=== PATIENT | female | born 1965 | race Caucasian/White ===

== ENCOUNTER → 2019-12-19 13:57 | Outpatient (BNVA) | payer MEDICAID, SELFPAY | PROVIDERS: PCP Family Medicine; Referring Provider Family Medicine; Visit Provider Internal Medicine Cardiovascular Disease | DX: R07.9 Chest pain, unspecified (principal); R00.2 Palpitations; E78.5 Hyperlipidemia, unspecified | CPT/HCPCS: 99213 ==

== ENCOUNTER 2020-01-13 13:49 | Outpatient (REF) | payer MEDICAID, SELFPAY | END 2020-01-13 13:50 | disposition home or self-care (01) | LOC: HO.LAB 13:49 | PROVIDERS: PCP Family Medicine; Visit Provider Internal Medicine | DX: Z20.828 Contact with and (suspected) exposure to other viral communicable diseases (principal) | CPT/HCPCS: U0003 ==

== ENCOUNTER 2020-03-03 12:06 | Outpatient (REF) | payer MEDICAID, SELFPAY ==
--- NOTE | 2020-03-03 12:10 | MM_ITS ---
EXAMINATION: MM SCREENING DIGITAL BREAST TOMOSYNTHESIS, BILATERAL CLINICAL INFORMATION: Screening. Asymptomatic. Benign right stereotactic biopsy 03/12/2019 (breast parenchyma with fibrocystic changes, usual ductal hyperplasia, columnar cell change, apocrine metaplasia, and focal microcalcifications). The lifetime risk of breast cancer based on the Tyrer-Cuzick Model is 5%. COMPARISON: Mammography: 04/12/2019, 03/12/2019, 03/04/2019, 03/01/2018, 02/21/2018 TECHNIQUE: Digital breast tomosynthesis is performed in both the craniocaudal and mediolateral oblique views along with computer-aided detection (CAD). Synthesized 2D images are generated from the tomosynthesis. FINDINGS: There are scattered areas of fibroglandular density (ACR BI-RADS breast composition Category b). Parenchymal pattern is similar to prior studies. There is no developing density or interval mass or architectural abnormality. No abnormal calcifications. Biopsy clip marker central 3:00 right breast is again noted with no recurrent calcifications in this area. The axilla and skin contours are unremarkable. MM/MM tomosynthesis screening BI IMPRESSION: No mammographic evidence of malignancy. ASSESSMENT: BI-RADS 2: Benign RECOMMENDATION: Routine annual mammography screening. This patient's information was entered into a reminder system with a target due date for their next mammogram.
== END 2020-03-03 12:07 | disposition home or self-care (01) ==
LOC: HO.MAMMO 12:06
PROVIDERS: PCP Family Medicine; Visit Provider Family Medicine
DX: Z12.31 Encounter for screening mammogram for malignant neoplasm of breast (principal)
CPT/HCPCS: 77063; 77067

== ENCOUNTER 2020-04-11 18:52 | Emergency (ER) | payer MEDICAID, SELFPAY ==
[2020-04-11 19:02] VITALS: BP 128/66; BP 147/73; PULSE 71; PULSE 89; RESP 17; TEMP 36.6; O2SAT 95; O2SAT 98; BMI 34.4
--- NOTE | 2020-04-11 19:05 | ED_ITS ---
HPI - Chest Pain General Chief Complaint: Chest Pain Stated Complaint: CP,SUB-STERNAL AND NON-RADIATING Time Seen by Provider: 04/11/20 19:03 Source: patient Mode of arrival: EMS Limitations: language barrier History of Present Illness HPI narrative: Patient history of fibromyalgia no known coronary artery disease complaining of chest pain since last night comes and goes increases on palpation feels palpitation and shortness of breath also complaining of nausea when she was in the ambulance pain get worse on palpation and movement MD complaint: chest pain Onset (ago): day(s) (1) Timing of current episode: constant Onset: during rest Pain location: substernal Pain radiation: none Severity: mild Quality: heaviness Relieving factors: nothing Exacerbating factors: palpation and movement Associated symptoms: nausea Treatment prior to arrival: none Related Data Home Medications Medication Instructions Recorded Confirmed baclofen 20 mg tablet 20 mg PO DAILY 12/19/19 12/19/19 bupropion HCl 150 mg tablet,12 hr 150 mg PO BID 12/19/19 12/19/19 sustained-release fluticasone propionate 110 1 puff INHALATION BID 12/19/19 12/19/19 mcg/actuation HFA aerosol inhaler gabapentin 600 mg tablet 600 mg PO DAILY 12/19/19 12/19/19 hydrochlorothiazide 25 mg tablet 25 mg PO DAILY 12/19/19 12/19/19 omeprazole 20 mg capsule,delayed 20 mg PO DAILY 12/19/19 12/19/19 release tramadol 50 mg tablet 50 mg PO Q6H PRN 12/19/19 12/19/19 Previous Rx's Medication Instructions Recorded atorvastatin 20 mg tablet 20 mg PO DAILY 60 Days #60 tab 12/19/19 Allergies Allergy/AdvReac Type Severity Reaction Status Date / Time No Known Allergies Allergy Verified 04/11/20 19:02 Review of Systems Review of Systems: Constitutional : No Weight loss, No Fever, No Chills ENT/Mouth : No sore throat, No Rhinorrhea Eyes: No Eye Pain, No Swelling Cardiovascular : +Chest Pain, no palpitations Respiratory : No Cough, No Sputum, no shortness of breath Gastrointestinal : no Nausea, No Vomiting, No Diarrhea, No abdominal Pain, no black stools Genitourinary : No Dysuria, No Urinary Frequency Musculoskeletal : No joint pain, No Myalgias, No Joint Swelling Skin : No Skin Lesions, No rash Neuro : No Weakness, No Numbness, No Dizziness, No Headache Psych : No Anxiety/Panic, No Depression Heme/Lymph: No Bruising, No Lymphadenopathy Endocrine : No Polyuria, No Polydipsia All other systems reviewed and are negative [facility] Past Medical History Medical History Chest pain HTN (hypertension) Hyperlipidemia Palpitations Scoliosis Surgical History H/O bilateral oophorectomy History of bilateral tubal ligation Family History Family History Father HTN (hypertension) Mother HTN (hypertension) Maternal Grandfather Heart disease Social History Social History Alcohol intake: current Alcohol intake frequency: holidays/special occasions only Smoking Status: Current every day smoker Use of substances other than those prescribed or required for medical reasons: No Advance Directives: No Advance Directives Information Provided: No Physical Exam Vital Signs: Vital Signs: Last Vital Signs Temp 97.9 F 04/11/20 19:02 Pulse 71 04/11/20 19:02 Resp 17 04/11/20 19:02 BP 128/66 04/11/20 19:02 Pulse Ox 95 04/11/20 19:02 Body Mass Index 34.4 Appearance: Alert. Oriented X3. No acute distress. Eyes: Pupils equal, round and reactive to light. ENT: Pharynx normal. Neck: Normal inspection. Neck supple. CVS: Normal heart rate and rhythm. Pulses normal. Midsternal tenderness on palpation Respiratory: No respiratory distress. Breath sounds normal. Abdomen: Soft and nontender. Bowel sounds are present, no mass palpable, no CVA tenderness Skin: Skin warm and dry. Normal skin color. Normal skin turgor. Extremities: No lower extremity edema. Neuro: Oriented X 3. No motor deficit. No sensory deficit. MDM - Chest Pain MDM Narrative Medical decision making narrative: Patient has atypical chest pain reproducible on palpation of the mid sternum and right intercostal space high sensitive troponin is negative normal EKG discharge her home on pain medication patient does have history of fibromyalgia likely the cause of pain Medical Records Data Attestation: I reviewed the patient's medical records. Lab Data Attestation: I reviewed the patient's lab results. Result diagrams: 04/11/20 19:37 04/11/20 19:37 Labs: Lab Results 04/11/20 04/11/20 04/11/20 Range/Units 19:37 19:37 19:37 WBC 10.0 (4.8-10.8) X10*3/uL RBC 4.43 (4.20-5.50) X10*6/uL Hgb 12.7 (12.0-16.0) g/dl Hct 38.8 (37-47) % MCV 87.6 (80-98) fL MCH 28.7 (27.0-33.0) pg MCHC 32.7 (31.0-35.0) g/dl RDW 13.1 (11.0-16.0) % Plt Count 207 (160-400) X10*3/uL MPV 10.8 (9.4-12.3) fL Immature Gran % (Auto) 0.3 (0.0-0.4) % Neut % (Auto) 69.5 (45-73) % Lymph % (Auto) 22.0 (20-40) % [place] % (Auto) 7.6 (2-11) % Eos % (Auto) 0.4 (0-4) % Baso % (Auto) 0.2 (0-2) % Lymph # (Auto) 2.2 (1.2-4.9) X10*3/uL [place] # (Auto) 0.8 (0.1-1.2) X10*3/uL Eos # (Auto) 0.0 (0.0-0.4) X10*3/uL Baso # (Auto) 0.0 (0.0-0.2) X10*3/uL Abs Immat Gran (auto) 0.03 (0.00-0.03) X10*3/uL Absolute Neuts (auto) 7.0 (2.0-8.3) X10*3/uL Absolute Nucleated RBC 0.000 (0.0-0.012) X10*3/uL Nucleated RBC % (auto) 0.0 (0.0-0.2) /100WBC PT 13.0 (10.8-13.0) SEC INR 1.1 (0.9-1.1) Sodium 141 (135-145) mmol/L Potassium 3.5 (3.3-5.1) mmol/L Chloride 106 (96-108) mmol/L Carbon Dioxide 24 (22-29) mmol/L Anion Gap 15 (12-20) BUN 17 H (9-16) mg/dL Creatinine 0.88 (0.5-1.4) mg/dL Estim Creat Clear Calc 85.8 Estimated GFR > 60 Random Glucose 117 H (60-115) mg/dL Calcium 8.8 (8.4-10.2) mg/dL Total Bilirubin 0.4 (0.0-1.0) mg/dL Direct Bilirubin < 0.2 (0.0-0.5) mg/dL AST 27 (5-31) U/L ALT 50 H (0-31) U/L Alkaline Phosphatase 51 (39-117) U/L Troponin I High Sens (<3.5-17.0) ng/L Total Protein 6.4 L (6.5-8.0) g/dL Albumin 3.9 (3.5-5.0) g/dL Lipase 28 (8-78) U/L 04/11/20 Range/Units 19:37 WBC (4.8-10.8) X10*3/uL RBC (4.20-5.50) X10*6/uL Hgb (12.0-16.0) g/dl Hct (37-47) % MCV (80-98) fL MCH (27.0-33.0) pg MCHC (31.0-35.0) g/dl RDW (11.0-16.0) % Plt Count (160-400) X10*3/uL MPV (9.4-12.3) fL Immature Gran % (Auto) (0.0-0.4) % Neut % (Auto) (45-73) % Lymph % (Auto) (20-40) % [place] % (Auto) (2-11) % Eos % (Auto) (0-4) % Baso % (Auto) (0-2) % Lymph # (Auto) (1.2-4.9) X10*3/uL [place] # (Auto) (0.1-1.2) X10*3/uL Eos # (Auto) (0.0-0.4) X10*3/uL Baso # (Auto) (0.0-0.2) X10*3/uL Abs Immat Gran (auto) (0.00-0.03) X10*3/uL Absolute Neuts (auto) (2.0-8.3) X10*3/uL Absolute Nucleated RBC (0.0-0.012) X10*3/uL Nucleated RBC % (auto) (0.0-0.2) /100WBC PT (10.8-13.0) SEC INR (0.9-1.1) Sodium (135-145) mmol/L Potassium (3.3-5.1) mmol/L Chloride (96-108) mmol/L Carbon Dioxide (22-29) mmol/L Anion Gap (12-20) BUN (9-16) mg/dL Creatinine (0.5-1.4) mg/dL Estim Creat Clear Calc Estimated GFR Random Glucose (60-115) mg/dL Calcium (8.4-10.2) mg/dL Total Bilirubin (0.0-1.0) mg/dL Direct Bilirubin (0.0-0.5) mg/dL AST (5-31) U/L ALT (0-31) U/L Alkaline Phosphatase (39-117) U/L Troponin I High Sens < 3.5 (<3.5-17.0) ng/L Total Protein (6.5-8.0) g/dL Albumin (3.5-5.0) g/dL Lipase (8-78) U/L ECG Data ECG #1: Attestation: I personally reviewed and interpreted this ECG as follows: Interpretation: Normal sinus rhythm heart rate 65 beats per minute normal axis normal intervals no acute ST T wave changes impression normal EKG Discharge Plan Discharge Prescriptions: No Action baclofen 20 mg tablet 20 mg PO DAILY RF: 0 tramadol 50 mg tablet 50 mg PO Q6H PRNRF: 0 gabapentin 600 mg tablet 600 mg PO DAILY RF: 0 Flovent HFA 110 mcg/actuation HFA aerosol inhaler 1 puff inhalation BID RF: 0 hydrochlorothiazide 25 mg tablet 25 mg PO DAILY RF: 0 omeprazole 20 mg capsule,delayed release(/EC) 20 mg PO DAILY RF: 0 bupropion HCl [Wellbutrin SR] 150 mg tablet sustained-release 12 hr 150 mg PO BID RF: 0 atorvastatin 20 mg tablet 20 mg PO DAILY 60 Days Qty: 60 RF: 3
--- NOTE | 2020-04-11 19:17 | ECG_ITS ---
Test Reason : CHEST PAIN Blood Pressure : / mmHG Vent. Rate : 065 BPM Atrial Rate : 065 BPM P-R Int : 174 ms QRS Dur : 086 ms QT Int : 424 ms P-R-T Axes : 059 015 046 degrees QTc Int : 440 ms Normal sinus rhythm Normal ECG When compared with ECG of 01-JAN-2019 09:00, No significant change was found Referred By: Giles Vides Electronically Signed By:Jamison Zeng
--- NOTE | 2020-04-11 19:17 | XR_ITS ---
EXAMINATION: XR CHEST CLINICAL INFORMATION: Chest pain COMPARISON: 01/01/2019 TECHNIQUE: Frontal view of the chest was obtained. FINDINGS: Stable cardiomediastinal silhouette. Monitoring leads overlie the chest. Hazy airspace opacities in the right lower lung, more prominent as compared to previous. No focal consolidation left lung. No edema, effusion or pneumothorax. Scoliotic curvature of the spine. XR/XR chest 1V IMPRESSION: Right basilar airspace opacities, more prominent as compared to previous, raising concern for an infiltrate in this region.
[2020-04-11] MEDS: Ketorolac Tromethamine 30 MG/ML VIAL IVPUSH (19:27)
--- NOTE | 2020-04-11 19:27 | PC.NURSE ---
pt medicated for pain per order, vss, cardiac tech nsr 60s
[2020-04-11 19:42] LABS: MANUAL DIFF FLAG NO
[2020-04-11 19:43] LABS: Basophils Percent Auto 0.2 % (0-2); Eosinophils Percent Auto 0.4 % (0-4); Hematocrit 38.8 % (37-47); Hemoglobin 12.7 g/dl (12.0-16.0); Imm Gran Abs Auto 0.03 X10*3/uL (0.00-0.03); Imm Gran Pct Auto 0.3 % (0.0-0.4); Lymphocytes Absolute Auto 2.2 X10*3/uL (1.2-4.9); Mean Corpuscular HGB Conc 32.7 g/dl (31.0-35.0); Mean Corpuscular Hemoglobin 28.7 pg (27.0-33.0); Mean Corpuscular Volume 87.6 fL (80-98); Mean Platelet Volume 10.8 fL (9.4-12.3); Monocytes Absolute Auto 0.8 X10*3/uL (0.1-1.2); Monocytes Percent Auto 7.6 % (2-11); Neutrophils Percent Auto 69.5 % (45-73); Platelet Count 207 X10*3/uL (160-400); Red Blood Count 4.43 X10*6/uL (4.20-5.50); Red Cell Distribution Width 13.1 % (11.0-16.0)
[2020-04-11 19:48] LABS: INTERNATIONAL NORM RATIO 1.1 (0.9-1.1)
[2020-04-11 20:10] LABS: Alanine Aminotransferase 50 U/L (0-31); Albumin Level 3.9 g/dL (3.5-5.0); Alkaline Phosphatase 51 U/L (39-117); Anion Gap 15 (12-20); Aspartate Amino Transferase 27 U/L (5-31); Bilirubin Direct < 0.2 mg/dL (0.0-0.5); Bilirubin Total 0.4 mg/dL (0.0-1.0); Blood Urea Nitrogen 17 mg/dL (9-16); Calcium 8.8 mg/dL (8.4-10.2); Carbon Dioxide 24 mmol/L (22-29); Chloride 106 mmol/L (96-108); Creatinine Clr Calc Pharmacy 85.8; Estimated Glomerular Filt Rate > 60; Glucose Random 117 mg/dL (60-115); Lipase 28 U/L (8-78); Potassium 3.5 mmol/L (3.3-5.1); Sodium 141 mmol/L (135-145); Total Protein 6.4 g/dL (6.5-8.0)
[2020-04-11 20:13] LABS: Troponin-I High Sensitivity < 3.5 ng/L (<3.5-17.0)
[2020-04-11] MEDS: traMADoL HCL 50 MG TABLET PO (20:57)
== END 2020-04-11 21:05 | disposition home or self-care (01) ==
PROVIDERS: Emergency Provider Internal Medicine
DX: R07.89 Other chest pain (principal); M79.7 Fibromyalgia; I10 Essential (primary) hypertension; E78.5 Hyperlipidemia, unspecified; F17.200 Nicotine dependence, unspecified, uncomplicated; Z79.899 Other long term (current) drug therapy
CPT/HCPCS: 36415; 71045; 80048; 80076; 83690; 84484; 85025; 85610; 93005; 96374; 99284; J1885

== ENCOUNTER 2020-04-24 14:52 | Outpatient (REF) | payer MEDICAID, SELFPAY | END 2020-04-24 14:53 | disposition home or self-care (01) | LOC: HO.LAB 14:52 | PROVIDERS: Visit Provider Internal Medicine | DX: Z20.822 Contact with and (suspected) exposure to COVID-19 (principal) | CPT/HCPCS: 36415; C9803; U0003; U0005 ==

== ENCOUNTER 2020-09-07 09:25 | Outpatient (REF) | payer MEDICAID, SELFPAY | END 2020-09-07 09:26 | disposition home or self-care (01) | LOC: HO.HOSX 09:25 | PROVIDERS: Visit Provider Orthopaedic Surgery | DX: M79.641 Pain in right hand (principal) | CPT/HCPCS: 99202 ==

== ENCOUNTER 2020-09-16 09:28 | Outpatient (REF) | payer MEDICAID, SELFPAY ==
[2020-09-16 15:59] LABS: Alanine Aminotransferase 41 U/L (0-31); Albumin Level 4.2 g/dL (3.5-5.0); Alkaline Phosphatase 65 U/L (39-117); Aspartate Amino Transferase 23 U/L (5-31); Bilirubin Direct 0.2 mg/dL (0.0-0.5); Bilirubin Total 0.7 mg/dL (0.0-1.0); Total Protein 6.9 g/dL (6.5-8.0)
== END 2020-09-16 09:29 | disposition home or self-care (01) ==
LOC: HO.LAB 09:28
PROVIDERS: PCP Family Medicine; Referring Provider Family Medicine; Visit Provider Nurse Practitioner Family
DX: K59.00 Constipation, unspecified (principal); R10.9 Unspecified abdominal pain; R14.0 Abdominal distension (gaseous); I10 Essential (primary) hypertension; E78.5 Hyperlipidemia, unspecified; R00.2 Palpitations; M41.9 Scoliosis, unspecified; Z90.722 Acquired absence of ovaries, bilateral; Z98.51 Tubal ligation status
CPT/HCPCS: 36415; 80076; 99202

== ENCOUNTER → 2021-01-20 10:41 | Outpatient (BNVA) | payer MEDICAID, SELFPAY | PROVIDERS: PCP Family Medicine; Referring Provider Family Medicine; Visit Provider Internal Medicine Cardiovascular Disease | DX: R07.9 Chest pain, unspecified (principal) | CPT/HCPCS: 93005; 99212 ==

== ENCOUNTER 2021-04-23 09:34 | Outpatient (REF) | payer MEDICAID, SELFPAY ==
--- NOTE | ~2021-04-23 | MM_ITS ---
EXAMINATION: MM SCREENING DIGITAL BREAST TOMOSYNTHESIS, BILATERAL CLINICAL INFORMATION: Screening. Asymptomatic. The lifetime risk of breast cancer based on the Tyrer-Cuzick Model is 5%. COMPARISON: Mammography: 03/03/2020, 10/11/2019, 03/12/2019, 03/04/2019, 02/26/2019, 02/21/2018 TECHNIQUE: Digital breast tomosynthesis is performed in both the craniocaudal and mediolateral oblique views along with computer-aided detection (CAD). Synthesized 2D images are generated from the tomosynthesis. FINDINGS: There are scattered areas of fibroglandular density (ACR BI-RADS breast composition Category b). There are no significant masses, abnormal calcifications, or other abnormalities. There is biopsy clip marker mid 3:30 o'clock right breast. No recurrent calcifications. Background bilateral stromal markings are similar to prior studies. No developing density. No significant changes. MM/MM tomosynthesis screening BI IMPRESSION: No mammographic evidence of malignancy. ASSESSMENT: BI-RADS 2: Benign RECOMMENDATION: Routine annual mammography screening. This patient's information was entered into a reminder system with a target due date for their next mammogram.
== END 2021-04-23 09:35 | disposition home or self-care (01) ==
LOC: HO.MAMMO 09:34
PROVIDERS: PCP Family Medicine; Visit Provider Family Medicine
DX: Z12.31 Encounter for screening mammogram for malignant neoplasm of breast (principal)
CPT/HCPCS: 77063; 77067

== ENCOUNTER → 2021-07-19 10:36 | Outpatient (BNVA) | payer MEDICAID, SELFPAY | PROVIDERS: PCP Family Medicine; Referring Provider Family Medicine; Visit Provider Nurse Practitioner Family | DX: K21.9 Gastro-esophageal reflux disease without esophagitis (principal); K58.1 Irritable bowel syndrome with constipation; K59.04 Chronic idiopathic constipation; R10.12 Left upper quadrant pain | CPT/HCPCS: 99212 ==

== ENCOUNTER 2021-08-10 08:21 | Outpatient (REF) | payer MEDICAID, SELFPAY ==
[2021-08-10 09:10] LABS: Hematocrit 41.9 % (37.0-47.0); Hemoglobin 13.4 g/dl (12.0-16.0); Mean Corpuscular Hemoglobin 28.5 pg (27.0-33.0); Mean Platelet Volume 10.8 fL (9.4-12.3); Platelet Count 221 X10*3/uL (160-400); Red Blood Count 4.71 X10*6/uL (4.20-5.50); Red Cell Distribution Width 13.5 % (11.0-16.0); White Blood Count 6.8 X10*3/uL (4.8-10.8)
[2021-08-10 09:35] LABS: Alanine Aminotransferase 27 U/L (0-31); Albumin Level 3.9 g/dL (3.5-5.0); Alkaline Phosphatase 50 U/L (39-117); Anion Gap 11 (12-20); Aspartate Amino Transferase 19 U/L (5-31); Bilirubin Total 0.5 mg/dL (0.0-1.0); Blood Urea Nitrogen 15 mg/dL (9-16); Calcium 9.5 mg/dL (8.4-10.2); Carbon Dioxide 26 mmol/L (22-29); Chloride 108 mmol/L (96-108); Estimated Glomerular Filt Rate > 60; Glucose Random 106 mg/dL (60-115); Lipase 20 U/L (8-78); Potassium 4.7 mmol/L (3.3-5.1); Sodium 140 mmol/L (135-145); Total Protein 6.6 g/dL (6.5-8.0)
[2021-08-10 10:03] LABS: TSH reflex Free T4 0.99 uIU/mL (0.32-4.0)
[2021-08-10 10:06] LABS: Folate 13.4 ng/mL (> or = 4.0); Vitamin B12 193 pg/mL (200-900)
[2021-08-14 12:41] LABS: Vitamin D 25-OH, D2 <4 ng/mL; Vitamin D 25-OH, D3 20 ng/mL; Vitamin D 25-OH, Total 20 ng/mL (30-100)
[2021-08-15 16:26] LABS: Pancreatic Elastase-1 291 mcg/g
== END 2021-08-10 08:22 | disposition home or self-care (01) ==
LOC: HO.LAB 08:21
PROVIDERS: Internal Medicine Cardiovascular Disease; PCP Family Medicine; Visit Provider Nurse Practitioner Family
DX: R10.9 Unspecified abdominal pain (principal); R19.7 Diarrhea, unspecified; E55.9 Vitamin D deficiency, unspecified; K21.9 Gastro-esophageal reflux disease without esophagitis
CPT/HCPCS: 36415; 80053; 82306; 82607; 82656; 82746; 83690; 84443; 85027; 87338

== ENCOUNTER → 2021-10-01 10:08 | Outpatient (BNVA) | payer MEDICAID, SELFPAY | PROVIDERS: PCP Family Medicine; Visit Provider Nurse Practitioner Family | DX: Z01.818 Encounter for other preprocedural examination (principal); K21.9 Gastro-esophageal reflux disease without esophagitis; K58.2 Mixed irritable bowel syndrome; A04.8 Other specified bacterial intestinal infections; Z79.899 Other long term (current) drug therapy | CPT/HCPCS: 99212 ==

== ENCOUNTER 2021-10-15 09:55 | Outpatient (REF) | payer MEDICAID, SELFPAY ==
[2021-10-16 11:14] LABS: H Pylori Breath Test Positive (Negative)
== END 2021-10-15 09:56 | disposition home or self-care (01) ==
LOC: HO.LAB 09:55
PROVIDERS: Visit Provider Nurse Practitioner Family
DX: R10.9 Unspecified abdominal pain (principal); K21.9 Gastro-esophageal reflux disease without esophagitis
CPT/HCPCS: 36415; 83013; 99211

== ENCOUNTER 2021-12-03 17:35 | Outpatient (REF) | payer MEDICAID, SELFPAY ==
[2021-12-05 14:56] LABS: H Pylori Breath Test Positive (Negative)
== END 2021-12-03 17:36 | disposition home or self-care (01) ==
LOC: HO.LNP 17:35
PROVIDERS: Visit Provider Nurse Practitioner Family
DX: Z01.818 Encounter for other preprocedural examination (principal); A04.8 Other specified bacterial intestinal infections; K21.9 Gastro-esophageal reflux disease without esophagitis
CPT/HCPCS: 83013; 99212

== ENCOUNTER 2022-03-04 07:27 | Day surgery (SDC) | payer MEDICAID, SELFPAY ==
[2022-03-04 07:43] VITALS: BMI 34.1
--- NOTE | 2022-03-04 07:43 | P.HPSUR_ITS ---
Pre-Procedural Eval Section A
--- NOTE | 2022-03-04 07:43 | MHC.SHP ---
Pre-Procedural Eval Section A Date of Service: 03/04/22 The patient is an INPATIENT: No The History & Physical has been completed within 30 days and I have reviewed it.: No Section B Chief Complaint: reflux,constipation Details of Present Illness: Colon cancer screening, GERD Relevant Family History (Specify if Yes): No Relevant Social History: Tobacco Use Present Medications: see Short Stay Collaborative assessment Medical History: Significant History (Chest pain HTN (hypertension) Hyperlipidemia Palpitations Scoliosis) History of Previous Operations: Relevant previous surgery/procedure and date(s) (H/O bilateral oophorectomy History of bilateral tubal ligation) Allergies: Allergies Allergy/AdvReac Type Severity Reaction Status Date / Time No Known Allergies Allergy Verified 03/04/22 07:41 Review of Systems Sugical H&P ROS: Negative: Constitution, Cardiovascular, Respiratory and Gastrointestinal Exam Surgical H&P Exam: Normal: Heart, Normal: Lungs, Normal: Extremities and Normal: Abdomen Plan Diagnosis/Plan: Unchanged I have reviewed the history and physical and performed a pertinent physical examination on my patient. No changes have occurred unless specified. Time Spent With Patient Time: Total time managing care of this patient today ____ minutes.
[2022-03-04 07:49] VITALS: BP 132/76; PULSE 63; RESP 16; TEMP 36.6; O2SAT 96
[2022-03-04] MEDS: Lactated Ringers 1,000 ML 100 ML IVCONT (08:05)
--- NOTE | 2022-03-04 08:34 | HO.ANESPROP2 ---
[facility] Active Problems Active Problems: All Active Problems (Updated 03/04/22 @ 07:40 by Paola Pappas RN) Strain of finger of right hand (Acute) Hyperlipidemia (Acute) Scoliosis (Acute) Chest pain (Acute) Palpitations (Acute) Past Medical History Medical History Back pain Chest pain Depression HTN (hypertension) Hx of sleep apnea Hyperlipidemia Palpitations Scoliosis Smoker Family History Family History Father HTN (hypertension) Mother HTN (hypertension) Maternal Grandfather Heart disease Family history of problems with anesthesia: No Surgical History Surgical History H/O bilateral oophorectomy History of bilateral tubal ligation History of surgery on left wrist History of Problems with Anesthesia: No Social History Social History Alcohol intake: current Alcohol intake frequency: holidays/special occasions only Patient Tobacco Use Status: Current everyday Tobacco user Tobacco use type: Cigarette Cigarette Packs Per Day: 1 Cigarettes Per Day: 12 Years Smoked: 40 +/- Use of substances other than those prescribed or required for medical reasons: No Are you DNR?: No Advance Directives: No Advance Directives Information Provided: Yes Current occupational status: disabled Current occupation: rt hand Meds Allergies Allergy/AdvReac Type Severity Reaction Status Date / Time No Known Allergies Allergy Verified 03/04/22 07:41 Active Medications: Current Medications Albuterol Sulfate (Albuterol Sulfate (0.083%) 2.5 Mg/3 Ml Vial.Neb) 2.5 mg INHALE ONCE PRN PRN Reason: Shortness of Breath/Wheezing Lactated Ringer's (Lr) 1,000 mls @ 100 mls/hr IVCONT .Q10H DEIDRE Last Admin: 03/04/22 08:05 Dose: 100 mls/hr Home Medications Medication Instructions Recorded Confirmed Last Taken Type baclofen 20 mg tablet 20 mg PO DAILY 12/19/19 03/04/22 Unknown History bupropion HCl 150 mg tablet,12 hr 150 mg PO BID 12/19/19 03/04/22 Unknown History sustained-release (Wellbutrin SR) fluticasone propionate 110 1 puff inhalation BID 12/19/19 03/04/22 Unknown History mcg/actuation HFA aerosol inhaler (Flovent HFA) gabapentin 600 mg tablet 600 mg PO BID 12/19/19 03/04/22 Unknown History hydrochlorothiazide 25 mg tablet 25 mg PO DAILY 12/19/19 03/04/22 Unknown History albuterol sulfate 90 mcg/actuation 2 puff inhalation Q4-6H PRN 03/01/22 03/04/22 Unknown History aerosol inhaler (ProAir HFA) Wheezing Exam Exam Date and Time: March 04, 2022 0834 Height,Weight and Vital Signs: Height 5 ft 5 in Weight 92.986 kg Last Vital Signs Temp 97.8 F 03/04/22 07:49 Pulse 63 03/04/22 07:49 Resp 16 03/04/22 07:49 BP 132/76 03/04/22 07:49 Pulse Ox 96 03/04/22 07:49 O2 Del Method 03/04/22 07:49 Airway Mallampati Class: II TM Dist: >3cm Neck ROM: Full Heart: rrr Lungs: cta Assessment and Plan Assessment Anesthesia Assessment: Anesthesia Plan Discussed and Chart Reviewed Final Anesthetic Review Family History of Problems with Anesthesia: No History of Problems with Anesthesia: No NPO: Yes ASA Class: III Final Preanesthetic Review: No Changes in Pt Med Stat, Meds/Allgs Chart Reviewed and Consent Obtained/Reviewed Patient Risk: Intermediate Procedure Risk: Intermediate Anesthetic Plan Anesthetic Plan: MAC: Disposition: Standard PACU
--- NOTE | 2022-03-04 08:38 | PM.OP ---
Brief Operative Note Date of Service: 03/04/22 Pre-op diagnosis: colon cancer screening, GERD Post-op diagnosis: other ( GERD, HIATAL HERNIA, GASTRITIS, COLON POLYPS, DIVERTICULOSIS, HEMORRHOIDS) Procedure: EGD WITH BIOPSIES COLONOSCOPY TO CECUM WITH BIOPSIES AND SNARE POLYPECTOMY Surgeon: Kate Boyd MD Anesthesia: MAC Was an Field Marketing Team Leader used for this Procedure?: Yes Field Marketing Team Leader: Supa Bernal Estimated blood loss (mL): 0 Pathology: other (A- GASTRIC ANTRUM BXS R/O H. PYLORI B- SMALL BOWEL BXS R/O SPRU C- GASTRIC BODY BXS D- TRANSVERSE COLON POLYP E - ASCENDING COLON POLYP F- RECTAL POLYPS) Condition: stable Disposition: PACU
--- NOTE | 2022-03-04 08:38 | W.PM.OPN ---
Operative Note Operative Note Date of Service: 03/04/22 Narrative: Pre-op diagnosis: colon cancer screening, GERD Post-op diagnosis:?GERD, HIATAL HERNIA, GASTRITIS, COLON POLYPS, DIVERTICULOSIS, HEMORRHOIDS Surgeon: Kate Boyd MD Anesthesia:?MAC FLEXIBLE TRANSORAL UPPER GASTROINTESTINAL ENDOSCOPY WITH BIOPSIES AND COLONOSCOPY TILL CECUM WITH BIOPSIES AND SNARE POLYPECTOMY UPPER ENDOSCOPY Consent: Indications for the procedure and potential complications of bleeding, perforation, reaction to medications and missed diagnosis were discussed with the patient and informed consent was obtained. Instrument: Olympus GIF H 190 mid size upper endoscope Monitoring: Vital signs and clinical assessment, continuous EKG monitoring, Pulse oximetry, Carbon Dioxide monitoring and blood pressure monitoring were done throughout the procedure. Procedure: The patient was placed in the left lateral decubitis position and pre-procedure medications were administered and a bite block was placed. The endoscope was inserted into the mouth and advanced under direct vision to the third part of duodenum. A careful inspection was made as the upper endoscope was withdrawn including a retroflexed examination of the proximal stomach; Findings and interventions are described below. Findings: Larynx: Normal Esophagus: GE junction at 32 cms, hiatal hernia 32 to 35 cms. A small 0.5 cms healing erosion. No Christine's. Stomach: Moderate diffuse gastric erythema. Biopsies were obtained from the gastric body and antrum. Antral biopsies obtained for H Pylori culture and sensitivity. Grade 3 flap valve on retroflexed examination of the cardia. Duodenum: Normal bulb and descending duodenum. Biopsies were obtained from 3rd part of the duodenum to check for celiac sprue Intervention: Biopsies as noted above COLONOSCOPY PROCEDURE NOTE Consent: Indications for the procedure and potential complications of bleeding, perforation, reaction to medications and missed diagnosis were discussed with the patient and informed consent was obtained. Instrument: Olympus PCF H 190 L variable stiffness pediatric colonoscope Monitoring: Vital signs and clinical assessment, intermittent blood pressure monitoring, continuous EKG monitoring, Pulse oximetry and Carbon Dioxide monitoring were done throughout the procedure. Colon withdrawl time was 17 minutes. Procedure: The patient was placed in the left lateral decubitis position and pre-procedure medications were administered. After a digital rectal examination of the ano-rectum, the video colonoscope was inserted into the rectum and advanced through the colon to the cecum. The colonoscope was slowly withdrawn in a retrograde panoramic fashion and the colon mucosa was carefully examined including a retroflexed view of the rectum. Findings and interventions are described below. Procedure Difficulty: : Without difficulty Findings: Terminal Ileum: Not evaluated Cecum: Normal Ascending Colon: A 3-4 mm sessile polyp removed with a cold bx Transverse Colon: A 12 mm sessile polyp in the proximal TC removed with a cold snare Descending Colon: Normal Sigmoid Colon: Moderate diverticulosis Rectum: A 15 to 18 mm sessile polyp removed with a hot snare. A few 5 to 10 mm diminutive appearing polyps - one removed with a cold bx. Ano-rectum: Moderate internal hemorrhoids Colon preparation: Excellent Impression and Post Procedure Diagnosis: Endoscopy Findings: ESOPHAGUS: GE junction at 32 cms, hiatal hernia 32 to 35 cms. A small 0.5 cms healing erosion. No Christine's. STOMACH: Moderate diffuse gastric erythema. Biopsies were obtained from the gastric body and antrum. Antral biopsies obtained for H Pylori culture and sensitivity. Grade 3 flap valve on retroflexed examination of the cardia. DUODENUM: Normal - biopsied to check for celiac sprue Colonoscopy Findings: Four small to medium sized polyps removed Moderate diverticulosis seen in the sigmoid colon Moderate hemorrhoids on retroflexed exam. Plan: Await pathology results Patient has an appointment on 03/18/22 in the GI Clinic with Millicent Osuna FNP-BC. Repeat Colonoscopy interval based on path results - in 3-5 years if polyps are adenomatous and 10 years if polyps are hyperplastic. GERD, Hiatal Hernia, colon polyps and diverticulosis handouts were given in the discharge area
[2022-03-04 09:35] VITALS: BP 117/70; PULSE 76; RESP 16; TEMP 36.4; O2SAT 99
[2022-03-04 09:50] VITALS: BP 141/90; PULSE 55; RESP 18; TEMP 36.6; O2SAT 99
[2022-03-04 10:09] VITALS: BP 140/86
== END 2022-03-04 10:20 ==
LOC: HO.SSS 07:27
PROVIDERS: PCP Family Medicine; Visit Provider Internal Medicine Gastroenterology
PROC: (CPT 45385; principal; 2022-03-04 08:30)
DX: Z12.11 Encounter for screening for malignant neoplasm of colon (principal); D12.3 Benign neoplasm of transverse colon; K63.5 Polyp of colon; K62.1 Rectal polyp; K57.30 Diverticulosis of large intestine without perforation or abscess without bleeding; K64.8 Other hemorrhoids; K58.9 Irritable bowel syndrome, unspecified; K21.9 Gastro-esophageal reflux disease without esophagitis; K29.50 Unspecified chronic gastritis without bleeding; B96.81 Helicobacter pylori [H. pylori] as the cause of diseases classified elsewhere; K44.9 Diaphragmatic hernia without obstruction or gangrene; I10 Essential (primary) hypertension; E78.5 Hyperlipidemia, unspecified; Z79.899 Other long term (current) drug therapy; F17.210 Nicotine dependence, cigarettes, uncomplicated
CPT/HCPCS: 45385; 45380; 43239; 36415; 87081; 88305; 88342

== ENCOUNTER → 2022-03-18 11:18 | Outpatient (BNVA) | payer MEDICAID, SELFPAY | PROVIDERS: PCP Family Medicine; Visit Provider Nurse Practitioner Family | DX: K21.9 Gastro-esophageal reflux disease without esophagitis (principal); A04.8 Other specified bacterial intestinal infections; Z98.890 Other specified postprocedural states | CPT/HCPCS: 99212 ==

== ENCOUNTER 2022-04-29 09:01 | Outpatient (REF) | payer MEDICAID, SELFPAY ==
--- NOTE | ~2022-04-29 | MM_ITS ---
EXAMINATION: MM SCREENING DIGITAL BREAST TOMOSYNTHESIS, BILATERAL CLINICAL INFORMATION: Screening. Asymptomatic. The lifetime risk of breast cancer based on the Tyrer-Cuzick Model is 5%. COMPARISON: Mammography: 04/23/2021, 03/03/2020, 10/11/2019, 03/12/2019, 03/04/2019, 02/26/2019 TECHNIQUE: Digital breast tomosynthesis is performed in both the craniocaudal and mediolateral oblique views along with computer-aided detection (CAD). Synthesized 2D images are generated from the tomosynthesis. FINDINGS: There are scattered areas of fibroglandular density (ACR BI-RADS breast composition Category b). There are no significant masses, abnormal calcifications, or other abnormalities. Parenchymal pattern is similar to prior studies. There is no developing density or architectural abnormality. Biopsy clip marker again noted central mid 3:00 right breast. The axilla and skin contours are unremarkable. No significant changes. MM/MM tomosynthesis screening BI IMPRESSION: No mammographic evidence of malignancy. ASSESSMENT: BI-RADS 1: Negative RECOMMENDATION: Routine annual mammography screening. This patient's information was entered into a reminder system with a target due date for their next mammogram.
== END 2022-04-29 09:02 | disposition home or self-care (01) ==
LOC: HO.MAMMO 09:01
PROVIDERS: PCP Family Medicine; Visit Provider Family Medicine
DX: Z12.31 Encounter for screening mammogram for malignant neoplasm of breast (principal)
CPT/HCPCS: 77063; 77067

== ENCOUNTER 2022-06-16 12:25 | Outpatient (REF) | payer MEDICAID, SELFPAY ==
--- NOTE | ~2022-06-16 | US_ITS ---
EXAMINATION: US PELVIS COMPLETE CLINICAL INFORMATION: Intermittent pelvic pain COMPARISON: Pelvic ultrasound 02/14/2014 TECHNIQUE: Transabdominal and transvaginal imaging was performed. FINDINGS: The uterus is of normal size and echogenicity measuring 7.1 x 3.0 x 3.5 cm. A regular homogeneous endometrium is identified measuring 0.1 cm. Nabothian cysts in the cervix. The ovaries were not identified sonographically. No adnexal mass. There is no pelvic free fluid. US/US pelvic and transvaginal IMPRESSION: Ovaries were not identified sonographically. No adnexal mass. Unremarkable appearance of the uterus.
== END 2022-06-16 12:26 | disposition home or self-care (01) ==
LOC: HO.US 12:25
PROVIDERS: PCP Family Medicine; Visit Provider Family Medicine
DX: R10.2 Pelvic and perineal pain (principal)
CPT/HCPCS: 76830; 76856

== ENCOUNTER → 2022-07-06 10:53 | Outpatient (BNVA) | payer MEDICAID, SELFPAY | PROVIDERS: PCP Family Medicine; Visit Provider Nurse Practitioner Family | DX: K21.9 Gastro-esophageal reflux disease without esophagitis (principal); K58.1 Irritable bowel syndrome with constipation; R10.9 Unspecified abdominal pain; R14.0 Abdominal distension (gaseous) | CPT/HCPCS: 99212 ==

== ENCOUNTER 2022-07-07 07:42 | Outpatient (REF) | payer MEDICAID, SELFPAY ==
--- NOTE | ~2022-07-07 | CT_ITS ---
EXAMINATION: CT ABDOMEN AND PELVIS WITH CONTRAST CLINICAL INFORMATION: Abdominal pain COMPARISON: 03/04/2014 TECHNIQUE: Multidetector volumetric images were obtained from the superior aspect of the liver through the pubic symphysis following administration 85 mL of Omnipaque 350 intravenous contrast. Sagittal and coronal reformatted images were obtained on the technologist's workstation. Oral contrast: No This CT examination was performed using dose optimization techniques as appropriate, variously including the following: *Automated exposure control *Adjustment of mA and/or kV according to patient size (this includes techniques or standardized protocols for targeted exams where dose is matched to indication/reason for exam; i.e. extremities or head) *Use of iterative reconstruction technique DLP: 567 mGy-cm FINDINGS: LUNG BASES: The visualized lung bases are unremarkable. LIVER, GALLBLADDER, AND BILIARY TREE: The liver is normal in size, shape, and attenuation. No focal hepatic lesion or biliary ductal dilatation is present. The gallbladder is unremarkable with no evidence of radiopaque gallstones, gallbladder wall thickening, or obvious pericholecystic inflammatory changes. PANCREAS: Unremarkable. SPLEEN: Unremarkable. ADRENAL GLANDS: Unremarkable. KIDNEYS AND URETERS: The kidneys are in the early nephrographic phase. Some scattered areas of low density may well represent evolving cystic change. BLADDER: Unremarkable. GASTROINTESTINAL TRACT: The bowel pattern is felt to be nonobstructing. There is no free fluid. The appendix is normal. ABDOMINAL WALL: No significant hernia is appreciated. LYMPH NODES: There is no bulky adenopathy here. VASCULAR: Atherosclerotic changes are noted. Mild. Small hiatal hernia is noted PELVIC VISCERA: Unremarkable. OSSEOUS STRUCTURES: Scoliosis in the spine. No compression injury. CT/CT abdomen pelvis w IV con IMPRESSION: No acute finding. The bowel pattern is nonobstructing. There is no free fluid. Fleischner guidelines were followed.
[2022-07-07] MEDS: Barium Sulfate Oral (Vanilla) 450 ML ORAL.SUSP 900 ML PO (11:25)
[2022-07-07] MEDS: iohexoL 350 MG/ML 100 ML INFUS..BTL 85 ML IV (11:26)
[2022-07-11 08:36] LABS: Creatinine POC 0.7 mg/dL (0.5-1.4); GFR POC > 60
== END 2022-07-07 07:43 | disposition home or self-care (01) ==
LOC: HO.CT 07:42
PROVIDERS: PCP Family Medicine; Visit Provider Nurse Practitioner Family
DX: R10.9 Unspecified abdominal pain (principal)
CPT/HCPCS: 74177; 82565; Q9967

== ENCOUNTER 2022-07-08 11:40 | Outpatient (REF) | payer MEDICAID, SELFPAY ==
--- NOTE | ~2022-07-08 | CT_ITS ---
EXAMINATION: LUNG CANCER SCREENING CT CHEST WITHOUT CONTRAST CLINICAL INFORMATION: Current smoker with 36 pack year history COMPARISON: None TECHNIQUE: Multidetector volumetric CT imaging of the chest was obtained noncontrast using low dose screening CT technique. Axial thin section 0.625 mm reformations in soft tissue and lung windows were obtained. Sagittal and coronal reformations were obtained. Axial MIP images were also created and reviewed. This CT examination was performed using dose optimization techniques as appropriate, variously including the following: *Automated exposure control *Adjustment of mA and/or kV according to patient size (this includes techniques or standardized protocols for targeted exams where dose is matched to indication/reason for exam; i.e. extremities or head) *Use of iterative reconstruction technique TOTAL EXAM DLP: 53 mGy-cm FINDINGS: PULMONARY NODULES: No suspicious pulmonary nodules. Punctate nodule, right upper lobe. LUNGS / PLEURA: Mild upper lobe predominant paraseptal emphysema. Diffuse mild subpleural reticulation. No pleural effusion or pneumothorax. MEDIASTINUM / WU: Heart normal in size without pericardial effusion. Great vessels normal caliber. No lymphadenopathy. Coronary calcifications present. Imaged thyroid gland unremarkable. CHEST WALL / AXILLA: Unremarkable. UPPER ABDOMEN: Included portions grossly unremarkable allowing for limitations in technique. OSSEOUS STRUCTURES: No acute or suspicious osseous abnormalities. CT/CT lung screening IMPRESSION: * No evidence of pulmonary malignancy. * Mild emphysema ASSESSMENT: Lung RADS category: 2. Benign appearance or behavior. Nodules with a very low likelihood of becoming a clinically active cancer due to size or lack of growth. Continue annual screening with low-dose CT in 12 months. Probability of malignancy less than 1%. INCIDENTAL FINDINGS (S CATEGORY): None. RECOMMENDATION: Follow up low dose CT chest in 1 year.
[2022-07-08 13:16] LABS: Alanine Aminotransferase 33 U/L (0-31); Albumin Level 3.9 g/dL (3.5-5.0); Alkaline Phosphatase 55 U/L (39-117); Anion Gap 10 (12-20); Aspartate Amino Transferase 18 U/L (5-31); Bilirubin Total 0.5 mg/dL (0.0-1.0); Blood Urea Nitrogen 14 mg/dL (9-16); Calcium 9.4 mg/dL (8.4-10.2); Carbon Dioxide 31 mmol/L (22-29); Chloride 106 mmol/L (96-108); Estimated Glomerular Filt Rate > 60; Glucose Random 100 mg/dL (60-115); Lipase 20 U/L (8-78); Potassium 4.2 mmol/L (3.3-5.1); Sodium 143 mmol/L (135-145); Total Protein 6.3 g/dL (6.5-8.0)
== END 2022-07-08 11:41 | disposition home or self-care (01) ==
LOC: HO.CT 11:40
PROVIDERS: Internal Medicine Cardiovascular Disease; Absent Provider Nurse Practitioner Family; PCP Family Medicine; Visit Provider Physician Assistant Medical
DX: Z12.2 Encounter for screening for malignant neoplasm of respiratory organs (principal); F17.210 Nicotine dependence, cigarettes, uncomplicated; K21.9 Gastro-esophageal reflux disease without esophagitis; R10.9 Unspecified abdominal pain
CPT/HCPCS: 36415; 71271; 80053; 83690; G0296

== ENCOUNTER → 2022-08-31 10:59 | Outpatient (BNVA) | payer MEDICAID, SELFPAY | PROVIDERS: PCP Family Medicine; Visit Provider Nurse Practitioner Family | DX: K21.9 Gastro-esophageal reflux disease without esophagitis (principal); K58.1 Irritable bowel syndrome with constipation; R10.10 Upper abdominal pain, unspecified; R14.0 Abdominal distension (gaseous) | CPT/HCPCS: 99212 ==

== ENCOUNTER 2022-12-21 13:58 | Outpatient (REF) | payer MEDICAID, SELFPAY ==
--- NOTE | ~2022-12-21 | XR_ITS ---
EXAMINATION: XR CERVICAL SPINE CLINICAL INFORMATION: Neck pain. COMPARISON: Cervical spine radiographs dated 07/16/2010. TECHNIQUE: Frontal, odontoid and lateral views of the cervical spine were obtained. FINDINGS: There is bony demineralization. Vertebral body heights are normal. There is a mild cervicothoracic levoscoliosis, which may be positional. At C5-C6, there is mild posterior disc space narrowing, with spondylosis. At C6-C7, there is moderate disc space narrowing, with spondylosis. The remaining disc spaces are relatively well-maintained. No acute fracture or spondylolisthesis is seen. The posterior elements are intact. The dens is intact. No prevertebral soft tissue swelling is seen. There are bilateral carotid atherosclerotic calcifications. XR/XR cervical spine 3V IMPRESSION: 1. There is mild degenerative disc disease at C5-C6, and moderate degenerative disc disease is seen at C6-C7. 2. There is cervical spondylosis, most pronounced at C5-C6 and C6-C7. 3. There is a mild cervicothoracic levoscoliosis, which may be positional. 4. Bilateral carotid atherosclerotic calcifications are seen, which can be more fully evaluated with dedicated carotid ultrasound, if clinically indicated.
== END 2022-12-21 13:59 | disposition home or self-care (01) ==
LOC: HO.XRAY 13:58
PROVIDERS: Visit Provider Family Medicine
DX: M54.2 Cervicalgia (principal)
CPT/HCPCS: 72040

== ENCOUNTER 2023-05-02 10:32 | Outpatient (REF) | payer MEDICAID, SELFPAY ==
--- NOTE | ~2023-05-02 | MM_ITS ---
EXAMINATION: MM SCREENING DIGITAL BREAST TOMOSYNTHESIS, BILATERAL CLINICAL INFORMATION: Screening. Asymptomatic. COMPARISON: Mammography: This study is compared with prior exams dating back to 2019. TECHNIQUE: Digital breast tomosynthesis is performed in both the craniocaudal and mediolateral oblique views along with computer-aided detection (CAD). Synthesized 2D images are generated from the tomosynthesis. FINDINGS: There are scattered areas of fibroglandular density (ACR BI-RADS breast composition Category b). There are no significant masses, abnormal calcifications, or other abnormalities. There is tissue marker present in the medial aspect of the right breast from prior benign percutaneous biopsy. MM/MM tomosynthesis screening BI IMPRESSION: No mammographic evidence of malignancy. ASSESSMENT: BI-RADS BI-RADS 2 - Benign Findings RECOMMENDATION: Routine annual mammography screening. 1 year F/U This examination should not preclude the clinical evaluation of a suspicious palpable abnormality. This patient's information was entered into a reminder system with a target due date for their next mammogram.
== END 2023-05-02 10:33 | disposition home or self-care (01) ==
LOC: HO.MAMMO 10:32
PROVIDERS: PCP Family Medicine; Visit Provider Family Medicine
DX: Z12.31 Encounter for screening mammogram for malignant neoplasm of breast (principal)
CPT/HCPCS: 77063; 77067

== ENCOUNTER → 2023-05-02 10:45 | Outpatient (BNV) | payer MEDICAID, SELFPAY | PROVIDERS: PCP Family Medicine; Visit Provider Radiology Diagnostic Radiology | DX: Z12.31 Encounter for screening mammogram for malignant neoplasm of breast (principal) | CPT/HCPCS: 77063; 77067 ==

== ENCOUNTER 2024-01-02 15:35 | Outpatient (REF) | payer MEDICAID, SELFPAY ==
--- NOTE | ~2024-01-02 | CT_ITS ---
EXAMINATION: CT LOW-DOSE SCREENING CHEST WITHOUT CONTRAST CLINICAL INFORMATION: Nicotine dependence, cigarettes, uncomplicated. The patient is a current smoker with a 35 pack-year history of smoking. COMPARISON: CT chest 07/08/2022 and x-ray chest 04/11/2020. TECHNIQUE: Multidetector volumetric CT imaging of the chest is performed on a Siemens SOMATOM Definition scanner without contrast using low dose technique. Additional 2D coronal and sagittal reformatted images and axial 3D maximum intensity projection (MIP) images are generated on the CT workstation. This CT examination was performed using dose optimization techniques as appropriate, variously including the following: *Automated exposure control *Adjustment of mA and/or kV according to patient size (this includes techniques or standardized protocols for targeted exams where dose is matched to indication/reason for exam; i.e. extremities or head) *Use of iterative reconstruction technique TOTAL EXAM DLP: 58 mGy-cm. CTDIvol: 1.75 mGy. FINDINGS: PULMONARY NODULES: Small 3 mm subpleural right upper lobe nodule, unchanged (5:105, compare prior 5:121). Unchanged 3 mm nodular density, which may be endobronchial in the right upper lobe (5:91, compare prior 5:95). There is no new, increasing-sized or concerning nodule. LUNGS: Lungs bilaterally symmetrically expanded. There is mild emphysema and bronchial thickening without bronchiectasis. No effusion or pneumothorax. Central airways patent. MEDIASTINUM: No mediastinal, hilar or axillary adenopathy or free fluid collection. CORONARY ARTERY CALCIFICATION: None visualized on this study. THYROID GLAND: Unremarkable to the extent seen. CARDIOVASCULAR STRUCTURES: Aortic and heart size normal. No pericardial effusion. CHEST WALL/AXILLA: Unremarkable. UPPER ABDOMEN: Included portions of the solid organs in the upper abdomen unremarkable on noncontrast imaging. OSSEOUS STRUCTURES: There is a biconvex thoracolumbar scoliosis present along with degenerative changes in the spine, similar to prior CT/CT lung screening IMPRESSION: 1. Stable small pulmonary nodules. No new or increasing-sized nodule. 2. Mild emphysema and bronchial thickening. 3. Other incidental findings as described above. ASSESSMENT: 1. Lung-RADS Category 2: Benign appearance or behavior of nodules. N/A 2. Lung-RADS Category S: Negative. There are no clinically significant or potentially clinically significant findings not related to the lungs requiring urgent additional evaluation. RECOMMENDATION: Continued routine annual low-dose CT lung screening in 1 year is recommended. An order for CT CHEST LOW DOSE CANCER SCREENING ([id number]) can be placed. Electronically signed by: Rufino Mancera MD 02/21/2024 01:11 PM [facility]
== END 2024-01-02 15:36 | disposition home or self-care (01) ==
LOC: HO.CT 15:35
PROVIDERS: PCP Family Medicine; Visit Provider Physician Assistant Medical
DX: Z12.2 Encounter for screening for malignant neoplasm of respiratory organs (principal); F17.210 Nicotine dependence, cigarettes, uncomplicated
CPT/HCPCS: 71271

== ENCOUNTER 2024-03-19 10:43 | Outpatient (REF) | payer MEDICAID, SELFPAY ==
[2024-03-19 13:19] LABS: Hematocrit 42.7 % (37.0-47.0); Hemoglobin 13.8 g/dl (12.0-16.0); Mean Corpuscular HGB Conc 32.3 g/dl (31.0-35.0); Mean Corpuscular Hemoglobin 28.2 pg (27.0-33.0); Mean Corpuscular Volume 87.3 fL (80.0-98.0); Mean Platelet Volume 11.4 fL (9.4-12.3); Platelet Count 228 X10*3/uL (160-400); Red Blood Count 4.89 X10*6/uL (4.20-5.50); Red Cell Distribution Width 13.6 % (11.0-16.0); White Blood Count 7.9 X10*3/uL (4.8-10.8)
[2024-03-19 13:34] LABS: Estimated Average Glucose 114 mg/dL; Hemoglobin A1C 137.4703 umol/L; Hemoglobin A1c % 5.6 % (<6.0); Total Hemoglobin (HGBA1C) 3618.6429 umol/L
[2024-03-19 14:01] LABS: Creatinine Urine 23.13 mg/dL; Microalbumin Urine < 5.0 mg/L
[2024-03-19 14:19] LABS: Alanine Aminotransferase 33 U/L (0-31); Albumin Level 4.1 g/dL (3.5-5.0); Alkaline Phosphatase 49 U/L (39-117); Anion Gap 11 (12-20); Aspartate Amino Transferase 25 U/L (5-31); Bilirubin Direct 0.1 mg/dL (0.0-0.5); Bilirubin Total 0.4 mg/dL (0.0-1.0); Blood Urea Nitrogen 12 mg/dL (9-16); Calcium 9.2 mg/dL (8.4-10.2); Carbon Dioxide 26 mmol/L (22-29); Chloride 108 mmol/L (96-108); Cholesterol 147 mg/dL (<200); Estimated Glomerular Filt Rate > 60; Free T4 (Free Thyroxine) 0.98 ng/dL (0.71-1.85); Glucose Random 91 mg/dL (60-115); HDL Cholesterol 42 mg/dL (>40); LDL Cholesterol Calculated 74 mg/dL (<100); Potassium 3.7 mmol/L (3.3-5.1); Sodium 141 mmol/L (135-145); Thyroid Stimulating Hormone 1.19 uIU/mL (0.32-4.0); Total Protein 6.9 g/dL (6.5-8.0); Triglycerides 156 mg/dL (<150); Vitamin D 25-OH Total 31.2 ng/mL (>30)
[2024-03-19 16:16] LABS: CT PCR NOT DETECTED (Not Detect.); NG PCR NOT DETECTED (Not Detect.)
[2024-03-20 07:00] LABS: HBS Num1 1.74 mIU/mL (0-7.99); HBsAGNum1 0.35 S/CO (0.00-0.99); HIV AB/AG Nonreactive (Nonreactive); HIV Num 1 0.05 S/CO (0.00-0.99); Hepatitis B Surface Antigen Negative (Negative); ~HepC Num1 0.07 S/CO (0.00-0.79); ~Hepatitis B Surface Antibody NONREACTIVE (Nonreactive); ~Hepatitis C Antibody Nonreactive (Nonreactive)
[2024-03-21 11:28] LABS: RPR Rapid Plasma Reagin NON-REACTIVE (NON-REACTIVE)
== END 2024-03-19 10:44 | disposition home or self-care (01) ==
LOC: HO.HHCL 10:43
PROVIDERS: Visit Provider Family Medicine
DX: Z00.00 Encounter for general adult medical examination without abnormal findings (principal); I10 Essential (primary) hypertension; E78.49 Other hyperlipidemia; F17.200 Nicotine dependence, unspecified, uncomplicated; G47.33 Obstructive sleep apnea (adult) (pediatric); J45.30 Mild persistent asthma, uncomplicated; M54.42 Lumbago with sciatica, left side; M54.41 Lumbago with sciatica, right side; G89.29 Other chronic pain; M79.674 Pain in right toe(s); M79.675 Pain in left toe(s); M25.521 Pain in right elbow; L91.8 Other hypertrophic disorders of the skin; Z01.84 Encounter for antibody response examination
CPT/HCPCS: 36415; 80048; 80061; 80076; 82043; 82306; 82570; 83036; 84439; 84443; 85027; 86592; 86706; 86803; 87340; 87389; 87491; 87591

== ENCOUNTER 2024-03-19 11:10 | Outpatient (REF) | payer MEDICAID, SELFPAY | END 2024-03-19 11:11 | disposition home or self-care (01) | LOC: HO.HHCL 11:10 | PROVIDERS: Visit Provider Family Medicine | DX: Z13.89 Encounter for screening for other disorder (principal) ==

== ENCOUNTER 2024-04-12 12:20 | Outpatient (REF) | payer MEDICAID, SELFPAY ==
--- NOTE | 2024-04-12 12:26 | EMG_ITS ---
Chief complaint: Back pain with numbness in the feet, especially right side Reason for referral: Evaluate for radiculopathy versus neuropathy Referred by: Dr. Alfredo Procedure done: Bilateral lower extremity NCS/EMG Precautions and/or limitations: None [place] speaking, seen with activity therapist. The limb temperature was monitored continuously and remained between 32-36 degrees C during the performance of the NCS. Nerve Conduction Studies Anti Sensory Summary Table ?Stim Site NR Onset (ms) Norm Onset (ms) Peak (ms) Norm Peak (ms) O-P Amp (?V) Norm O-P Amp Site1 Site2 Delta-0 (ms) Dist (cm) Vaughn (m/s) Norm Vaughn (m/s) Left Sural Anti Sensory (Lat Mall) Calf ? 2.4 3.1 <4.0 12.6 >5.0 Calf Lat Mall 2.4 14.0 58 Right Sural Anti Sensory (Lat Mall) Calf ? 2.6 3.3 <4.0 13.0 >5.0 Calf Lat Mall 2.6 14.0 54 Motor Summary Table ?Stim Site NR Onset (ms) Norm Onset (ms) O-P Amp (mV) Norm O-P Amp iAmp (mV) Amp (1st) (%) Site1 Site2 Delta-0 (ms) Dist (cm) Vaughn (m/s) Norm Vaughn (m/s) Right Peroneal Motor (Ext Dig Brev) Ankle ? 3.9 <4.0 8.2 >2.5 10.0 100.0 Ankle Ext Dig Brev 3.9 0.0 B Fib ? 10.2 7.2 8.6 87.8 B Fib Ankle 6.3 31.5 50 >40 Poplt ? 11.6 7.0 8.4 85.4 Poplt B Fib 1.4 5.0 36 >40 Left Tibial Motor (Abd Pablo Brev) Ankle ? 3.6 <5 12.1 >2.5 17.5 100.0 Ankle Abd Pablo Brev 3.6 0.0 Knee ? 11.6 8.9 13.4 73.6 Knee Ankle 8.0 38.0 48 >40 Right Tibial Motor (Abd Pablo Brev) Ankle ? 3.0 <5 13.9 >2.5 18.5 100.0 Ankle Abd Pablo Brev 3.0 0.0 Knee ? 11.3 8.6 11.6 61.9 Knee Ankle 8.3 38.0 46 >40 EMG ?Side Muscle Nerve Root Ins Act Fibs Psw Amp Dur Poly Recrt Int Pat Comment Right AbdHallucis MedPlantar S1-2 Nml Nml Nml Nml Nml 0 Nml Complete Right AntTibialis Dp Br Peron L4-5 Nml Nml Nml Nml Nml 0 Nml Complete Right PostTibialis Tibial L5, S1 Nml Nml Nml Nml Nml 0 Nml Complete Right MedGastroc Tibial S1-2 Nml Nml Nml Nml Nml 0 Nml Complete Right VastusMed Femoral L2-4 Nml Nml Nml Nml Nml 0 Nml Complete Left AbdHallucis MedPlantar S1-2 Nml Nml Nml Nml Nml 0 Nml Complete Left AntTibialis Dp Br Peron L4-5 Nml Nml Nml Nml Nml 0 Nml Complete Left PostTibialis Tibial L5, S1 Nml Nml Nml Nml Nml 0 Nml Complete Left MedGastroc Tibial S1-2 Nml Nml Nml Nml Nml 0 Nml Complete Left VastusMed Femoral L2-4 Nml Nml Nml Nml Nml 0 Nml Complete FINDINGS: Right peroneal nerve shows normal distal latency, normal amplitudes but slow conduction velocity across the fibular neck. Rest of nerves tested within normal. Concentric needle EMG was performed in selected muscles of the bilateral lower extremity. Study did not reveal signs of electric abnormalities as shown in the table above. IMPRESSION: 1. This is a abnormal study. 2. 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 3. There is no electrodiagnostic evidence for tibial neuropathy, lumbosacral plexopathy, lumbar radiculopathy, or peripheral neuropathy. Thank you for your kind referral. Kathryn Al MD, YUDI Board Certified, [employer] (ABPMR) Board Certified, [employer] Electro[employer] (ABEM) CODIN [id number] x 2 MTDD
--- OUTSIDE RECORDS SUMMARY | 2024-04-12 12:47 | XMS_ITS | Encounter Summary ---
Author Organization [facility] Address [address] [place] [address] [address] [place] [address] Care Team Providers Care Children'S Service Worker Name Role Phone Beth Alfredo DO Primary Care Provider Reason for Referral * Imaging (Routine) - Authorized Specialty Diagnoses / Procedures Referred By Alexx t Referred To Contact Radiology Diagnoses Encounter for screening mammogram for malignant neoplasm of breast Procedures BI Mammogram Screening Tomosynthesis Bilateral Beth Alfredo DO [address] [place] [address] Phone: tel: fax: [address] Phone: tel: fax: Referral ID Status Reason Start Date Expiration Date V isits Requested Visits Authorized [id number] Authorized 03/19/2024 03/19/2025 1 1 * Consultation (Routine) - Authorized Specialty Diagnoses / Procedures Referred By Contisaac t Referred To Contact Family Medicine Diagnoses Multiple acquired skin tags Beth Alfredo DO [address] [place] [address] Phone: tel: fax: Referral ID Status Reason Start Date Expiration Date Visits Requested Visits Authorized [id number] Authorized Specialty Services Required 03/19/2024 03/19/2025 1 1 * Neurology (Routine) - Authorized Specialty Diagnoses / Procedures Referred By Contac t Referred To Contact Diagnoses Pain in toes of both feet Procedures Nerve conduction test Beth Alfredo DO [address] [place] [address] Phone: tel: fax: [address] Phone: tel: fax: Referral ID Status Reason Start Date Expiration Date V isits Requested Visits Authorized [id number] Authorized 03/19/2024 03/19/2025 1 1 * Neurology (Routine) - Authorized Specialty Diagnoses / Procedures Referred By Contac t Referred To Contact Diagnoses Pain in toes of both feet Procedures EMG Beth Alfredo DO [address] [place] [address] Phone: tel: fax: [address] Phone: tel: fax: Referral ID Status Reason Start Date Expiration Date V isits Requested Visits Authorized [id number] Authorized 03/19/2024 03/19/2025 1 1 Encounter Details Date Type Department Care Team (Latest Contact Info) Description 03/19/2024 10:00 AM EST Office Visit [facility] [address] [place] [address] Beth Alfredo DO [address] [place] [address] Essential hypertension (Primary Dx); Other hyperlipidemia; Tobacco dependence; Obstructive sleep apnea; Mild persistent asthma without complication; Chronic bilateral low back pain with bilateral sciatica; Chronic gastroesophageal reflux disease; Chronic constipation; Pain in toes of both feet; Right elbow pain; Multiple acquired skin tags; Healthcare maintenance; Encounter for immunization; Neck pain; Chronic low back pain, unspecified back pain laterality, unspecified whether sciatica present; Encounter for screening mammogram for malignant neoplasm of breast Social History Tobacco Use Types Packs/Day Years Used Date Smoking Tobacco: Every Day Cigarettes 1 30 Smokeless Tobacco: Never Depression Answer Date Recorded Patient Health Questionnaire-9 Score 0 05/31/2022 Housing Stability Answer Date Recorded What is your housing situation today? I have kerry wheeler 03/12/[address] you li ve. Do you have problems with any of the following? None of the above 03/12/2024 Food Insecurity Answer Date Recorded Within the past 12 months, y ou worried that your food would run out before you got money to buy more: Never True 03/12/2024 Within the past 12 months,th e food you bought just didn't last and you didn't have enough money to get more: Never True Transportation Answer Date Recorded In the past 12 months, has l ack of transportation kept you from medical appts, meetings, work or from getting things needed for daily living? No 03/12/2024 Utilities Answer Date Recorded In the past 12 months, has t he electric, gas, oil or water company threatened to shut off services in your home? No 03/12/2024 Depression Answer Date Recorded Patient Health Questionnaire-2 Score 0 05/31/2022 Internet Access Answer Date Recorded Internet Access Q1 Yes 03/12/2024 Internet Access Q2 Not on file 03/12/2024 Comments Unknown Sex and Gender Information Value Date Recorded Sex Assigned at Female 01/10/2022 10:21 AM EDT Legal Sex Female 10:21 AM EDT Gender Identity Female 01/10/2022 10:21 AM EDT Sexual Orientation Straight 01/10/2022 10 :21 AM EDT documented as of this encounter Last Filed Vital Signs Vital Sign Reading Time Taken Comments Blood Pressure 134/86 03/19/2024 1:44 PM EST Pulse 88 03/19/2024 9:51 AM EST Temperature 36.3 ??C (97.4 ??F) 03/19/2024 9:51 AM ES T Respiratory Rate 20 03/19/2024 9:51 AM EST Oxygen Saturation - - Inhaled Oxygen Concentration - - Weight 91.7 kg (202 lb 2 oz) 03/19/2024 9:51 AM EST Height 165.1 cm (5' 5 ) 03/19/2024 9:51 AM EST Body Mass Index 33.64 03/19/2024 9:51 AM EST documented in this encounter Plan of Treatment Scheduled Orders Name Type Priority Associated Diagnoses Orde r Schedule XR Elbow 1-2 Views Right Imaging Routine Right elbow pain Expected: 03/19/2024, Expires: 03/19/2025 XR Foot 3+ Views Right Imaging Routine Pain in toes of both feet Expected: 03/19/2024, Expires: 03/19/2025 XR Foot 3+ Views Left Imaging Routine Pain in toes of both feet Expected: 03/19/2024, Expires: 03/19/2025 EMG Neurology Routine Pain in toes of both feet Expected: 03/19/2024 (Approximate), Expires: 03/19/2025 Nerve conduction test Neurology Routine Pain in toes of both feet Expected: 03/19/2024 (Approximate), Expires: 03/19/2025 BI Mammogram Screening Tomosynthesis Bilateral Imaging Routine Encounter for screening mammogram for malignant neoplasm of breast Expected: 03/19/2024, Expires: 05/17/2025 Scheduled Referrals Name Type Priority Associated Diagnoses Orde r Schedule Referral to [facility] Derm Skin Adult Outpatient Referral Routine Multiple acquired skin tags Expected: 03/19/2024 (Approximate), Expires: 03/19/2025 documented as of this encounter Procedures Procedure Name Priority Date/Time Associated Diagnosis Comments VITAMIN D,25-OH,TOTAL,IA Routine 03/19/2024 10:50 AM EST Essential hypertension Other hyperlipidemia Tobacco dependence Obstructive sleep apnea Mild persistent asthma without complication Chronic bilateral low back pain with bilateral sciatica Pain in toes of both feet Right elbow pain Multiple acquired skin tags Healthcare maintenance Encounter for immunization ALBUMIN, RANDOM URINE W/CREATININE Routine 03/19/2024 10:50 AM EST Essential hypertension Other hyperlipidemia Tobacco dependence Obstructive sleep apnea Mild persistent asthma without complication Chronic bilateral low back pain with bilateral sciatica Pain in toes of both feet Right elbow pain Multiple acquired skin tags Healthcare maintenance Encounter for immunization HEPATITIS C AB W/REFL TO HCV RNA, QN, PCR Routine 03/19/2024 10:50 AM EST Essential hypertension Other hyperlipidemia Tobacco dependence Obstructive sleep apnea Mild persistent asthma without complication Chronic bilateral low back pain with bilateral sciatica Pain in toes of both feet Right elbow pain Multiple acquired skin tags Healthcare maintenance Encounter for immunization CHLAMYDIA/N. GONORRHOEAE RNA, TMA, UROGENITAL Routine 03/19/2024 10:50 AM EST Essential hypertension Other hyperlipidemia Tobacco dependence Obstructive sleep apnea Mild persistent asthma without complication Chronic bilateral low back pain with bilateral sciatica Pain in toes of both feet Right elbow pain Multiple acquired skin tags Healthcare maintenance Encounter for immunization HEPATITIS B SURFACE ANTIGEN, EIA Routine 03/19/2024 10:50 AM EST Essential hypertension Other hyperlipidemia Tobacco dependence Obstructive sleep apnea Mild persistent asthma without complication Chronic bilateral low back pain with bilateral sciatica Pain in toes of both feet Right elbow pain Multiple acquired skin tags Healthcare maintenance Encounter for immunization RPR (MONITOR) W/REFL TITER Routine 03/19/2024 10:50 AM EST Essential hypertension Other hyperlipidemia Tobacco dependence Obstructive sleep apnea Mild persistent asthma without complication Chronic bilateral low back pain with bilateral sciatica Pain in toes of both feet Right elbow pain Multiple acquired skin tags Healthcare maintenance Encounter for immunization HIV 1/2 ANTIGEN/ANTIBODY, FOURTH GENERATION W/RFL Routine 03/19/2024 10:50 AM EST Essential hypertension Other hyperlipidemia Tobacco dependence Obstructive sleep apnea Mild persistent asthma without complication Chronic bilateral low back pain with bilateral sciatica Pain in toes of both feet Right elbow pain Multiple acquired skin tags Healthcare maintenance Encounter for immunization HEPATITIS B SURFACE ANTIBODY, QUALITATIVE Routine 03/19/2024 10:50 AM EST Essential hypertension Other hyperlipidemia Tobacco dependence Obstructive sleep apnea Mild persistent asthma without complication Chronic bilateral low back pain with bilateral sciatica Pain in toes of both feet Right elbow pain Multiple acquired skin tags Healthcare maintenance Encounter for immunization CBC Routine 03/19/2024 10:50 AM EST Essential hypertension Other hyperlipidemia Tobacco dependence Obstructive sleep apnea Mild persistent asthma without complication Chronic bilateral low back pain with bilateral sciatica Pain in toes of both feet Right elbow pain Multiple acquired skin tags Healthcare maintenance Encounter for immunization TSH Routine 03/19/2024 10:50 AM EST Essential hypertension Other hyperlipidemia Tobacco dependence Obstructive sleep apnea Mild persistent asthma without complication Chronic bilateral low back pain with bilateral sciatica Pain in toes of both feet Right elbow pain Multiple acquired skin tags Healthcare maintenance Encounter for immunization T4, FREE Routine 03/19/2024 10:50 AM EST Essential hypertension Other hyperlipidemia Tobacco dependence Obstructive sleep apnea Mild persistent asthma without complication Chronic bilateral low back pain with bilateral sciatica Pain in toes of both feet Right elbow pain Multiple acquired skin tags Healthcare maintenance Encounter for immunization HEMOGLOBIN A1C Routine 03/19/2024 10:50 AM EST Essential hypertension Other hyperlipidemia Tobacco dependence Obstructive sleep apnea Mild persistent asthma without complication Chronic bilateral low back pain with bilateral sciatica Pain in toes of both feet Right elbow pain Multiple acquired skin tags Healthcare maintenance Encounter for immunization HEPATIC FUNCTION PANEL Routine 03/19/2024 10:50 AM EST Essential hypertension Other hyperlipidemia Tobacco dependence Obstructive sleep apnea Mild persistent asthma without complication Chronic bilateral low back pain with bilateral sciatica Pain in toes of both feet Right elbow pain Multiple acquired skin tags Healthcare maintenance Encounter for immunization LIPID PANEL, STANDARD Routine 03/19/2024 10:50 AM EST Essential hypertension Other hyperlipidemia Tobacco dependence Obstructive sleep apnea Mild persistent asthma without complication Chronic bilateral low back pain with bilateral sciatica Pain in toes of both feet Right elbow pain Multiple acquired skin tags Healthcare maintenance Encounter for immunization BASIC METABOLIC PANEL Routine 03/19/2024 10:50 AM EST Essential hypertension Other hyperlipidemia Tobacco dependence Obstructive sleep apnea Mild persistent asthma without complication Chronic bilateral low back pain with bilateral sciatica Pain in toes of both feet Right elbow pain Multiple acquired skin tags Healthcare maintenance Encounter for immunization documented in this encounter Results * Hepatitis B Surface Antibody, Qualitative (03/19/2024 10:50 AM EST) ~Hepatitis B Surface Antibody NONREACTIVE Nonreactive [facility] Comment:Nonreactive: < 8.00 mIU/mL Blood Venous blood specimen / Unknown 03/19/2024 10:50 AM EST 03/19/2024 1:00 PM EST Beth Torresjess DO LAB BLOOD ORDERABLES Final R esult Performing Organization Address [facility]/ZIP Co de Phone Number [facility] [address] [place] [phone] * RPR (Monitor) with Reflex to??Titer (03/19/2024 10:50 AM EST) RPR (Monitor) w/Refl Titer NON-REACTI VE NON-REACT NOEL [facility] Comment:THIS TEST WAS PERFOR MED AT:[facility] [place] [phone] SNELL MD Rapid Plasma Reagin Ab Titer TNP [facility] Blood Venous blood specimen / Unknown 03/19/2024 10:50 AM EST 03/19/2024 1:00 PM EST Beth Juni DO LAB BLOOD ORDERABLES Final R esult Performing Organization Address [facility] Co de Phone Number [facility] [address] [place] [phone] * Hepatitis C Antibody with Reflex to HCV, RNA, Quantitative, Real-Time PCR (03/19/2024 10:50 AM EST) Hepatitis C Antibody Nonreactive Nonreactive [facility] Comment:Antibodies to HCV no t detected; does not exclude early acuteHCV infection. Blood Venous blood specimen / Unknown 03/19/2024 10:50 AM EST 03/19/2024 1:00 PM EST Beth Torresjess DO LAB BLOOD ORDERABLES Final R esult Performing Organization Address [facility] Co de Phone Number [facility] [address] [place] [phone] * HIV-1/2 Antigen and Antibodies, Fourth Generation, with Reflexes (03/19/2024 10:50 AM EST) Pathologist [facility] HIV AB/AG Nonreactive Nonreactive [facility] Comment:HIV-1 p24 Ag and/or HIV-1/HIV-2 Ab not detected.A test result that is nonreactive does not exclude thepossibility of exposure to or infection with HIV-1 and/orHIV-2. Nonreactive results in this assay for individualswith prior exposure to HIV-1 and/or HIV-2 may be due toantigen and antibody levels that are below the limit ofdetection of this assay.The [employer] HIV Ag/Ab Combo assay result andsupplemental assay results should be interpreted inconjunction with the patient's clinical presentation,history and other laboratory results. If the results areinconsistent with clinical evidence, additional testing issuggested to confirm the result. Blood Venous blood specimen / Unknown 03/19/2024 10:50 AM EST 03/19/2024 1:00 PM EST Beth Alfredo DO LAB BLOOD ORDERABLES Final R esult [facility] [address] [place] [phone] * Chlamydia/N. Gonorrhoeae RNA, TMA, Urogenitial (03/19/2024 10:50 AM EST) [facility] CT PCR NOT DETECTED Not Detect. [facility] Comment:A not detected test result does not exclude the possibilityof infection because test results can be affected byimproper specimen collection, concurrent antibiotic therapy,or the number of organisms in the specimen which may bebelow the sensitivity of the test. As with many diagnostictests, results from the Xpert CT/NG assay should beinterpreted in conjunction with other laboratory andclinical data available to the clinician.Xpert CT/NG performance has not been evaluated in patientsless than 14 years of age. The assay should not be used forthe evaluationof suspected sexual abuse or for other medico-legalindications. Additional testing is recommended in anycircumstance when false positive or false negative resultscould lead to adverse medical, social or psychologicalconsequences. NG PCR NOT DETECTED Not Detect. [facility] Comment:A not detected test result does not exclude the possibilityof infection because test results can be affected byimproper specimen collection, concurrent antibiotic therapy,or the number of organisms in the specimen which may bebelow the sensitivity of the test. As with many diagnostictests, results from the Xpert CT/NG assay should beinterpreted in conjunction with other laboratory andclinical data available to the clinician.Xpert CT/NG performance has not been evaluated in patientsless than 14 years of age. The assay should not be used forthe evaluationof suspected sexual abuse or for other medico-legalindications. Additional testing is recommended in anycircumstance when false positive or false negative resultscould lead to adverse medical, social or psychologicalconsequences. Urine Urethral structure / Unknown 03/19/2024 10:50 AM EST 03/19/2024 1:11 PM EST Narrative [facility] - 03/19/2024 4:16 PM EST Urine us Beth Alfredo DO LAB MICROBIOLOGY - GENERAL O RDERABLES Final Result Performing Organization Address [facility]/ZIP Co de Phone Number [facility] [address] [place] [phone] * Hepatitis B surface antigen, EIA (03/19/2024 10:50 AM EST) Hepatitis B Surface Ag Negative Negative [facility] Blood Venous blood specimen / Unknown 03/19/2024 10:50 AM EST 03/19/2024 1:00 PM EST us Beth Alfredo DO LAB BLOOD ORDERABLES Final R esult Performing Organization Address [facility] Co de Phone Number [facility] [address] [place] [phone] * Albumin, Random Urine W/Creatinine (03/19/2024 10:50 AM EST) Creatinine, Urine 23.13 mg/dL [facility] Microalbumin Urine <5.0 mg/L [facility] Microalbum Creatinine Ratio Ur TNP <30 ug/mg cr [facility] Comment:Unable to calculate albumin/creatinine ratio due to lowmicroalbumin or creatinine result. Urine (Urine, Random) 03/19/2024 10:50 AM EST 03/19/2024 1:11 PM EST us Beth Alfredo DO LAB URINE ORDERABLES Final R esult [facility] [address] [place] [address] [phone] * CBC (03/19/2024 10:50 AM EST) White Blood Count 7.9 4.8 - 10.8 X10*3/uL [facility] Red Blood Count 4.89 4.20 - 5.50 X10*6/uL [facility] Hemoglobin 13.8 12.0 - 16.0 g/dl [facility] Hematocrit 42.7 37.0 - 47.0 % [facility] Mean Corpuscular Volume 87.3 80.0 - 98.0 fL [facility] Mean Corpuscular Hemoglobin 28.2 27.0 - 33.0 pg [facility] Mean Corpuscular HGB Conc 32.3 31.0 - 35.0 g/dl [facility] Red Cell Distribution Width 13.6 11.0 - 16.0 % [facility] Platelet Count 228 160 - 400 X10*3/uL [facility] Mean Platelet Volume 11.4 9.4 - 12.3 fL [facility] NRBC Pct Auto 0.0 0.0 - 0.2 /100WBC [facility] NRBC Abs Auto 0.000 0.0 - 0.012 X10*3/uL [facility] Blood Venous blood specimen / Unknown 03/19/2024 10:50 AM EST 03/19/2024 1:00 PM EST Beth Alfredo DO LAB BLOOD ORDERABLES Final R esult Performing Organization Address [facility] Co de Phone Number [facility] [address] [place] [address] [phone] * (ABNORMAL) Basic Metabolic Panel (03/19/2024 10:50 AM EST) Sodium 141 135 - 145 mmol/L [facility] Potassium 3.7 3.3 - 5.1 mmol/L [facility] Chloride 108 96 - 108 mmol/L [facility] Carbon Dioxide 26 22 - 29 mmol/L [facility] Anion Gap 11(L) 12 - 20 [facility] Urea Nitrogen (BUN) 12 9 - 16 mg/dL [facility] Creatinine, Serum 0.69 0.5 - 1.4 mg/dL [facility] Estimated Glomerular Filt Rate >60 [facility] Comment:Chronic Kidney Disea se: Estimated GFR < 60 mL/min/1.94a0Iproud Kidney Disease: Estimated GFR < 15 mL/min/1.73m2 Glucose 91 60 - 115 mg/dL [facility] Calcium 9.2 8.4 - 10.2 mg/dL [facility] Blood Venous blood specimen / Unknown 03/19/2024 10:50 AM EST 03/19/2024 1:00 PM EST us Beth Alfredo DO LAB BLOOD ORDERABLES Final R esult Performing Organization Address City/[facility]/ZIP Co de Phone Number [facility] [address] [place] [phone] [phone] * Hemoglobin A1c (03/19/2024 10:50 AM EST) Hemoglobin A1c 5.6 <6.0 % [facility] Comment:Hemoglobin A1C Refer ence Range Adults: 4.8 - 6.0 % Non diabetic: < 6.0 % Goal: < 7.0 %Additional Action Suggested: > 8.0 %Note: Hemoglobin A1c results are invalid for patients with abnormal amounts of HbF. Blood transfusions may impact the HbA1c concentration in the patient sample. Estimated Average Glucose 114 mg/dL [facility] Comment:eAG = Estimated ave rage glucose which is %A1C expressed asaverage glucose, using the formula of the [id number] Glucose study (ADAG), Diabetes Care, Vol.31,#8,2007 Blood Venous blood specimen / Unknown 03/19/2024 10:50 AM EST 03/19/2024 1:00 PM EST Beth Alfredo DO LAB BLOOD ORDERABLES Final R esult Performing Organization Address City/[facility]/ZIP Co de Phone Number [facility] [address] [place] [phone] * (ABNORMAL) Hepatic Function Panel (03/19/2024 10:50 AM EST) Bilirubin, Total 0.4 0.0 - 1.0 mg/dL [facility] Bilirubin, Direct 0.1 0.0 - 0.5 mg/dL [facility] Aspartate Amino Transferase 25 5 - 31 U/L [facility] Alanine Aminotransferase 33(H) 0 - 31 U/L [facility] Total Protein 6.9 6.5 - 8.0 g/dL [facility] Albumin Level 4.1 3.5 - 5.0 g/dL [facility] Alkaline Phosphatase 49 39 - 117 U/L [facility] Blood Venous blood specimen / Unknown 03/19/2024 10:50 AM EST 03/19/2024 1:00 PM EST Beth Alfredo DO LAB BLOOD ORDERABLES Final R esult Performing Organization Address [facility] Co de Phone Number [facility] [address] [place] [phone] * TSH (03/19/2024 10:50 AM EST) Thyroid Stimulating Hormone 1.19 0.32 - 4.0 uIU/mL [facility] Comment:TSH 3rd Generation ( [facility]) Blood Venous blood specimen / Unknown 03/19/2024 10:50 AM EST 03/19/2024 1:00 PM EST Beth Alfredo DO LAB BLOOD ORDERABLES Final R esult Performing Organization Address [facility] Co de Phone Number [facility] [address] [place] [phone] * (ABNORMAL) Lipid Panel, Standard (03/19/2024 10:50 AM EST) Triglycerides 156(H) <150 mg/dL [facility] Comment:Desirable Triglyceri de: less than 150 mg/dLBorderline High Triglyceride 150-199 mg/dLHigh Triglyceride: 200-499 mg/dLVery High Triglyceride: greater than or equal to 5OO mg/dL Cholesterol 147 <200 mg/dL [facility] Comment:Desirable Cholestero l: less than 200 mg/dLBorderline High Cholesterol: 200-239 mg/dLHigh Cholesterol: greater than 239 mg/dL LDL Cholesterol Calculated 74 <100 mg/dL [facility] Comment:Desirable LDL: less than 100 mg/dLNear Optimal/Above Optimal LDL: 110- 129 mg/dLBorderline High LDL: 130-159 mg/dLHigh LDL: 160-189 mg/dLVery High LDL: greater than or equal to 190 mg/dL HDL Cholesterol 42 >40 mg/dL [facility] Comment:Desirable HDL: great er than 40 mg/dL Note: This HDL assay may give artificially low results in patients with liver disease. Blood Venous blood specimen / Unknown 03/19/2024 10:50 AM EST 03/19/2024 1:00 PM EST Beth Alfredo DO LAB BLOOD ORDERABLES Final R esult Performing Organization Address [facility]/ZIP Co de Phone Number [facility] [address] [place] [address] [phone] * Vitamin D, 25-Hydroxy, Total, Immunoassay (03/19/2024 10:50 AM EST) Vitamin D 25-OH Total 31.2 >30 ng/mL [facility] Comment:Health Based Referen ce Values*< 20 ng/mL [id number] ng/mL Insufficient> 30 ng/mL Sufficient*Myla LE. N Engl J Med. 2007;357:266-280Care must be taken in interpreting Vitamin D results fromdifferent laboratories and methodologies. Published datademonstrated that results from patients undergoinghemodialysis may show a negative bias when tested withvarious automated 25-OH vitamin D assays when compared toLC-MS/MS.When testing samples from patients whose predominant form ofVitamin D is Vitamin D2, such as patients receiving VitaminD2 supplementation, results that are subtherapeutic shouldbe confirmed with another method such as LC-MS/MS. Blood Venous blood specimen / Unknown 03/19/2024 10:50 AM EST 03/19/2024 1:00 PM EST Beth Alfredo DO LAB BLOOD ORDERABLES Final R esult [facility] [address] [place] [address] [phone] * T4, Free (03/19/2024 10:50 AM EST) Free T4 (Free Thyroxine) 0.98 0.71 - 1.85 ng/dL [facility] Blood Venous blood specimen / Unknown 03/19/2024 10:50 AM EST 03/19/2024 1:00 PM EST Beth Alfredo DO LAB BLOOD ORDERABLES Final R esult [facility] [address] [place] [address] [phone] documented in this encounter Visit Diagnoses Diagnosis Essential hypertension- Primary Unspecified essential hypertension Other hyperlipidemia Tobacco dependence Tobacco use disorder Obstructive sleep apnea Obstructive sleep apnea (adult) (pediatric) Mild persistent asthma without complication Chronic low back pain, unspecified back pain laterality, unspecified whether sciatica present Chronic gastroesophageal reflux disease Chronic constipation Unspecified constipation Pain in toes of both feet Right elbow pain Pain in joint, upper arm Multiple acquired skin tags Healthcare maintenance Encounter for immunization Neck pain Cervicalgia Encounter for screening mammogram for malignant neoplasm of breast documented in this encounter Additional Health Concerns Assessment Noted Time PHQ-9 Depression Total Score: 0 06/01/19 23 10:02 AM EDT documented as of this encounter Care Teams Children'S Service Worker Relationship Specialty Start Date End Date Beth Alfredo DO [address] [place] [address] PCP - General Family Medicine 11/25/14 documented as of this encounter
--- OUTSIDE RECORDS SUMMARY | 2024-04-12 12:47 | XMS_ITS | Encounter Summary ---
Author Organization [employer] Address [address] [place] [address] Care Team Providers Care Separator Inserter Name Role Phone Beth Alfredo DO Primary Care Provider Encounter Details Date Type Department Care Team ([facility] st Contact Info) Description 04/04/[address] [facility] [address] [place] [address] Beth Mckinnon LPN Social History Tobacco Use Types Packs/Day Years Used Date Smoking Tobacco: Never Assessed Comments Unknown Sex and Gender Information Value Date Recorded Sex Assigned at Female 01/10/2022 10:21 AM EDT Legal Sex Female 10:21 AM EDT Gender Identity Female 01/10/2022 10:21 AM EDT Sexual Orientation Straight 01/10/2022 10 :21 AM EDT documented as of this encounter Plan of Treatment Not on file documented as of this encounter Procedures Procedure Name Priority Date/Time Associated Diagnosis Comments BI MAMMOGRAM SCREENING TOMOSYNTHESIS BILATERAL Routine 04/29/2022 9:15 AM EST documented in this encounter Results * BI Mammogram Screening Tomosynthesis Bilateral (04/29/2022 9:15 AM EST) Anatomical Region Laterality Modality Breast Bilateral Mammography 04/29/2022 9:15 AM EST Narrative 05/02/2022 12:54 PM EST ? [facility] ? [address] ?[place] [address] ? Mammography Report ? Signed ? Patient: Troy Roni,Natalie E ?M ?? R#: [id number] ? : 1965 ?Acct:[id number] ? Age/Sex: 57 / F ?ADM Date: 02/17/23 ? Loc: HO.MAMMO ? Attending Dr: Beth Alfredo DO ? Ordering Physician: Beth Alfredo DO ?Results: 1N ?? egative ? Date of Service: 04/29/22 ?Follow Up: 1 Year From Orig ?? inal Mammogram ? Procedure(s): MM tomosynthesis screening BI ?? Accession Number(s): [id number] ? cc: Beth Alfredo DO ? EXAMINATION: ?? MM SCREENING DIGITAL BREAST TOMOSYNTHESIS, BILATERAL ? CLINICAL INFORMATION: ? Screening. Asymptomatic. ? The lifetime risk of breast cancer based on the Tyrer-Cuzick Model is ?? 5%. ? COMPARISON: ?? Mammography: 04/23/2021, 03/03/2020, 10/11/2019, 03/12/2019, ?? 03/04/2019, 02/26/2019 ? TECHNIQUE: ?? Digital breast tomosynthesis is performed in both the craniocaudal and ?? mediolateral oblique views along with computer-aided detection (CAD). ?? Synthesized 2D images are generated from the tomosynthesis. ? FINDINGS: ?? There are scattered areas of fibroglandular density (ACR BI-RADS breast ?? composition Category b). ? There are no significant masses, abnormal calcifications, or other ?? abnormalities. ??Parenchymal pattern is similar to prior studies. There ?? is no developing density or architectural abnormality. Biopsy clip ?? marker again noted central mid 3:00 right breast. The axilla and skin ?? contours are unremarkable. No significant changes. ? MM/MM tomosynthesis screening BI ?? IMPRESSION: ?? No mammographic evidence of malignancy. ? ASSESSMENT: ? BI-RADS 1: Negative ? RECOMMENDATION: ?? Routine annual mammography screening. ? This patient's information was entered into a reminder system with a ?? target due date for their next mammogram. ? Dictated By: ?Rufino Keene MD ? Signed By: ?<Electronically signed by Rufino Keene MD in [place]> ?05/02/22 1251 ? DD/ 0915 ? TD/TT: ? Deputy Court Clerk: ROMANO ? Procedure Note [place], Image - 05/02/2022 [facility] [address] [place], [place] [address] Mammography Report Signed Patient: Natalie Aranda EM R#: [id number] : 1965Acct:[id number] Age/Sex: 57 / FADM Date: 04/29/22 Loc: HO.MAMMO Attending Dr: Beth Alfredo DO Ordering Physician: Beth Alfredoults: 1N egative Date of Service: 04/29/22Follow Up: 1 Year From Orig inal Mammogram Procedure(s): MM tomosynthesis screening BI Accession Number(s): [id number] cc: Beth Alfredo DO EXAMINATION: MM SCREENING DIGITAL BREAST TOMOSYNTHESIS, BILATERAL CLINICAL INFORMATION: Screening. Asymptomatic. The lifetime risk of breast cancer based on the Tyrer-Cuzick Model is 5%. COMPARISON: Mammography: 04/23/2021, 03/03/2020, 10/11/2019, 03/12/2019, 03/04/2019, 02/26/2019 TECHNIQUE: Digital breast tomosynthesis is performed in both the craniocaudal and mediolateral oblique views along with computer-aided detection (CAD). Synthesized 2D images are generated from the tomosynthesis. FINDINGS: There are scattered areas of fibroglandular density (ACR BI-RADS breast composition Category b). There are no significant masses, abnormal calcifications, or other abnormalities. Parenchymal pattern is similar to prior studies. There is no developing density or architectural abnormality. Biopsy clip marker again noted central mid 3:00 right breast. The axilla and skin contours are unremarkable. No significant changes. MM/MM tomosynthesis screening BI IMPRESSION: No mammographic evidence of malignancy. ASSESSMENT: BI-RADS 1: Negative RECOMMENDATION: Routine annual mammography screening. This patient's information was entered into a reminder system with a target due date for their next mammogram. Dictated By: Rufino Keene MD Signed By: <Electronically signed by Rufino Keene MD in OV> 05/02/22 1251 DD/ 0915 TD/TT: Deputy Court Clerk: ROMANO [facility] External Provider IMG BI PROCEDURES Edited Result - Final documented in this encounter Visit Diagnoses Not on filedocumented in this encounter Care Teams Separator Inserter Relationship Specialty Start Date End Date Beth Alfredo DO [address] [place] [address] PCP - General Family Medicine 11/25/14 documented as of this encounter
--- OUTSIDE RECORDS SUMMARY | 2024-04-12 12:47 | XMS_ITS | Encounter Summary ---
Author Organization [employer] Address [address] [place] [address] Care Team Providers Care Trail Construction Worker Name Role Phone MelissaBeth mercado Primary Care Provider [phone] Encounter Details Date Type Department Care Team (Latest Contact Info) Description 03/19/2024 Travel Social History Tobacco Use Types Packs/Day Years [...] on file documented as of this encounter Visit Diagnoses Not on filedocumented in this encounter Additional Health Concerns Assessment Noted Time PHQ-9 Depression Total Score: 0 06/01/19 23 10:02 AM EDT documented as of this encounter Care Teams Trail Construction Worker Relationship Specialty Start Date End Date Beth Alfredo DO [address] [place] [address] PCP - General Family Medicine 11/25/14 documented as of this encounter
--- OUTSIDE RECORDS SUMMARY | 2024-04-12 12:47 | XMS_ITS | Clinical Summary ---
Author Organization [employer] Address [address] [facility] [address] [place] [address] Care Team Providers Care Sanitation Supervisor Name Role Phone Beth Alfredo Primary Care Provider [phone] Allergies No known active allergies Medications Misc. Devices (Pulse Oximeter For Finger) miscIndication s:COVID-19 To use every 4 hours. Call the office if O2 Sat falls below 90% 1 each 12/24/19 23 Active atorvastatin (Lipitor) 20 MG tablet TAKE 1 TABLET BY MOUTH EVERY DAY 90 tablet 3 11/17/19 24 Active omeprazole (PriLOSEC) [address] capsule Take 1 capsule (40 mg) by mouth before breakfast and before evening meal. Do not crush or chew. 180 capsule 3 03/19/19 25 026 Active loratadine (Claritin) 10 MG tablet TAKE 1 TABLET BY MOUTH EVERY DAY 90 tablet 3 03/19/19 25 Active hydroCHLOROthi azide (HYDRODiuril) 25 MG tablet TAKE 1 TABLET BY MOUTH ONCE A DAY 90 tablet 03/19/19 25 Active fluticasone (Flonase) 50 MCG/ACT nasal spray Administer 2 sprays into each nostril Once per day. Shake gently. Before first use, prime pump. After use, clean tip and replace cap. 48 mL 3 03/19/19 25 Active docusate sodium (Colace) 100 MG capsule Take 1 capsule (100 mg) by mouth 2 times daily. 180 capsule 3 03/19/19 25 026 Active acetaminophen (Tylenol 8 Hour) 650 MG ER tablet Take 1 tablet (650 mg) by mouth every 8 (eight) hours if needed for mild pain. Do not crush, chew, or split. 60 tablet 03/19/19 026 Active baclofen (Lioresal) 20 MG tablet TOME AYESHA TABLETA PRINCE VECES AL JUS PARA EL ESPASMO MUSCULAR CUANDO SEA NECESARIO OR PAIN 90 tablet 03/19/19 25 Active cholecalcifero l (Vitamin D-3) 50 MCG (2000 UT) capsule Take 1 capsule (50 mcg) by mouth Once per day. 90 capsule 03/19/19 25 Active Diclofenac Sodium 1 % gelIndications :Neck pain Apply 2 g topically if needed in the morning, at noon, in the evening, and at bedtime (pain). 150 g 03/19/19 25 Active polyethylene glycol, PEG, 3350 (MiraLax) 17 GM/SCOOP powder Take 17 g by mouth if needed each day (constipation ). 527 g 03/19/19 026 Active amitriptyline (Elavil) 10 MG tablet Take 1 tablet (10 mg) by mouth at bedtime. 30 tablet 03/19/19 025 Active traMADol (Ultram) 50 MG tabletIndicati ons:Chronic bilateral low back pain with bilateral sciatica Take 1 tablet (50 mg) by mouth every 6 (six) hours if needed for severe pain for up to 28 days. 112 tablet 03/19/19 025 Active polycarbophil (Fibercon) 625 MG tablet Take 1 tablet (625 mg) by mouth 2 times daily. 180 tablet 03/19/19 Active fluticasone furoate (Arnuity Ellipta) 100 MCG/ACT inhaler Inhale 1 puff Once per day. Rinse mouth with water after use to reduce aftertaste and incidence of candidiasis. Do not swallow. 3 each 03/19/19 Active albuterol 108 (90 Base) MCG/ACT inhaler Inhale 2 puffs every 4 (four) hours if needed for shortness of breath or wheezing. 18 g 03/19/19 25 026 Active Lidoderm 5 % patch Apply 2 patches topically if needed each day for mild pain. Remove & discard patch within 12 hours or as directed by MD. 60 patch 03/19/19 25 026 Active diclofenac (Voltaren) 50 MG EC tabletIndicati ons:Chronic low back pain, unspecified back pain laterality, unspecified whether sciatica present Take 1 tablet (50 mg) by mouth if needed in the morning and at bedtime (pain). Do not crush, chew, or split. 30 tablet 3 03/19/19 25 Active buPROPion SR (Wellbutrin SR) 150 MG 12 hr tabletIndicati ons:Tobacco dependence Take 1 tablet (150 mg) by mouth 2 times daily. With breakfast and dinner. Do not crush, chew, or split. 60 tablet 2 06/01/19 23 025 Discontinued cholecalcifero l (Vitamin D-3) 50 MCG (1999) capsule Take 1 capsule (50 mcg) by mouth in the morning. 90 capsule 3 06/16/19 025 Discontinued(Re order (will not trigger notification to Pharmacy)) diclofenac (Voltaren) 50 MG EC tabletIndicati ons:Chronic low back pain, unspecified back pain laterality, unspecified whether sciatica present TOME AYESHA TABLETA DOS VECES AL JUS CUANDO SEA NECESARIO PARA EL DOLOR 40 tablet 2 06/17/19 23 025 Discontinued(Re order (will not trigger notification to Pharmacy)) baclofen (Lioresal) 20 MG tabletIndicati ons:Muscle spasm TOME AYESHA TABLETA PRINCE VECES AL JUS PARA EL ESPASMO MUSCULAR CUANDO SEA NECESARIO OR PAIN 90 tablet 5 11/12/19 23 025 Discontinued(Re order (will not trigger notification to Pharmacy)) acetaminophen (Tylenol 8 Hour) 650 MG ER tablet TOME AYESHA TABLETA POR V A ORAL CADA OCHO HORAS CUANDO SEA NECESARIO PARA EL DOLOR OR FEVER 01/15/20 22 025 Discontinued(Re order (will not trigger notification to Pharmacy)) docusate sodium (Colace) 100 MG capsule TOME AYESHA C PSULA DOS VECES AL D A CUANDO SEA NECESARIO 05/29/19 23 025 Discontinued(Re order (will not trigger notification to Pharmacy)) gabapentin (Neurontin) 300 MG capsule TOME AYESHA C PSULA PRINCE VECES AL D A 06/23/19 025 Discontinued(Si de effects) Linzess 145 MCG capsule TOME AYESHA C PSULA TODOS LOS D 09/01/19 025 Discontinued Lidoderm 5 % patch APLIQUE UN PARCHE TODOS LOS D MAY WEAR UP TO 12 HOURS DAILY 02/15/20 025 Discontinued(Re order (will not trigger notification to Pharmacy)) omeprazole (PriLOSEC) [address] capsule TOME AYESHA C PSULA DOS VECES AL D A 10/04/19 025 Discontinued(Re order (will not trigger notification to Pharmacy)) Senna-Time 8.6 MG tablet TOME DOS TABLETAS POR V A ORAL TODOS LOS D AL ACOSTARSE 10/09/19 025 Discontinued sucralfate (Carafate) 1 g tablet TOME AYESHA TABLETA POR V A ORAL AL ACOSTARSE 08/24/19 025 Discontinued Nirmatrelvir&R itonavir 150/100 (Paxlovid, 150/100,) 10 x 150 MG & 10 x 100MG tablet therapy packIndication s:COVID-19 Take 1 Dose by mouth 2 times daily. 3 tabs 2 times a day x 5 days. 30 each 12/24/19 025 Discontinued nicotine (Nicoderm CQ) 21 MG/24HR patchIndicatio ns:Tobacco dependence Place 1 patch on the skin 1 (one) time each day at the same time. 30 patch 12/24/19 025 Discontinued fluticasone (Flonase) 50 MCG/ACT nasal spray SPRAY 2 SPRAYS INTO EACH NOSTRIL TODOS LOS RAMIRES 48 mL 1 01/06/20 025 Discontinued(Re order (will not trigger notification to Pharmacy)) loratadine (Claritin) 10 MG tablet TAKE 1 TABLET BY MOUTH EVERY DAY 90 tablet 3 03/24/19 025 Discontinued(Re order (will not trigger notification to Pharmacy)) loratadine (Claritin) 10 MG tablet TOME AYESHA TABLETA TODOS LOS D 10/12/20 23 01/07/2 025 Discontinued Diclofenac Sodium 1 % gelIndications :Neck pain APPLY 2 GRAMS TOPICALLY IF NEEDED IN THE MORNING AND AT BEDTIME (PAIN). 100 g 3 01/24/20 24 025 Discontinued(Re order (will not trigger notification to Pharmacy)) hydroCHLOROthi azide (HYDRODiuril) 25 MG tablet TAKE 1 TABLET BY MOUTH ONCE A DAY 90 tablet 01/24/20 24 025 Discontinued(Re order (will not trigger notification to Pharmacy)) Active Problems Problem Noted Date Diagnosed Date History of COVID-19 03/19/2024 Chronic allergic rhinitis 05/31/2022 Chronic gastroesophageal reflux disease 06/01/19 23 Hyperlipidemia 05/31/2022 Essential hypertension 05/31/2022 Chronic venous insufficiency 05/31/2022 Diverticulosis 05/31/2022 Tubular adenoma 05/31/2022 Obstructive sleep apnea 05/31/2022 Mild persistent asthma 12/09/2015 Chronic constipation 05/25/2015 Chronic low back pain 05/25/2015 BMI 33.0-33.9,adult 05/25/2015 Major depression, recurrent, chronic 05/25/2015 Tobacco dependence 05/25/2015 Resolved Problems Problem Noted Date Diagnosed Date Resolved Date Lumbago-sciatica due to disp lacement of lumbar intervertebral disc 05/25/2015 05/31/2022 Encounters Date Type Department Care Team Description 03/19/2024 10:00 AM EST Office Visit [address] [address] Beth Alfredo DO Essential hypertension (Primary Dx); Other hyperlipidemia; Tobacco [...] screening mammogram for malignant neoplasm of breast 03/19/2024 Travel 03/12/2024 Patient Outreach [address] [address] Beth Alfredo DO Pre-visit Planning ((SDOH screening negative tobacco screening positive)) 02/20/[address] [address] Melissa Lira [place] March recall 01/24/2024 Refill [facility] [address] [place] [address] Beth Alfredo, DO Neck pain from Last 3 Months Immunizations Name Administration Dates Next Due Influenza injectable quadriv alent IIV4 with preservative 01/22/2018,02/13/2017,12/09/2015 Influenza injectable quadriv alent preservative free 01/14/2022,02/16/2021,12/15/2019,02/15 Influenza, IIV3, injectable 12/25/2013, 1 Pneumococcal Conjugate PCV 20 03/19/2024 Pneumococcal Polysaccharide PPSV23 04/01/2014 TD (adult), 2 Lf tetanus tox oid, preservative free, adsorbed 02/16/2021 Tdap 08/20/2009 Zoster, Recombinant 06/27/2021,04/27/2021 Social History Tobacco Use Types Packs/Day Years Used Date Smoking Tobacco: Every Day Cigarettes 1 30 Smokeless Tobacco: Never Tobacco Cessation:Ready to Q uit: Yes; Counseling Given: Not Answered Depression Answer Date Recorded Patient Health Questionnaire-9 [...] Orientation Straight 01/10/2022 10 :21 AM EDT Last Filed Vital Signs Vital Sign Reading Time Taken Comments Blood Pressure 134/86 03/19/2024 1:44 PM EST Pulse 88 03/19/2024 9:51 AM EST Temperature 36.3 ??C (97.4 ??F) 03/19/2024 9:51 AM ES T Respiratory Rate 20 03/19/2024 9:51 AM EST Oxygen Saturation 98% 11/16/2022 11:10 AM EDT Inhaled Oxygen Concentration - - Weight 91.7 kg (202 lb 2 oz) 03/19/2024 9:51 AM EST Height 165.1 cm (5' 5 ) 03/19/2024 9:51 AM EST Body Mass Index 33.64 03/19/2024 9:51 AM EST Plan of Treatment Health Maintenance Due Date Last Done Comments CT Colonography 1965 FIT DNA/Cologuard 1965 FIT 1965 FOBT 1965 Sigmoidoscopy 1965 Hepatitis A Vaccines (1 of 2 - Risk 2-dose series) 1985 Hepatitis B Vaccines (1 of 3 - 19+ 3-dose series) 1985 Depression Screening 06/01/2023 05/31/2022, 06/01/19 23 COVID-19 Vaccine ( season) 2023 02/01/2022, 07/13/2021, 02/02/2021, Additional history exists Influenza Vaccine (#1) 2023 , 02/16/2021, 12/15/2019, Additional history exists Pap Smear 06/02/2024 06/02/2021 Lung Cancer Screening 01/01/2025 01/02/2024 SDOH Screening 03/12/2025 03/12/2024 Tobacco Screening 03/12/2025 03/12/2024 Alcohol/Substance Use Screening 03/19/2025 03/19/2024 Mammogram 05/02/2025 05/02/2023, 04/13, 04/29/2022, Additional history exists Cervical Cancer Screening 06/02/2026 HPV/Cotest 06/02/2026 06/02/2021, 06/08/2018 Colonoscopy 03/04/2027 Colorectal Cancer Screening 03/04/2027 Lipid Panel 03/19/2029 03/19/2024, 05/12, 01/14/2022, Additional history exists DTaP/Tdap/Td Vaccines (3 - Td or Tdap) 02/16/2031 02/16/2021, 08/20/2009 RSV Patients and Patients Aged 60 years or older (1 - 1-dose 75+ series) 2041 Zoster Vaccines Completed 06/27/2021, 04/27/2021 HIV Screening Completed 03/19/2024 Hepatitis C Screening Completed 03/19/2024 Pneumococcal Vaccine: 50+ Years Completed 03/19/2024, 04/01/2014 HIB Vaccines Aged Out No longer eligi ble based on patient's age to complete this topic HPV Vaccines Aged Out No longer eligi ble based on patient's age to complete this topic IPV Vaccines Aged Out No longer eligi ble based on patient's age to complete this topic Meningococcal Vaccine Aged Out No jim dina eligible based on patient's age to complete this topic RSV under 20 months Aged Out No longe r eligible based on patient's age to complete this topic Rotavirus Vaccines Aged Out No longer eligible based on patient's age to complete this topic Procedures Procedure Name Priority Date/Time Associated Diagnosis Comments HEPATITIS B SURFACE ANTIBODY, QUALITATIVE Routine 03/19/2024 [...] skin tags Healthcare maintenance Encounter for immunization VITAMIN D,25-OH,TOTAL,IA Routine 03/19/2024 10:50 AM EST [...] skin tags Healthcare maintenance Encounter for immunization LDCT LUNG SCREENING Routine 01/02/2024 3 :51 PM EDT BI MAMMOGRAM SCREENING TOMOSYNTHESIS BILATERAL Routine 05/02/2023 10:58 AM EST HPV MRNA E6/E7 REFLEX TO HPV 16, 18/45 Routine 06/02/2021 9:23 AM EDT THINPREP IMAGING SYSTEM PAP Routine 06/02/2021 9:23 AM EDT from Last 3 Months or Most Recently Relevant to Health Maintenance Results * Vitamin D, 25-Hydroxy, Total, Immunoassay (03/19/2024 10:50 AM EST) Vitamin D 25-OH Total 31.2 >30 ng/mL [facility] Comment:Health Based Referen ce Values*< 20 ng/mL Lprovoeeo03-54 ng/mL Insufficient> 30 ng/mL Sufficient*Myla LE. N [...] DO LAB BLOOD ORDERABLES Final R esult [facility] [address] [place] [phone] * Albumin, Random Urine W/Creatinine (03/19/2024 10:50 AM EST) Creatinine, Urine 23.13 mg/dL [facility] Microalbumin Urine <5.0 mg/L [facility] Microalbum Creatinine Ratio Ur TNP <30 ug/mg cr [facility] Comment:Unable to calculate albumin/creatinine ratio due to lowmicroalbumin or creatinine result. Urine (Urine, Random) 03/19/2024 10:50 AM EST 03/19/2024 1:11 PM EST Beth Alfredo DO LAB URINE ORDERABLES Final R esult Performing Organization Address [facility]/ZIP Co de Phone Number [facility] [address] [place] [phone] * Hepatitis C Antibody with Reflex to HCV, RNA, Quantitative, Real-Time PCR (03/19/2024 10:50 AM EST) Pathologist [facility] Hepatitis C Antibody Nonreactive Nonreactive [facility] Comment:Antibodies to HCV no t detected; does not exclude early acuteHCV infection. Blood Venous blood specimen / Unknown 03/19/2024 10:50 AM EST 03/19/2024 1:00 PM EST us Beth Torresjess DO LAB BLOOD ORDERABLES Final R esult Performing Organization Address [facility] Co de Phone Number [facility] [address] [place] [phone] * Chlamydia/N. Gonorrhoeae RNA, TMA, Urogenitial (03/19/2024 10:50 AM EST) Pathologist [facility] CT PCR NOT DETECTED Not Detect. [facility] Comment:A not detected test result [...] psychologicalconsequences. NG PCR NOT DETECTED Not Detect. [facility] Comment:A not detected test result [...] AM EST 03/19/2024 1:11 PM EST Narrative [facility] - 03/19/2024 4:16 PM EST Urine Beth Alfredo DO LAB MICROBIOLOGY - GENERAL O RDERABLES Final Result Performing Organization Address [facility] Co de Phone Number [facility] [address] [place] [phone] * Hepatitis B surface antigen, EIA (03/19/2024 10:50 AM EST) Hepatitis B Surface Ag Negative Negative [facility] Blood Venous blood specimen / Unknown 03/19/2024 10:50 AM EST 03/19/2024 1:00 PM EST Beth Alfredo DO LAB BLOOD ORDERABLES Final R esult Performing Organization Address [facility] Co de Phone Number [facility] [address] [place] [phone] * RPR (Monitor) with Reflex to??Titer (03/19/2024 10:50 AM EST) RPR (Monitor) w/Refl Titer NON-REACTI VE NON-REACT NOEL [facility] Comment:THIS TEST WAS PERFOR MED AT:[facility] [place] [phone] SNELL MD Rapid Plasma Reagin Ab Titer TNP [facility] Blood Venous blood specimen / Unknown 03/19/2024 10:50 AM EST 03/19/2024 1:00 PM EST us Beth Alfredo [employer] LAB BLOOD ORDERABLES Final R esult Performing Organization Address City/[facility]/ZIP Co de Phone Number [facility] [address] [place] [phone] * HIV-1/2 Antigen and Antibodies, Fourth Generation, with Reflexes (03/19/2024 10:50 AM EST) Pathologist [facility] HIV AB/AG Nonreactive Nonreactive [facility] Comment:HIV-1 p24 Ag and/or HIV-1/HIV-2 Ab not detected.A test result that is nonreactive does not exclude thepossibility of exposure to or infection with HIV-1 and/orHIV-2. Nonreactive results in this assay for individualswith prior exposure to HIV-1 and/or HIV-2 may be due toantigen and antibody levels that are below the limit ofdetection of this assay.The [facility] HIV Ag/Ab Combo assay result andsupplemental assay results should be interpreted inconjunction with the patient's clinical presentation,history and other laboratory results. If the results areinconsistent with clinical evidence, additional testing issuggested to confirm the result. Blood Venous blood specimen / Unknown 03/19/2024 10:50 AM EST 03/19/2024 1:00 PM EST us Beth Alfredo DO LAB BLOOD ORDERABLES Final R esult Performing Organization Address City/[facility]/ZIP Co de Phone Number [facility] [address] [place] [phone] * Hepatitis B Surface Antibody, Qualitative (03/19/2024 10:50 AM EST) Pathologist [facility] ~Hepatitis B Surface Antibody NONREACTIVE Nonreactive [facility] Comment:Nonreactive: < 8.00 mIU/mL Blood Venous blood specimen / Unknown 03/19/2024 10:50 AM EST 03/19/2024 1:00 PM EST Beth Alfredo DO LAB BLOOD ORDERABLES Final R esult [facility] [address] [place] [phone] * CBC (03/19/2024 10:50 AM EST) Pathologist [facility] White Blood Count 7.9 4.8 - 10.8 X10*3/uL [facility] Red Blood Count 4.89 4.20 - 5.50 X10*6/uL [facility] Hemoglobin 13.8 12.0 - 16.0 g/dl [facility] Hematocrit 42.7 37.0 - 47.0 % [facility] Mean Corpuscular Volume 87.3 80.0 - 98.0 fL [facility] Mean Corpuscular Hemoglobin 28.2 27.0 - 33.0 pg [facility] Mean Corpuscular HGB Conc 32.3 31.0 - 35.0 g/dl [facility] Red Cell Distribution Width 13.6 11.0 - 16.0 % [facility] Platelet Count 228 160 - 400 X10*3/uL [facility] Mean Platelet Volume 11.4 9.4 - 12.3 fL [facility] NRBC Pct Auto 0.0 0.0 - 0.2 /100WBC [facility] NRBC Abs Auto 0.000 0.0 - 0.012 X10*3/uL [facility] Blood Venous blood specimen / Unknown 03/19/2024 10:50 AM EST 03/19/2024 1:00 PM EST Beth Torresjess DO LAB BLOOD ORDERABLES Final R esult Performing Organization Address [facility] Co de Phone Number [facility] [address] [place] [phone] * TSH (03/19/2024 10:50 AM EST) Thyroid Stimulating Hormone 1.19 0.32 - 4.0 uIU/mL [facility] Comment:TSH 3rd Generation ( [facility]) Blood Venous blood specimen / Unknown 03/19/2024 10:50 AM EST 03/19/2024 1:00 PM EST Beth Juni DO LAB BLOOD ORDERABLES Final R [facility] Performing Organization Address [facility] Co de Phone Number [facility] [address] [place] [phone] * T4, Free (03/19/2024 10:50 AM EST) Free T4 (Free Thyroxine) 0.98 0.71 - 1.85 ng/dL [facility] Blood Venous blood specimen / Unknown 03/19/2024 10:50 AM EST 03/19/2024 1:00 PM EST Beth Juni DO LAB BLOOD ORDERABLES Final R [facility] Performing Organization Address [facility] Co de Phone Number [facility] [address] [place] [phone] * Hemoglobin A1c (03/19/2024 10:50 AM EST) Hemoglobin A1c 5.6 <6.0 % [facility] Comment:Hemoglobin A1C Refer ence Range Adults: 4.8 - 6.0 % Non diabetic: < 6.0 % Goal: < 7.0 %Additional Action Suggested: > 8.0 %Note: Hemoglobin A1c results are invalid for patients with abnormal amounts of HbF. Blood transfusions may impact the HbA1c concentration in the patient sample. Estimated Average Glucose 114 mg/dL [facility] Comment:eAG = Estimated ave rage glucose which is %A1C expressed asaverage glucose, using the formula of the F4O-PbvtlxyAiwmwvd Glucose study (ADAG), Diabetes Care, Vol.31,#8,Oct. 2007 Blood Venous blood specimen / Unknown 03/19/2024 10:50 AM EST 03/19/2024 1:00 PM EST Beth Alfredo DO LAB BLOOD ORDERABLES Final R esult Performing Organization Address [facility] Co de Phone Number [facility] [address] [place] [phone] * (ABNORMAL) Hepatic Function Panel (03/19/2024 10:50 AM EST) Bilirubin, Total 0.4 0.0 - 1.0 mg/dL [facility] Bilirubin, Direct 0.1 0.0 - 0.5 mg/dL [facility] Aspartate Amino Transferase 25 5 - 31 U/L [facility] Alanine Aminotransferase 33(H) 0 - 31 U/L [facility] Total Protein 6.9 6.5 - 8.0 g/dL [facility] Albumin Level 4.1 3.5 - 5.0 g/dL [facility] Alkaline Phosphatase 49 39 - 117 U/L [facility] Blood Venous blood specimen / Unknown 03/19/2024 10:50 AM EST 03/19/2024 1:00 PM EST Beth Alfredo DO LAB BLOOD ORDERABLES Final R esult Performing Organization Address [facility] Co de Phone Number [facility] [address] [place] [phone] * (ABNORMAL) Lipid Panel, Standard (03/19/2024 10:50 AM EST) Triglycerides 156(H) <150 mg/dL [facility] Comment:Desirable Triglyceri de: less than 150 mg/dLBorderline High Triglyceride 150-199 mg/dLHigh Triglyceride: 200-499 mg/dLVery High Triglyceride: greater than or equal to 5OO mg/dL Cholesterol 147 <200 mg/dL [facility] Comment:Desirable Cholestero l: less than 200 mg/dLBorderline High Cholesterol: 200-239 mg/dLHigh Cholesterol: greater than 239 mg/dL LDL Cholesterol Calculated 74 <100 mg/dL [facility] Comment:Desirable LDL: less than 100 mg/dLNear Optimal/Above Optimal LDL: 110- 129 mg/dLBorderline High LDL: 130-159 mg/dLHigh LDL: 160-189 mg/dLVery High LDL: greater than or equal to 190 mg/dL HDL Cholesterol 42 >40 mg/dL [facility] Comment:Desirable HDL: great er than 40 mg/dL Note: This HDL assay may give artificially low results in patients with liver disease. Blood Venous blood specimen / Unknown 03/19/2024 10:50 AM EST 03/19/2024 1:00 PM EST us Beth Alfredo DO LAB BLOOD ORDERABLES Final R esult [facility] [address] [place] [phone] * (ABNORMAL) Basic Metabolic Panel (03/19/2024 10:50 AM EST) Sodium 141 135 - 145 mmol/L [facility] Potassium 3.7 3.3 - 5.1 mmol/L [facility] Chloride 108 96 - 108 mmol/L [facility] Carbon Dioxide 26 22 - 29 mmol/L [facility] Anion Gap 11(L) 12 - 20 [facility] Urea Nitrogen (BUN) 12 9 - 16 mg/dL [facility] Creatinine, Serum 0.69 0.5 - 1.4 mg/dL [facility] Estimated Glomerular Filt Rate >60 [facility] Comment:Chronic Kidney Disea se: Estimated GFR < 60 mL/min/[id number] Kidney Disease: Estimated GFR < 15 mL/min/1.73m2 Glucose 91 60 - 115 mg/dL [facility] Calcium 9.2 8.4 - 10.2 mg/dL [facility] Blood Venous blood specimen / Unknown 03/19/2024 10:50 AM EST 03/19/2024 1:00 PM EST us Beth Alfredo DO LAB BLOOD ORDERABLES Final R esult [facility] [address] [place] [phone] * CT Lung Screening Low dose (01/02/2024 3:51 PM EDT) Anatomical Region Laterality Modality Lung Computed Tomogra phy 01/02/2024 3:51 PM EDT Narrative 02/21/2024 1:14 PM EST ? [facility] ?[address] ?[place] [address] ? CT Scan Report ? Signed ? Patient: Natalie Aranda ?M ?? R#: [id number] ? : 1965 ?Acct:[id number] ? Age/Sex: 58 / F ?ADM Date: 01/02/24 ? Loc: HO.CT ? Attending Dr: Breanne José PA-C ? Ordering Physician: Brenane José PA-C ?? Date of Service: 01/02/24 ?? Procedure(s): CT lung screening ?? Accession Number(s): [id number] ? cc: Beth Alfredo DO; Breanne José PA-C ? EXAMINATION: ?? CT LOW-DOSE SCREENING CHEST WITHOUT CONTRAST ? CLINICAL INFORMATION: ?? Nicotine dependence, cigarettes, uncomplicated. The patient is a ?? current smoker with a 35 pack-year history of smoking. ? COMPARISON: ?? CT chest 07/08/2022 and x-ray chest 04/11/2020. ? TECHNIQUE: ?? Multidetector volumetric CT imaging of the chest is performed on a ?? Siemens SOMATOM Definition scanner without contrast using low dose ?? technique. Additional 2D coronal and sagittal reformatted images and ?? axial 3D maximum intensity projection (MIP) images are generated on the ?? CT workstation. ? This CT examination was performed using dose optimization techniques as ?? appropriate, variously including the following: ?? *Automated exposure control ?? *Adjustment of mA and/or kV according to patient size (this includes ?? techniques or standardized protocols for targeted exams where dose is ?? matched to indication/reason for exam; i.e. extremities or head) ?? *Use of iterative reconstruction technique ? TOTAL EXAM DLP: ?? 58 mGy-cm. ? CTDIvol: ?? 1.75 mGy. ? FINDINGS: ? PULMONARY NODULES: Small 3 mm subpleural right upper lobe nodule, ?? unchanged (5:105, compare prior 5:121). Unchanged 3 mm nodular density, ?? which may be endobronchial in the right upper lobe (5:91, compare prior ?? 5:95). There is no new, increasing-sized or concerning nodule. ? LUNGS: Lungs bilaterally symmetrically expanded. There is mild ?? emphysema and bronchial thickening without bronchiectasis. No effusion ?? or pneumothorax. Central airways patent. ? MEDIASTINUM: No mediastinal, hilar or axillary adenopathy or free fluid ?? collection. ? CORONARY ARTERY CALCIFICATION: None visualized on this study. ? THYROID GLAND: Unremarkable to the extent seen. ? CARDIOVASCULAR STRUCTURES: Aortic and heart size normal. No pericardial ?? effusion. ? CHEST WALL/AXILLA: Unremarkable. ? UPPER ABDOMEN: Included portions of the solid organs in the upper ?? abdomen unremarkable on noncontrast imaging. ? OSSEOUS STRUCTURES: There is a biconvex thoracolumbar scoliosis present ?? along with degenerative changes in the spine, similar to prior ? CT/CT lung screening ?? IMPRESSION: ?? 1. Stable small pulmonary nodules. No new or increasing-sized nodule. ?? 2. Mild emphysema and bronchial thickening. ?? 3. Other incidental findings as described above. ? ASSESSMENT: ?? 1. Lung-RADS Category 2: Benign appearance or behavior of nodules. N/A ? 2. Lung-RADS Category S: Negative. There are no clinically significant ?? or potentially clinically significant findings not related to the lungs ?? requiring urgent additional evaluation. ? RECOMMENDATION: ?? Continued routine annual low-dose CT lung screening in 1 year is ?? recommended. An order for CT CHEST LOW DOSE CANCER SCREENING ([id number]) ?? can be placed. ? Electronically signed by: ??Rufino Mancera MD ??02/21/2024 01:11 PM EST ? Dictated By: ?Rufino Mancera MD ? Signed By: ?<Electronically signed by Rufino Mancera MD in OV> ? 02/21/24 1311 ? DD/ 1551 ? TD/TT: 01/02/24 1556 ? Industrial Relations Manager: SS ? Procedure Note Nj, Image - 02/21/[address] [place] [address] [address] Scan Report Signed Patient: Natalie Aranda R#: [id number] : 1965Acct:[id number] Age/Sex: 58 / FADM Date: 01/02/24 Loc: HO.CT Attending Dr: Breanne José PA-C Ordering Physician: Breanne José PA-C Date of Service: 01/02/24 Procedure(s): CT lung screening Accession Number(s): [id number] cc: Beth Alfredo DO; Breanne José PA-C EXAMINATION: CT LOW-DOSE SCREENING CHEST WITHOUT CONTRAST CLINICAL INFORMATION: Nicotine dependence, cigarettes, uncomplicated. The patient is a current smoker with a 35 pack-year history of smoking. COMPARISON: CT chest 07/08/2022 and x-ray chest 04/11/2020. TECHNIQUE: Multidetector volumetric CT imaging of the chest is performed on a Siemens SOMATOM Definition scanner without contrast using low dose technique. Additional 2D coronal and sagittal reformatted images and axial 3D maximum intensity projection (MIP) images are generated on the CT workstation. This CT examination was performed using dose optimization techniques as appropriate, variously including the following: *Automated exposure control *Adjustment of mA and/or kV according to patient size (this includes techniques or standardized protocols for targeted exams where dose is matched to indication/reason for exam; i.e. extremities or head) *Use of iterative reconstruction technique TOTAL EXAM DLP: 58 mGy-cm. CTDIvol: 1.75 mGy. FINDINGS: PULMONARY NODULES: Small 3 mm subpleural right upper lobe nodule, unchanged (5:105, compare prior 5:121). Unchanged 3 mm nodular density, which may be endobronchial in the right upper lobe (5:91, compare prior 5:95). There is no new, increasing-sized or concerning nodule. LUNGS: Lungs bilaterally symmetrically expanded. There is mild emphysema and bronchial thickening without bronchiectasis. No effusion or pneumothorax. Central airways patent. MEDIASTINUM: No mediastinal, hilar or axillary adenopathy or free fluid collection. CORONARY ARTERY CALCIFICATION: None visualized on this study. THYROID GLAND: Unremarkable to the extent seen. CARDIOVASCULAR STRUCTURES: Aortic and heart size normal. No pericardial effusion. CHEST WALL/AXILLA: Unremarkable. UPPER ABDOMEN: Included portions of the solid organs in the upper abdomen unremarkable on noncontrast imaging. OSSEOUS STRUCTURES: There is a biconvex thoracolumbar scoliosis present along with degenerative changes in the spine, similar to prior CT/CT lung screening IMPRESSION: 1. Stable small pulmonary nodules. No new or increasing-sized nodule. 2. Mild emphysema and bronchial thickening. 3. Other incidental findings as described above. ASSESSMENT: 1. Lung-RADS Category 2: Benign appearance or behavior of nodules. N/A 2. Lung-RADS Category S: Negative. There are no clinically significant or potentially clinically significant findings not related to the lungs requiring urgent additional evaluation. RECOMMENDATION: Continued routine annual low-dose CT lung screening in 1 year is recommended. An order for CT CHEST LOW DOSE CANCER SCREENING ([id number]) can be placed. Electronically signed by: Rufino Mancera MD 02/21/2024 01:11 PM [facility] Dictated By: Rufino Mancera MD Signed By: <Electronically signed by Rufino Mancera MD in OV> 02/21/24 1311 DD/ 1551 TD/TT: 01/02/24 1556 Industrial Relations Manager: ALVINA us [facility] External Provider IMG CT PROCEDURES Edited Result - Final * BI Mammogram Screening Tomosynthesis Bilateral (05/02/2023 10:58 AM EST) Anatomical Region Laterality Modality Breast Bilateral Mammography 05/02/2023 10:5 8 AM EST Narrative 05/23/2023 12:49 PM EDT ? [facility] [place] ? [address] ?[place] [address] ? Mammography Report ? Signed ? Patient: Natalie Aranda ?M ?? R#: [id number] ? : 1965 ?Acct:[id number] ? Age/Sex: 58 / F ?ADM Date: 05/02/23 ? Loc: HO.MAMMO ? Attending Dr: Beth Alfredo DO ? Ordering Physician: Beth Alfredo DO ?Results: 2B ?? enign Findings ? Date of Service: 05/02/23 ?Follow Up: 1 Year From Orig ?? inal Mammogram ? Procedure(s): MM tomosynthesis screening BI ?? Accession Number(s): [id number] ? cc: Beth Alfredo DO ? EXAMINATION: ?? MM SCREENING DIGITAL BREAST TOMOSYNTHESIS, BILATERAL ? CLINICAL INFORMATION: ? Screening. Asymptomatic. ? COMPARISON: ?? Mammography: This study is compared with prior exams dating back to ?? 2018. ? TECHNIQUE: ?? Digital breast tomosynthesis is performed in both the craniocaudal and ?? mediolateral oblique views along with computer-aided detection (CAD). ?? Synthesized 2D images are generated from the tomosynthesis. ? FINDINGS: ?? There are scattered areas of fibroglandular density (ACR BI-RADS breast ?? composition Category b). ? There are no significant masses, abnormal calcifications, or other ?? abnormalities. ? There is tissue marker present in the medial aspect of the right breast ?? from prior benign percutaneous biopsy. ? MM/MM tomosynthesis screening BI ?? IMPRESSION: ?? No mammographic evidence of malignancy. ? ASSESSMENT: ? BI-RADS BI-RADS 2 - Benign Findings ? RECOMMENDATION: ?? Routine annual mammography screening. ? 1 year F/U ? This examination should not preclude the clinical evaluation of a ?? suspicious palpable abnormality. ? This patient's information was entered into a reminder system with a ?? target due date for their next mammogram. ? Dictated By: ?Flor Loredo MD ? Signed By: ?<Electronically signed by Flor Loredo MD in OV> ? 05/23/23 1245 ? DD/ 1058 ? TD/TT: ? Industrial Relations Manager: ? Procedure Note Nj, Image - 05/23/2023 [facility] [address] [place] [address] Mammography Report Signed Patient: Natalie Aranda BRIAN R#: [id number] : 1965Acct:[id number] Age/Sex: 58 / FADM Date: 05/02/23 Loc: TOMASA.ROO Attending Dr: Beth Alfredo DO Ordering Physician: Beth Alfredoults: 2B enign Findings Date of Service: 05/02/23Follow Up: 1 Year From Orig inal Mammogram Procedure(s): MM tomosynthesis screening BI Accession Number(s): [id number] cc: Jurcsak,Beth A DO EXAMINATION: MM SCREENING DIGITAL BREAST TOMOSYNTHESIS, BILATERAL CLINICAL INFORMATION: Screening. Asymptomatic. COMPARISON: Mammography: This study is compared with prior exams dating back to 2019. TECHNIQUE: Digital breast tomosynthesis is performed in both the craniocaudal and mediolateral oblique views along with computer-aided detection (CAD). Synthesized 2D images are generated from the tomosynthesis. FINDINGS: There are scattered areas of fibroglandular density (ACR BI-RADS breast composition Category b). There are no significant masses, abnormal calcifications, or other abnormalities. There is tissue marker present in the medial aspect of the right breast from prior benign percutaneous biopsy. MM/MM tomosynthesis screening BI IMPRESSION: No mammographic evidence of malignancy. ASSESSMENT: BI-RADS BI-RADS 2 - Benign Findings RECOMMENDATION: Routine annual mammography screening. 1 year F/U This examination should not preclude the clinical evaluation of a suspicious palpable abnormality. This patient's information was entered into a reminder system with a target due date for their next mammogram. Dictated By: Flor Loredo MD Signed By: <Electronically signed by Flor Loredo MD in OV> 05/23/23 1245 DD/ 1058 TD/TT: Industrial Relations Manager: Beth Alfredo DO IMG BI PROCEDURES Final Resu lt * THINPREP TIS PAP (06/02/2021 9:23 AM EDT) Clinical Information: None given [facility] COMMENT SEE COMMENT [facility] Comment: EXPLANATORY NOTE: ? The Pap is a screening test for cervical cancer. It is ?? not a diagnostic test and is subject to false negative ?? and false positive results. It is most reliable when a ?? satisfactory sample, regularly obtained, is submitted ?? with relevant clinical findings and history, and when ?? the Pap result is evaluated along with historic and ?? current clinical information. ?? COMMENT: This Pap test has been evaluated with computer assisted technology. [employer] [facility] Field Tax Auditor : SEE COMMENT [facility] Comment: [facility], CT(ASCP) CT screening location: [address] ??[address] Interpretation/R esult: Negative for intraepithelial lesion or malignancy. [facility] LMP: NONE GIVEN [facility] Prev. BX: NONE GIVEN [facility] Prev. PAP: NONE GIVEN [facility] SOURCE: None given [facility] Statement Of Adequacy: SEE COMMENT [facility] Comment: Satisfactory for evaluation. Endocervical/transformation zone component absent. 06/02/2021 9:23 AM EDT us Beth Alfredo DO LAB PATHOLOGY ORDERABLES Fin al Result Performing Organization Address [facility] Co de Phone Number [facility] [address] * HPV mRNA E6/E7 REFLEX TO HPV 16, 18/45 (06/02/2021 9:23 AM EDT) HPV nRNA E6/E7 Not Detected Not Detected [facility] Comment: Methodology: Header Up-Mediated Amplification This assay detects E6/E7 viral messenger RNA (mRNA) from 14 high-risk HPV types (16,18,31,33,35,39,45,51,52,56,58,59,66,68). ? The analytical performance characteristics of this assay have been determined by [employer]. The modifications have not been cleared or approved by the FDA. This assay has been validated pursuant to the CLIA regulations and is used for clinical purposes. ?? For additional information, please refer to http://education.[employer]/faq/TCW530u0 (This link if provided for information/ educational purposes only.) 06/02/2021 9:23 AM EDT us Beth Alfredo DO LAB CYTOLOGY ORDERABLES Nevin l Result Performing Organization Address [facility] Co de Phone Number [facility] [address] from Last 3 Months or Most Recently Relevant to Health Maintenance Insurance [facility] C3 Care Teams Sanitation Supervisor Relationship Specialty Start Date End Date Beth Alfredo DO [address] [place] [address] PCP - General Family Medicine 11/25/14
--- OUTSIDE RECORDS SUMMARY | 2024-04-12 12:47 | XMS_ITS | Encounter Summary ---
Author Organization [employer] Address [address] 7[address] [place] [address] Care Team Providers Care Hog Operator Name Role Phone Beth Alfredo DO Primary Care Provider [phone] Encounter Details Date Type Department Care Team (Late st Contact Info) Description 03/24/2023 Orders Only [facility] MED & PEDS [address] [place] [address] Beth Mckinnon LPN Social History Tobacco Use Types Packs/Day Years Used Date Smoking Tobacco: Every Day Cigarettes 1 30 Smokeless Tobacco: Never Depression Answer Date Recorded Patient Health Questionnaire-9 Score 0 05/31/2022 Housing Stability Answer Date Recorded What is your housing situation today? I have kerry wheeler 12/29/[address] you li ve. Do you have problems with any of the following? None of the above 12/29/2022 Food Insecurity Answer Date Recorded Within the past 12 months, y ou worried that your food would run out before you got money to buy more: Never True 12/29/2022 Within the past 12 months,th e food you bought just didn't last and you didn't have enough money to get more: Never True Transportation Answer Date Recorded In the past 12 months, has l ack of transportation kept you from medical appts, meetings, work or from getting things needed for daily living? No 12/29/2022 Utilities Answer Date Recorded In the past 12 months, has t he electric, gas, oil or water company threatened to shut off services in your home? No 12/29/2022 Depression Answer Date Recorded Patient Health Questionnaire-2 Score 0 05/31/2022 Comments Unknown Sex and Gender Information Value [...] documented as of this encounter Care Teams Hog Operator Relationship Specialty Start Date End Date Beth Alfredo DO [address] [place] [address] PCP - General Family Medicine 11/25/14 documented as of this encounter
--- OUTSIDE RECORDS SUMMARY | 2024-04-12 12:48 | XMS_ITS | Encounter Summary ---
Author Organization [employer] Address [address] [facility] [address]t [place] [address] Care Team Providers Care Perinatal Instructor Name Role Phone Beth Alfredo DO Primary Care Provider [phone] Reason for Visit * Reason Comments Med Refill Encounter Details Date Type Department Care Team ([facility] st Contact Info) Description 08/23/2022 Refill [facility] MEDICINE [address] [place] [address] Bteh Alfredo DO [address] [place] [address] Tobacco dependence Social History Tobacco Use Types Packs/Day Years Used Date Smoking Tobacco: Never Assessed Depression Answer Date Recorded Patient Health Questionnaire-9 Score 0 05/31/2022 Depression Answer Date Recorded Patient Health Questionnaire-2 [...] documented as of this encounter Visit Diagnoses Diagnosis Tobacco dependence Tobacco use disorder documented in this encounter Additional Health Concerns Assessment Noted Time PHQ-9 Depression Total Score: 0 06/01/19 10:02 AM EDT documented as of this encounter Care Teams Perinatal Instructor Relationship Specialty Start Date End Date Beth Alfredo DO [address] [place] [address] PCP - General Family Medicine 11/25/14 documented as of this encounter
--- OUTSIDE RECORDS SUMMARY | 2024-04-12 12:48 | XMS_ITS | Encounter Summary ---
Author Organization [employer] Address [address] [facility] 7t [place] [address] Care Team Providers Care Manager Engine Name Role Phone Beth Alfredo DO Primary Care Provider Encounter Details Date Type Department Care Team ([facility] st Contact Info) Description 08/05/2022 Abstract [facility] [address] [place] [address] Beth Alfredo DO [address] [place], [place] [phone] Social History Tobacco Use Types Packs/Day Years [...] documented as of this encounter Care Teams Manager Engine Relationship Specialty Start Date End Date Beth Alfredo DO [address] [place], [place] [phone] PCP - General Family Medicine 11/25/14 documented as of this encounter
--- OUTSIDE RECORDS SUMMARY | 2024-04-12 12:48 | XMS_ITS | Encounter Summary ---
Author Organization [employer] Address [address] [facility] 7t [place] [address] Care Team Providers Care Lead Manufacturing Engineering Tech Name Role Phone Beth Alfredo DO Primary Care Provider [phone] Encounter Details Date Type Department Care Team (Late st Contact Info) Description 09/12/2022 Orders Only [facility] MED & PEDS [address] [place] [address] Beth Mckinnon LPN Social History Tobacco Use [...] documented as of this encounter Care Teams Lead Manufacturing Engineering Tech Relationship Specialty Start Date End Date Beth Alfredo DO [address] [place] [address] PCP - General Family Medicine 11/25/14 documented as of this encounter
--- OUTSIDE RECORDS SUMMARY | 2024-04-12 12:48 | XMS_ITS | Encounter Summary ---
Author Organization [employer] Address [address] [facility] 7t [place] [address] Care Team Providers Care Paramedic Rn Name Role Phone Beth Alfredo DO Primary Care Provider [phone] Encounter Details Date Type Department Care Team ([facility] st Contact Info) Description 06/22/2022 Orders Only [facility] MEDICINE [address] [place] [address] Beth Alfredo DO [address] [place] [address] Social History Tobacco Use Types Packs/Day Years [...] Orientation Straight 01/10/2022 10 :21 AM EDT COVID-19 Exposure Response Date Recorded In the last 10 days, have yo u been in contact with someone who was confirmed or suspected to have Coronavirus/COVID-19? No / Unsure 05/31/2022 9:46 AM EDT documented as of this encounter Plan of Treatment Not on file documented as of this encounter Visit Diagnoses Not on filedocumented in this encounter Additional Health Concerns Assessment Noted Time PHQ-9 Depression Total Score: 0 06/01/19 23 10:02 AM EDT documented as of this encounter Care Teams Paramedic Rn Relationship Specialty Start Date End Date Beth Alfredo DO [address] [place] [address] PCP - General Family Medicine 11/25/14 documented as of this encounter
== END 2024-04-12 12:21 | disposition home or self-care (01) ==
LOC: HO.NEURO 12:20
PROVIDERS: PCP Family Medicine; Visit Provider Family Medicine
DX: M79.674 Pain in right toe(s) (principal); M79.675 Pain in left toe(s)
CPT/HCPCS: 95886; 95909

== ENCOUNTER 2024-05-16 11:11 | Outpatient (REF) | payer MEDICAID, SELFPAY ==
--- OUTSIDE RECORDS SUMMARY | 2024-05-16 13:41 | XMS_ITS | Encounter Summary ---
Author Organization [employer] Address [address] [place] [address] Care Team Providers Care Special Ed Assistant Name Role Phone Beth Alfredo DO Primary Care Provider Encounter Details Date Type Department Care Team ([facility] st Contact Info) Description 04/04/2022 Orders Only [facility] MED & PEDS [address] [place] [address] Beth Mckinnon LPN Social History Tobacco Use [...] EST Narrative 05/02/2022 12:54 PM EST ? [facility] ? [address] ?[place] [address] ? Mammography Report ? Signed ? Patient: Troy Roni,Natalie E ?M ?? R#: [id number] ? : 1965 ?Acct:[id number] ? Age/Sex: 57 / F ?ADM Date: 02/17/23 ? Loc: HO.MAMMO ? Attending Dr: Beth Alfredo DO ? Ordering Physician: Beth Alfredo DO ?Results: 1N ?? egative ? Date of Service: 04/29/22 ?Follow Up: 1 Year From Orig ?? inal Mammogram ? Procedure(s): MM tomosynthesis screening BI ?? Accession Number(s): [id number] ? cc: Beth Alfredo DO ? EXAMINATION: [...] 1251 ? DD/ 0915 ? TD/TT: ? Outdoor Recreation Specialist: ROMANO ? Procedure Note Nj, Image - 05/02/2022 [facility] [address] [place], [place] [address] Mammography Report Signed Patient: Natalie Aranda EM R#: [id number] : 1965Acct:[id number] Age/Sex: 57 / FADM Date: 04/29/22 Loc: HO.MAMMO Attending Dr: Beth Alfredo DO Ordering Physician: Beth Alfredoults: 1N egative Date of Service: 04/29/22Follow Up: 1 Year From Orig inal Mammogram Procedure(s): MM tomosynthesis screening BI Accession Number(s): [id number] cc: Beth Alfredo DO EXAMINATION: MM SCREENING [...] in OV> 05/02/22 1251 DD/ 0915 TD/TT: Outdoor Recreation Specialist: ROMANO [facility] External Provider IMG BI PROCEDURES Edited Result - Final documented in this encounter Visit Diagnoses Not on filedocumented in this encounter Care Teams Special Ed Assistant Relationship Specialty Start Date End Date Beth Alfredo DO [address] [place] [address] PCP - General Family Medicine 11/25/14 documented as of this encounter
--- OUTSIDE RECORDS SUMMARY | 2024-05-16 13:41 | XMS_ITS | Encounter Summary ---
Author Organization [facility] Address [address] [facility] [address]t [place] [address] Care Team Providers Care Clerical Receptionist Name Role Phone Beth Alfredo DO Primary Care Provider Encounter Details Date Type Department Care Team ([facility] st Contact Info) Description 08/05/2022 Abstract [place] [address] [place] [address] Beth Alfredo DO [address] [place], [place] [phone] Social History Tobacco Use Types Packs/Day Years [...] documented as of this encounter Care Teams Clerical Receptionist Relationship Specialty Start Date End Date Beth Alfredo DO [address] [place], [place] [phone] PCP - General Family Medicine 11/25/14 documented as of this encounter
--- OUTSIDE RECORDS SUMMARY | 2024-05-16 13:41 | XMS_ITS | Encounter Summary ---
Author Organization [employer] Address [address] [place] [address] Care Team Providers Care Manager Farm Name Role Phone Beth Alfredo DO Primary Care Provider Encounter Details Date Type Department Care Team (Late st Contact Info) Description 03/24/2023 Orders Only [facility] MED & PEDS [address] [place] [address] Beth Mckinnno LPN Social History Tobacco Use Types Packs/Day [...] as of this encounter Care Teams Manager Farm Relationship Specialty Start Date End Date Beth Alfredo DO [address] [place] [address] PCP - General Family Medicine 11/25/14 documented as of this encounter
--- OUTSIDE RECORDS SUMMARY | 2024-05-16 13:41 | XMS_ITS | Encounter Summary ---
Author Organization [employer] Address [address] [facility] [address] [place] [address] Care Team Providers Care Kapok And Cotton Machine Operator Name Role Phone Beth Alfredo DO Primary Care Provider [phone] Reason for Visit * Reason Comments Med Refill Encounter Details Date Type Department Care Team ([facility] st Contact Info) Description 08/23/2022 Refill [facility] MEDICINE [address] [place] [address] Beth Alfredo DO [address] [place] [address] Tobacco dependence Social History Tobacco Use Types [...] documented as of this encounter Care Teams [employer] Machine Operator Relationship Specialty Start Date End Date Beth Alfredo DO [address] [place] [address] PCP - General Family Medicine 11/25/14 documented as of this encounter
--- OUTSIDE RECORDS SUMMARY | 2024-05-16 13:41 | XMS_ITS | Encounter Summary ---
Author Organization [employer] Address [address] [facility] [address] [place] [address] Care Team Providers Care Arc Welder Name Role Phone Beth Alfredo DO Primary Care Provider Encounter Details Date Type Department Care Team ([facility] st Contact Info) Description 06/22/2022 Orders Only [facility] [address] [place] [address] Beth Alfredo DO [address] [place] [address] Social History Tobacco Use Types Packs/Day Years [...] documented as of this encounter Care Teams Arc Welder Relationship Specialty Start Date End Date Beth Alfredo DO [address] [place] [address] PCP - General Family Medicine 11/25/14 documented as of this encounter
--- OUTSIDE RECORDS SUMMARY | 2024-05-16 13:41 | XMS_ITS | Clinical Summary ---
Author Organization [employer] Address [address] [facility] [address] [place] [address] Care Team Providers Care Sewer Bricklayer Name Role Phone Beth Alfredo Primary Care Provider Allergies No known active allergies Medications Misc. Devices (Pulse Oximeter For Finger) miscIndications: COVID-19 To use every 4 hours. Call the office if O2 Sat falls below 90% 1 each 3 Active atorvastatin (Lipitor) 20 MG tablet TAKE 1 TABLET BY MOUTH EVERY DAY 90 tablet 3 4 Active omeprazole (PriLOSEC) [address] capsule Take 1 capsule (40 mg) by mouth before breakfast and before evening meal. Do not crush or chew. 180 capsule 3 5 03/19/19 26 Active loratadine (Claritin) 10 MG tablet TAKE 1 TABLET BY MOUTH EVERY DAY 90 tablet 3 5 Active hydroCHLOROthiaz carolina (HYDRODiuril) 25 MG tablet TAKE 1 TABLET BY MOUTH ONCE A DAY 90 tablet 5 Active fluticasone (Flonase) 50 MCG/ACT nasal spray Administer 2 sprays into each nostril Once per day. Shake gently. Before first use, prime pump. After use, clean tip and replace cap. 48 mL 3 5 Active docusate sodium (Colace) 100 MG capsule Take 1 capsule (100 mg) by mouth 2 times daily. 180 capsule 3 5 03/19/19 26 Active acetaminophen (Tylenol 8 Hour) 650 MG ER tablet Take 1 tablet (650 mg) by mouth every 8 (eight) hours if needed for mild pain. Do not crush, chew, or split. 60 tablet 3 5 03/19/19 26 Active baclofen (Lioresal) 20 MG tablet TOME AYESHA TABLETA PRINCE VECES AL JUS PARA EL ESPASMO MUSCULAR CUANDO SEA NECESARIO OR PAIN 90 tablet 3 5 Active cholecalciferol (Vitamin D-3) 50 MCG (2000 UT) capsule Take 1 capsule (50 mcg) by mouth Once per day. 90 capsule 5 Active Diclofenac Sodium 1 % gelIndications:N beatris pain Apply 2 g topically if needed in the morning, at noon, in the evening, and at bedtime (pain). 150 g 5 Active polyethylene glycol, PEG, 3350 (MiraLax) 17 GM/SCOOP powder Take 17 g by mouth if needed each day (constipation) . 527 g 5 03/19/19 26 Active amitriptyline (Elavil) 10 MG tablet Take 1 tablet (10 mg) by mouth at bedtime. 30 tablet 5 09/16/19 25 Active polycarbophil (Fibercon) 625 MG tablet Take 1 tablet (625 mg) by mouth 2 times daily. 180 tablet 5 03/19/19 26 Active fluticasone furoate (Arnuity Ellipta) 100 MCG/ACT inhaler Inhale 1 puff Once per day. Rinse mouth with water after use to reduce aftertaste and incidence of candidiasis. Do not swallow. 3 each 5 03/19/19 26 Active albuterol 108 (90 Base) MCG/ACT inhaler Inhale 2 puffs every 4 (four) hours if needed for shortness of breath or wheezing. 18 g 2 5 03/19/19 26 Active Lidoderm 5 % patch Apply 2 patches topically if needed each day for mild pain. Remove & discard patch within 12 hours or as directed by MD. 60 patch 3 5 03/19/19 26 Active diclofenac (Voltaren) 50 MG EC tabletIndication s:Chronic low back pain, unspecified back pain laterality, unspecified whether sciatica present Take 1 tablet (50 mg) by mouth if needed in the morning and at bedtime (pain). Do not crush, chew, or split. 30 tablet 3 5 Active traMADol (Ultram) 50 MG tabletIndication s:Chronic bilateral low back pain with bilateral sciatica Take 1 tablet (50 mg) by mouth every 6 (six) hours if needed for severe pain for up to 28 days. 112 tablet 5 04/16/19 25 Active Problems Problem Noted Date Diagnosed Date [...] Description 03/19/2024 10:00 AM EST Office Visit [facility] [address] [place] [phone] Beth Alfredo DO Essential hypertension (Primary Dx); [...] of breast 03/19/2024 Travel 03/12/[address] [facility] [address] [place] [phone] Beth Alfredo DO Pre-visit Planning ((SDOH screening negative tobacco screening positive)) 02/20/[address] [facility] [address] [place] [phone] Melissa Lira MA Laine recall from Last 3 Months Immunizations Name Administration [...] Vitamin D 25-OH Total 31.2 >30 ng/mL [facility] Comment:Health Based Referen ce Values*< 20 ng/mL [id number] ng/mL Insufficient> 30 ng/mL Sufficient*Myla LE. N [...] DO LAB BLOOD ORDERABLES Final R esult [facility] [address] [place] [phone] * Albumin, Random Urine W/Creatinine (03/19/2024 10:50 AM EST) Creatinine, Urine 23.13 mg/dL [facility] Microalbumin Urine <5.0 mg/L [facility] Microalbum Creatinine Ratio Ur TNP <30 ug/mg cr [facility] Comment:Unable to calculate albumin/creatinine ratio due to lowmicroalbumin or creatinine result. Urine (Urine, Random) 03/19/2024 10:50 AM EST 03/19/2024 1:11 PM EST Beth Alfredo LAB URINE ORDERABLES Final R esult Performing Organization Address [facility] Co de Phone Number [facility] [address] [place] [phone] * Hepatitis C Antibody with Reflex to HCV, RNA, Quantitative, Real-Time PCR (03/19/2024 10:50 AM EST) Pathologist [facility] Hepatitis C Antibody Nonreactive Nonreactive [facility] Comment:Antibodies to HCV no t detected; does not exclude early acuteHCV infection. Blood Venous blood specimen / Unknown 03/19/2024 10:50 AM EST 03/19/2024 1:00 PM EST Beth Alfredo LAB BLOOD ORDERABLES Final R esult Performing Organization Address [facility] Co de Phone Number [facility] [address] [place] [phone] * Chlamydia/N. Gonorrhoeae RNA, TMA, Urogenitial (03/19/2024 10:50 AM EST) [facility] CT PCR NOT DETECTED Not Detect. [facility] Comment:A not detected test result [...] psychologicalconsequences. NG PCR NOT DETECTED Not Detect. [facility] Comment:A not detected test result [...] AM EST 03/19/2024 1:11 PM EST Narrative [facility] - 03/19/2024 4:16 PM EST Urine Beth Alfredo DO LAB MICROBIOLOGY - GENERAL O RDERABLES Final Result Performing Organization Address [facility]/ZIP Co de Phone Number [facility] [address] [place] [phone] * Hepatitis B surface antigen, EIA (03/19/2024 10:50 AM EST) [facility] Hepatitis B Surface Ag Negative Negative [facility] Blood Venous blood specimen / Unknown 03/19/2024 10:50 AM EST 03/19/2024 1:00 PM EST Beth Alfredo DO LAB BLOOD ORDERABLES Final R esult Performing Organization Address [facility]/ZIP Co de Phone Number [facility] [address] [place] [phone] * RPR (Monitor) with Reflex to??Titer (03/19/2024 10:50 AM EST) Pathologist [facility] RPR (Monitor) w/Refl Titer NON-REACTI VE NON-REACT NOEL [facility] Comment:THIS TEST WAS PERFOR MED AT:[employer] [place] [phone] SNELL MD Rapid Plasma Reagin Ab Titer TNP [facility] Blood Venous blood specimen / Unknown 03/19/2024 10:50 AM EST 03/19/2024 1:00 PM EST us Beth Alfredo DO LAB BLOOD ORDERABLES Final R esult Performing Organization Address City/[facility]/ZIP Co de Phone Number [facility] [address] [place] [phone] * HIV-1/2 Antigen and Antibodies, Fourth Generation, with Reflexes (03/19/2024 10:50 AM EST) Pathologist [facility] HIV AB/AG Nonreactive Nonreactive [facility] Comment:HIV-1 p24 Ag and/or HIV-1/HIV-2 Ab not detected.A test result that is nonreactive does not exclude thepossibility of exposure to or infection with HIV-1 and/orHIV-2. Nonreactive results in this assay for individualswith prior exposure to HIV-1 and/or HIV-2 may be due toantigen and antibody levels that are below the limit ofdetection of this assay.The [employer] HIV Ag/Ab Combo assay result andsupplemental assay results should be interpreted inconjunction with the patient's clinical presentation,history and other laboratory results. If the results areinconsistent with clinical evidence, additional testing issuggested to confirm the result. Blood Venous blood specimen / Unknown 03/19/2024 10:50 AM EST 03/19/2024 1:00 PM EST us Beth Juni DO LAB BLOOD ORDERABLES Final R esult Performing Organization Address City/[facility]/ZIP Co de Phone Number [facility] [address] [place] [phone] * Hepatitis B Surface Antibody, Qualitative (03/19/2024 10:50 AM EST) Pathologist [facility] ~Hepatitis B Surface Antibody NONREACTIVE Nonreactive [facility] Comment:Nonreactive: < 8.00 mIU/mL Blood Venous blood specimen / Unknown 03/19/2024 10:50 AM EST 03/19/2024 1:00 PM EST Beth Alfredo DO LAB BLOOD ORDERABLES Final R esult [facility] [address] [place] [phone] * CBC (03/19/2024 10:50 AM EST) White Blood Count 7.9 4.8 - 10.8 X10*3/uL [facility] Red Blood Count 4.89 4.20 - 5.50 X10*6/uL [facility] Hemoglobin 13.8 12.0 - 16.0 g/dl [facility] Hematocrit 42.7 37.0 - 47.0 % [facility] Mean Corpuscular Volume 87.3 80.0 - 98.0 fL [facility] Mean Corpuscular Hemoglobin 28.2 27.0 - 33.0 pg [facility] Mean Corpuscular HGB Conc 32.3 31.0 - 35.0 g/dl [facility] Red Cell Distribution Width 13.6 11.0 - 16.0 % [facility] Platelet Count 228 160 - 400 X10*3/uL [facility] Mean Platelet Volume 11.4 9.4 - 12.3 fL [facility] NRBC Pct Auto 0.0 0.0 - 0.2 /100WBC [facility] NRBC Abs Auto 0.000 0.0 - 0.012 X10*3/uL [facility] Blood Venous blood specimen / Unknown 03/19/2024 10:50 AM EST 03/19/2024 1:00 PM EST Beth Alfredo DO LAB BLOOD ORDERABLES Final R esult [facility] [address] [place] [phone] * TSH (03/19/2024 10:50 AM EST) Thyroid Stimulating Hormone 1.19 0.32 - 4.0 uIU/mL [facility] Comment:TSH 3rd Generation ( [facility]) Blood Venous blood specimen / Unknown 03/19/2024 10:50 AM EST 03/19/2024 1:00 PM EST Beth Alfredo LAB BLOOD ORDERABLES Final R esult [facility] [address] [place] [phone] * T4, Free (03/19/2024 10:50 AM EST) Free T4 (Free Thyroxine) 0.98 0.71 - 1.85 ng/dL [facility] Blood Venous blood specimen / Unknown 03/19/2024 10:50 AM EST 03/19/2024 1:00 PM EST Beth Alfredo DO LAB BLOOD ORDERABLES Final R esult [facility] [address] [place] [address] [phone] * Hemoglobin A1c (03/19/2024 10:50 AM EST) Hemoglobin A1c 5.6 <6.0 % [facility] Comment:Hemoglobin A1C Refer ence Range Adults: 4.8 - 6.0 % Non diabetic: < 6.0 % Goal: < 7.0 %Additional Action Suggested: > 8.0 %Note: Hemoglobin A1c results are invalid for patients with abnormal amounts of HbF. Blood transfusions may impact the HbA1c concentration in the patient sample. Estimated Average Glucose 114 mg/dL [facility] Comment:eAG = Estimated ave rage glucose which is %A1C expressed asaverage glucose, using the formula of the K4A-NkacbhiDticury Glucose study (ADAG), Diabetes Care, Vol.31,#8,Oct. 2007 Blood Venous blood specimen / Unknown 03/19/2024 10:50 AM EST 03/19/2024 1:00 PM EST Beth Alfredo DO LAB BLOOD ORDERABLES Final R esult Performing Organization Address [facility] Co de Phone Number [facility] [address] [place] [phone] * (ABNORMAL) Hepatic Function Panel (03/19/2024 10:50 AM EST) Bilirubin, Total 0.4 0.0 - 1.0 mg/dL [facility] Bilirubin, Direct 0.1 0.0 - 0.5 mg/dL [facility] Aspartate Amino Transferase 25 5 - 31 U/L [facility] Alanine Aminotransferase 33(H) 0 - 31 U/L [facility] Total Protein 6.9 6.5 - 8.0 g/dL [facility] Albumin Level 4.1 3.5 - 5.0 g/dL [facility] Alkaline Phosphatase 49 39 - 117 U/L [facility] Blood Venous blood specimen / Unknown 03/19/2024 10:50 AM EST 03/19/2024 1:00 PM EST Beth Alfredo DO LAB BLOOD ORDERABLES Final R esult Performing Organization Address [facility] Co de Phone Number [facility] [address] [place] [phone] * (ABNORMAL) Lipid Panel, Standard (03/19/2024 10:50 AM EST) Triglycerides 156(H) <150 mg/dL [facility] Comment:Desirable Triglyceri de: less than 150 mg/dLBorderline High Triglyceride 150-199 mg/dLHigh Triglyceride: 200-499 mg/dLVery High Triglyceride: greater than or equal to 5OO mg/dL Cholesterol 147 <200 mg/dL [facility] Comment:Desirable Cholestero l: less than 200 mg/dLBorderline High Cholesterol: 200-239 mg/dLHigh Cholesterol: greater than 239 mg/dL LDL Cholesterol Calculated 74 <100 mg/dL [facility] Comment:Desirable LDL: less than 100 mg/dLNear Optimal/Above Optimal LDL: 110- 129 mg/dLBorderline High LDL: 130-159 mg/dLHigh LDL: 160-189 mg/dLVery High LDL: greater than or equal to 190 mg/dL HDL Cholesterol 42 >40 mg/dL [facility] Comment:Desirable HDL: great er than 40 mg/dL Note: This HDL assay may give artificially low results in patients with liver disease. Blood Venous blood specimen / Unknown 03/19/2024 10:50 AM EST 03/19/2024 1:00 PM EST us Beth Alfredo DO LAB BLOOD ORDERABLES Final R esult [facility] [address] [place] [phone] * (ABNORMAL) Basic Metabolic Panel (03/19/2024 10:50 AM EST) Sodium 141 135 - 145 mmol/L [facility] Potassium 3.7 3.3 - 5.1 mmol/L [facility] Chloride 108 96 - 108 mmol/L [facility] Carbon Dioxide 26 22 - 29 mmol/L [facility] Anion Gap 11(L) 12 - 20 [facility] Urea Nitrogen (BUN) 12 9 - 16 mg/dL [facility] Creatinine, Serum 0.69 0.5 - 1.4 mg/dL [facility] Estimated Glomerular Filt Rate >60 [facility] Comment:Chronic Kidney Disea se: Estimated GFR < 60 mL/min/1.04k2Ereuun Kidney Disease: Estimated GFR < 15 mL/min/1.73m2 Glucose 91 60 - 115 mg/dL [facility] Calcium 9.2 8.4 - 10.2 mg/dL [facility] Blood Venous blood specimen / Unknown 03/19/2024 10:50 AM EST 03/19/2024 1:00 PM EST us Beth Torresdarbyjose armando DO LAB BLOOD ORDERABLES Final R esult [facility] [address] [place] [phone] * CT Lung Screening Low dose (01/02/2024 3:51 PM EDT) Anatomical Region Laterality Modality Lung Computed Tomogra phy 01/02/2024 3:5 1 PM EDT Narrative 02/21/2024 1:14 PM EST ? [facility] ?[address] ?[place] [address] ? CT Scan Report ? Signed ? Patient: Natalie Aranda ?M ?? R#: [id number] ? : 1965 ?Acct:[id number] ? Age/Sex: 58 / F ?ADM Date: 01/02/24 ? Loc: HO.CT ? Attending Dr: Breanne José PA-C ? Ordering Physician: Breanne José PA-C ?? Date of Service: 01/02/24 ?? Procedure(s): CT lung screening ?? Accession Number(s): [id number] ? cc: Beth Alfredo DO; Breanne José [...] for CT CHEST LOW DOSE CANCER SCREENING ([id number]) ?? can be placed. ? Electronically signed by: ??Rufino Mancera MD ??02/21/2024 01:11 PM EST ? Dictated By: ?Rufino Mancera MD ? Signed By: ?<Electronically signed by Rufino Mancera MD in OV> ? 02/21/24 1311 ? DD/ 1551 ? TD/TT: 01/02/24 1556 ? Raisin Separator Operator: SS ? Procedure Note Donharpreetinterpreter, Image - 02/21/[address] [address] [address] Scan Report Signed Patient: Natalie Aranda R#: [id number] : 1965Acct:[id number] Age/Sex: 58 / FADM Date: 01/02/24 Loc: HO.CT Attending Dr: Breanne José PA-C Ordering Physician: Breanne José PA-C Date of Service: 01/02/24 Procedure(s): CT lung screening Accession Number(s): [id number] cc: Beth Alfredo DO; Breanne José PA-C [...] for CT CHEST LOW DOSE CANCER SCREENING ([id number]) can be placed. Electronically signed by: Rfuino Mancera MD 02/21/2024 01:11 PM EST Dictated By: Rufino Mancera MD Signed By: <Electronically signed by Rufino Mancera MD in OV> 02/21/24 1311 DD/ 1551 TD/TT: 01/02/24 1556 Raisin Separator Operator: [facility] External Provider IMG CT PROCEDURES Edited Result - Final * BI Mammogram Screening Tomosynthesis Bilateral (05/02/2023 10:58 AM EST) Anatomical Region Laterality Modality Breast Bilateral Mammography 05/02/2023 10:5 8 AM EST Narrative 05/23/2023 12:49 PM EDT ? [facility] ? [address] ?[place] [address] ? Mammography Report ? Signed ? Patient: Troy Roni,Natalie E ?M ?? R#: [id number] ? : 1965 ?Acct:[id number] ? Age/Sex: 58 / F ?ADM Date: 05/02/23 ? Loc: HO.MAMMO ? Attending Dr: Beth Alfredo DO ? Ordering Physician: Beth Alfredo DO ?Results: 2B ?? enign Findings ? Date of Service: 05/02/23 ?Follow Up: 1 Year From Orig ?? inal Mammogram ? Procedure(s): MM tomosynthesis screening BI ?? Accession Number(s): [id number] ? cc: Beth Alfredo DO ? EXAMINATION: ?? MM SCREENING DIGITAL BREAST TOMOSYNTHESIS, BILATERAL ? CLINICAL INFORMATION: ? Screening. Asymptomatic. ? COMPARISON: ?? Mammography: This study is compared with prior exams dating back to ?? 2019. ? TECHNIQUE: ?? Digital breast tomosynthesis is [...] 1245 ? DD/ 1058 ? TD/TT: ? Raisin Separator Operator: ? Procedure Note Nj, Image - 05/23/2023 [facility] [address] [place] [address] Mammography Report Signed Patient: Natalie Aranda R#: [id number] : 1965Acct:[id number] Age/Sex: 58 / FADM Date: 05/02/23 Loc: HO.MAMMO Attending Dr: Beth Alfredo DO Ordering Physician: Beth Alfredoults: 2B enign Findings Date of Service: 05/02/23Follow Up: 1 Year From Orig inal Mammogram Procedure(s): MM tomosynthesis screening BI Accession Number(s): [id number] cc: Beth Alfredo DO EXAMINATION: MM SCREENING [...] in OV> 05/23/23 1245 DD/ 1058 TD/TT: Raisin Separator Operator: Beth Alfredo DO IMG BI PROCEDURES Final Resu lt * THINPREP TIS PAP (06/02/2021 9:23 AM EDT) Clinical Information: None given [facility] COMMENT SEE COMMENT FOUNDAT[facility] ON [...] has been evaluated with computer assisted technology. [facility] 8 Fiction [employer] Nonfiction Prose Writer : SEE COMMENT [facility] Comment: BJ, CT(ASCP) CT screening location: [address] ??[address] Interpretation/R esult: Negative for intraepithelial lesion or malignancy. [facility] LMP: NONE GIVEN [facility]OUND[facility] Prev. BX: NONE GIVEN [facility] Prev. PAP: NONE GIVEN FOUNDAT[facility] ON LAB SYSTEM SOURCE: None given [facility] Statement Of Adequacy: SEE COMMENT [facility] Comment: Satisfactory for evaluation. Endocervical/transformation zone component absent. 06/02/2021 9:23 AM EDT Beth Alfredo DO LAB PATHOLOGY ORDERABLES Fin al Result Performing Organization Address [facility] de Phone Number [facility] [address] * HPV mRNA E6/E7 REFLEX TO HPV 16, 18/45 (06/02/2021 9:23 AM EDT) HPV nRNA E6/E7 Not Detected Not Detected [facility] Comment: Methodology: [employer]-Mediated Amplification This assay detects E6/E7 viral messenger RNA (mRNA) from 14 high-risk HPV types (16,18,31,33,35,39,45,51,52,56,58,59,66,68). ? The analytical performance characteristics of this assay have been determined by [employer]. The modifications have not been cleared or approved by the FDA. This assay has been validated pursuant to the CLIA regulations and is used for clinical purposes. ?? For additional information, please refer to http://education.[employer].Volly/faq/WVI543r9 (This link if provided for information/ educational purposes only.) 06/02/2021 9:23 AM EDT Beth Alfredo DO LAB CYTOLOGY ORDERABLES Nevin l Result Performing Organization Address [facility] de Phone Number [facility] [address] from Last 3 Months or Most Recently Relevant to Health Maintenance Insurance [facility] C3 Care Teams Sewer Bricklayer Relationship Specialty Start Date End Date Beth Alfredo DO [address] [place] [phone] PCP - General Family Medicine 11/25/14
--- OUTSIDE RECORDS SUMMARY | 2024-05-16 13:41 | XMS_ITS | Encounter Summary ---
Author Organization [employer] Address [address] [facility] [address] [place] [address] Care Team Providers Care Tile Setter Apprentice Name Role Phone Beth Alfredo DO Primary Care Provider Encounter Details Date Type Department Care Team (Late st Contact Info) Description 09/12/2022 Orders Only [facility] [address] [place] [address] Beth Mckinnon LPN Social History Tobacco Use [...] documented as of this encounter Care Teams Tile Setter Apprentice Relationship Specialty Start Date End Date Beth Alfredo DO [address] [place] [address] PCP - General Family Medicine 11/25/14 documented as of this encounter
== END 2024-05-16 11:12 | disposition home or self-care (01) ==
LOC: HO.MAMMO 11:11
PROVIDERS: PCP Family Medicine; Visit Provider Family Medicine
DX: Z12.31 Encounter for screening mammogram for malignant neoplasm of breast (principal)
CPT/HCPCS: 77063; 77067

== ENCOUNTER → 2024-05-16 11:16 | Outpatient (BNV) | payer MEDICAID, SELFPAY | PROVIDERS: PCP Family Medicine; Visit Provider Internal Medicine | DX: Z12.31 Encounter for screening mammogram for malignant neoplasm of breast (principal) | CPT/HCPCS: 77063; 77067 ==

== ENCOUNTER → 2024-10-27 09:58 | Outpatient (BNV) | payer MEDICAID, SELFPAY | PROVIDERS: PCP Family Medicine; Visit Provider Radiology Vascular & Interventional Radiology | DX: R07.9 Chest pain, unspecified (principal) | CPT/HCPCS: 71045 ==

== ENCOUNTER 2024-10-27 10:37 | Emergency (ER) | payer MEDICAID, SELFPAY ==
--- NOTE | 2024-10-27 | ECG_ITS ---
Test Reason : cp Blood Pressure : */* mmHG Vent. Rate : 73 BPM Atrial Rate : 73 BPM P-R Int : 160 ms QRS Dur : 92 ms QT Int : 366 ms P-R-T Axes : 75 -2 45 degrees QTcB Int : 403 ms Normal sinus rhythm Normal ECG When compared with ECG of 11-Apr-2020 19:53, No significant change was found Referred By: Generic ED Physician Electronically Signed By: VALENTÍN MOYER MD
--- NOTE | ~2024-10-27 | XR_ITS ---
CLINICAL HISTORY: CP 1 view chest x-ray Comparison: None provided Findings: No consolidation or effusion. Heart size is normal. S shaped thoracolumbar scoliosis is present. IMPRESSION: No acute cardiopulmonary abnormality. This document has been electronically signed by: Aidan Edwards on 10/27/2024 11:53:23
[2024-10-27 10:39] VITALS: BP 192/119; PULSE 93; RESP 22; TEMP 37; O2SAT 99; BMI 32.2
[2024-10-27 11:09] LABS: MANUAL DIFF FLAG NO
[2024-10-27 11:13] LABS: Hematocrit 44.6 % (37.0-47.0); Hemoglobin 15.0 g/dl (12.0-16.0); Imm Gran Abs Auto 0.03 X10*3/uL (0.00-0.03); Imm Gran Pct Auto 0.4 % (0.0-0.4); Lymphocytes Absolute Auto 2.4 X10*3/uL (1.2-4.9); Mean Corpuscular HGB Conc 33.6 g/dl (31.0-35.0); Mean Corpuscular Hemoglobin 28.6 pg (27.0-33.0); Mean Corpuscular Volume 85.0 fL (80.0-98.0); NRBC Abs Auto 0.000 X10*3/uL (0.0-0.012); NRBC Pct Auto 0.0 /100WBC (0.0-0.2); Platelet Count 214 X10*3/uL (160-400); Red Blood Count 5.25 X10*6/uL (4.20-5.50); White Blood Count 7.9 X10*3/uL (4.8-10.8)
[2024-10-27 11:24] LABS: Alanine Aminotransferase 30 U/L (0-31); Albumin Level 4.1 g/dL (3.5-5.0); Alkaline Phosphatase 57 U/L (39-117); Anion Gap 13 (12-20); Aspartate Amino Transferase 24 U/L (5-31); Blood Urea Nitrogen 15 mg/dL (9-16); Calcium 9.1 mg/dL (8.4-10.2); Carbon Dioxide 22 mmol/L (22-29); Chloride 109 mmol/L (96-108); Creatinine Clr Calc Pharmacy 105.3; Estimated Glomerular Filt Rate > 60; Magnesium 2.1 mg/dL (1.6-2.6); Potassium 3.9 mmol/L (3.3-5.1); Sodium 140 mmol/L (135-145); Total Protein 6.6 g/dL (6.5-8.0)
[2024-10-27 11:31] LABS: Troponin-I High Sensitivity < 2.7 ng/L (<3.5-17.0)
--- NOTE | 2024-10-27 17:12 | ED.CHESTPAIN ---
HPI - Chest Pain General Chief Complaint: Chest Pain Stated Complaint: pain in middle of chest Time Seen by Provider: 10/27/24 17:10 Source: patient Mode of arrival: ambulatory Limitations: no limitations History of Present Illness ED Provider: Kimberli Miranda APRN HPI narrative: This is a 59-year-old female who has a past medical history hypertension, hyperlipidemia, GERD, asthma, scoliosis presents the ER with complaints of 6 days of left-sided chest pain. Patient denies any injury or trauma. She reports that the chest pain is worsened with breathing, movement, palpation. No associated shortness of breath, cough, fevers, chills, leg swelling, leg pain, dizziness. Patient denies any recent travel, surgeries or hospitalizations. No history of HRT. She is quite vague but thinks 4 years ago she might have been on anticoagulant for a blood clot but cannot recall where her blood clot. She was on it for a few months and then it was discontinued by her PCP. Related Data Home Medications ?Medication ?Instructions ?Recorded ?Confirmed baclofen 20 mg tablet 20 mg PO DAILY 12/19/19 03/04/22 bupropion HCl 150 mg tablet,12 hr 150 mg PO BID 12/19/19 03/04/22 sustained-release (Wellbutrin SR) fluticasone propionate 110 1 puff inhalation BID 12/19/19 03/04/22 mcg/actuation HFA aerosol inhaler (Flovent HFA) gabapentin 600 mg tablet 600 mg PO BID 12/19/19 03/04/22 hydrochlorothiazide 25 mg tablet 25 mg PO DAILY 12/19/19 03/04/22 albuterol sulfate 90 mcg/actuation 2 puff inhalation Q4-6H PRN 03/01/22 03/04/22 aerosol inhaler (ProAir HFA) Wheezing Previous Rx's ?Medication ?Instructions ?Recorded atorvastatin 20 mg tablet 20 mg PO DAILY 60 days #60 tabs 12/19/19 docusate sodium 100 mg capsule 100 mg PO BEDTIME #90 caps 07/19/21 methylcellulose (laxative) 500 mg 500 mg PO DAILY #90 tabs 07/19/21 tablet (Citrucel) omeprazole 40 mg capsule,delayed 40 mg PO BID #180 caps 03/18/22 release sennosides 8.6 mg tablet (Natural 17.2 mg (2 x 8.6 mg) PO BEDTIME 03/18/22 Senna Laxative) constipation #180 tabs sucralfate 1 gram tablet 1 g PO BEDTIME #30 tabs 07/06/22 cholecalciferol (vitamin D3) 50 50 mcg PO DAILY #90 caps 08/31/22 mcg (2,000 unit) capsule cyanocobalamin (vitamin B-12) 1,000 mcg PO DAILY #90 caps 08/31/22 1,000 mcg capsule linaclotide 145 mcg capsule 145 mcg PO DAILY #90 caps 08/31/22 (Linzess) cyclobenzaprine 10 mg tablet 10 mg PO TID PRN muscle spasm #15 10/27/24 tabs lidocaine 5 % topical patch 1 patch topical DAILY #15 ea 10/27/24 (Lidoderm) naproxen 500 mg tablet 500 mg PO BID PRN pain #20 tabs 10/27/24 Allergies Allergy/AdvReac Type Severity Reaction Status Date / Time No Known Allergies Allergy Verified 10/27/24 10:43 Review of Systems Review of Systems: Yes all other systems are reviewed and are negative Constitutional: Constitutional: Reports no additional constitutional complaints, Denies body ache(s), Denies chills, Denies fever(s), Denies headache(s) and Denies weakness Eyes: Eyes: Reports no additional eye complaints and Denies change in vision ENT: Reports system reviewed and no additional complaints, except as documented, Denies dizziness, Denies headache(s), Denies nasal congestion, Denies nasal discharge and Denies neck pain Cardiovascular: Cardiovascular: Reports no additional cardiovascular complaints, Reports chest pain, Denies leg edema and Denies dyspnea Respiratory: Respiratory: Reports no additional respiratory complaints, Denies cough and Denies dyspnea Gastrointestinal: Gastrointestinal: Reports no additional gastrointestinal complaints, Denies abdominal pain, Denies diarrhea, Denies nausea and Denies vomiting Genitourinary: Genitourinary: Reports no additional female genitourinary complaints and Denies urinary incontinence Musculoskeletal: Musculoskeletal: Reports no additional musculoskeletal complaints, Denies back pain, Denies arthralgias, Denies joint swelling, Denies neck pain, Denies numbness and Denies tingling Integumentary/Breasts: Skin/Breast: Reports system reviewed and no additional complaints, except as docu and Denies rash Neurologic: Reports system reviewed and no additional complaints, except as documented, Denies Abnormal speech present, Denies dizziness, Denies headache(s), Denies numbness, Denies tingling and Denies weakness PMFSH Past Medical History Attestation statement: The following information was validated with the patient. Source: old records reviewed and nursing notes reviewed Medical History Gastroesophageal reflux disease Tubular adenoma of colon Nicotine dependence, cigarettes, uncomplicated Hx of sleep apnea Back pain Depression HTN (hypertension) Hyperlipidemia Scoliosis Chest pain Palpitations Surgical History History of bilateral oophorectomy (~2010) History of colonoscopy History of esophagogastroduodenoscopy (EGD) History of surgery on left wrist (~2014) History of bilateral tubal ligation Family History Family History Father HTN (hypertension) Mother HTN (hypertension) Maternal Grandfather Heart disease Social History Social History Alcohol intake: current Alcohol intake frequency: holidays/special occasions only Patient Tobacco Use Status: Current everyday Tobacco user Tobacco use type: Cigarette Cigarette Packs Per Day: 1 Cigarettes Per Day: 12 Years Smoked: (onset 22yo, 1/2-1ppd x 35yrs, 25pyh) Advance Directives: No Advance Directives Information Provided: Yes Current occupational status: disabled Current occupation: rt hand Physical Exam Vital Signs: Vital Signs: Last Vital Signs Temp 98.6 F 10/27/24 10:39 Pulse 93 10/27/24 10:39 Resp 22 H 10/27/24 10:39 BP 153/78 H 10/27/24 17:53 Pulse Ox 99 10/27/24 10:39 O2 Del Method Room Air 10/27/24 10:39 BMI result Body Mass Index 32.2 Const: General: cooperative, healthy appearing, comfortable and no acute distress Orientation/consciousness: patient oriented x3 Limitations: no limitations HEENT: Head: Yes normal to inspection Ears: hearing grossly normal bilaterally General nose exam: Normal external nose present Face and sinus: Yes normal facial exam Mouth: Normal oral and palatal mucosa present Throat: Yes posterior oropharynx normal Eyes: General: appearance normal, both eyes and all related structures Pupils: Equal, round and reactive pupils present Neck: Neck: Yes normal visual inspection Chest: Chest palpation & inspection: normal inspection of the chest and tenderness pectoral muscle on the left Resp: Effort & Inspection: normal respiratory effort Auscultation: clear to auscultation bilaterally Cardio: Rate: regular rate Rhythm: regular rhythm Peripheral pulses: Peripheral pulses 2+ throughout GI: Inspection: Yes normal to inspection Palpation (GI): Soft to palpation and nontender Auscultation: normal bowel sounds Back/Spine/Pelvis: Thoracic/Lumbar Spine: thoracic and lumbar spine normal to inspection Skin: General skin exam: no rashes or lesions noted Neuro: General: patient oriented x3, no focal motor deficits and normal sensation to monofilament Cranial nerves: Yes Equal, round and reactive pupils present Cognition (Neuro): normal cognition Speech: No Abnormal speech present Gait exam (Neuro): Normal gait present Motor exam (neuro): 5/5 motor strength present throughout Extrem: General: Yes normal to inspection, Yes no calf tenderness and Yes normal gait Course Course Course Narrative: Blood pressure has improved. Patient's labs are unremarkable. EKG is nonischemic. Chest x-ray shows no acute finding. Exam is consistent with musculoskeletal pain. Patient will be discharged home with supportive measures and recommendation to follow up outpatient with the primary care doctor. Reviewed worrisome signs and symptoms of when to return to the emergency room. Comfortable plan for discharge home Medications Administered Discontinued Medications Generic Name Dose Route Start Last Admin Trade Name Josemanuelq PRN Reason Stop Dose Admin Diazepam 2 mg 10/27/24 17:27 10/27/24 17:51 Diazepam 2 Mg Tablet PO 10/27/24 17:28 2 mg ONCE ONE Administration Hydrochlorothiazide 25 mg 10/27/24 17:29 10/27/24 17:53 Hydrochlorothiazide 25 Mg Tablet PO 10/27/24 17:30 25 mg ONCE ONE Administration Protocol Ketorolac Tromethamine 15 mg 10/27/24 17:27 10/27/24 17:52 Ketorolac Tromethamine 15 Mg/Ml Vial IM 10/27/24 17:28 15 mg ONCE ONE Administration Medical Decision Making Medical Decision Making MDM Narrative: This is a 59-year-old female who has a past medical history hypertension, hyperlipidemia, GERD, asthma, scoliosis presents the ER with complaints of 6 days of left-sided chest pain. Patient denies any injury or trauma. She reports that the chest pain is worsened with breathing, movement, palpation. No associated shortness of breath, cough, fevers, chills, leg swelling, leg pain, dizziness. Patient denies any recent travel, surgeries or hospitalizations. No history of HRT. She is quite vague but thinks 4 years ago she might have been on anticoagulant for a blood clot but cannot recall where her blood clot. She was on it for a few months and then it was discontinued by her PCP. On exam patient has pain on palpation over the left chest wall which is worsened with arm movement and movement of the chest as well as palpation. Her lungs are clear. There is no skin abnormality noted. She is hypertensive but did not take her morning blood pressure medication. Her other vitals are normal Will obtain labs, chest x-ray, EKG Will give patient her blood pressure medication. Will provide analgesia Likely musculoskeletal Differential Diagnosis Differential Diagnoses: The differential diagnosis associated with the presentation includes Musculoskeletal pain Low suspicion for aortic dissection with gradual onset of symptoms Low suspicion for ACS with nonischemic EKG and flat troponin with symptoms greater than 6 days which are nonexertional in nature Low suspicion for PE with no tachypnea, tachycardia, hypoxia, clinical findings concerning for DVT Admission/Observation Consideration of admission/observation: Escalation of care including admission/observation considered Heart score is 2 for age and history of hypertension, hyperlipidemia. Low risk. Can follow up outpatient Lab Data MDM Lab Attestation statement: I reviewed the patient's lab results. 10/27/24 11:00 10/27/24 11:00 Labs: Lab Results 10/27/24 10/27/24 Range/Units 11:00 17:40 WBC 7.9 (4.8-10.8) X10*3/uL RBC 5.25 (4.20-5.50) X10*6/uL Hgb 15.0 (12.0-16.0) g/dl Hct 44.6 (37.0-47.0) % MCV 85.0 (80.0-98.0) fL MCH 28.6 (27.0-33.0) pg MCHC 33.6 (31.0-35.0) g/dl RDW 13.3 (11.0-16.0) % Plt Count 214 (160-400) X10*3/uL MPV 11.0 (9.4-12.3) fL Immature Gran % (Auto) 0.4 (0.0-0.4) % Neut % (Auto) 61.4 (45-73) % Lymph % (Auto) 29.8 (20-40) % Archuleta % (Auto) 7.1 (2-11) % Eos % (Auto) 0.9 (0-4) % Baso % (Auto) 0.4 (0-2) % Lymph # (Auto) 2.4 (1.2-4.9) X10*3/uL Archuleta # (Auto) 0.6 (0.1-1.2) X10*3/uL Eos # (Auto) 0.1 (0.0-0.4) X10*3/uL Baso # (Auto) 0.0 (0.0-0.2) X10*3/uL Abs Immat Gran (auto) 0.03 (0.00-0.03) X10*3/uL Absolute Neuts (auto) 4.9 (2.0-8.3) x10*3/uL Absolute Nucleated RBC 0.000 (0.0-0.012) X10*3/uL Nucleated RBC % (auto) 0.0 (0.0-0.2) /100WBC PT 11.5 (10.9-12.4) SEC INR 1.0 (0.9-1.1) D-Dimer High Sensitivty < 150 NG/ML Sodium 140 (135-145) mmol/L Potassium 3.9 (3.3-5.1) mmol/L Chloride 109 H (96-108) mmol/L Carbon Dioxide 22 (22-29) mmol/L Anion Gap 13 (12-20) BUN 15 (9-16) mg/dL Creatinine 0.66 (0.5-1.4) mg/dL Estim Creat Clear Calc 105.3 Estimated GFR > 60 Random Glucose 118 H (60-115) mg/dL Calcium 9.1 (8.4-10.2) mg/dL Magnesium 2.1 (1.6-2.6) mg/dL Total Bilirubin 0.3 (0.0-1.0) mg/dL AST 24 (5-31) U/L ALT 30 (0-31) U/L Alkaline Phosphatase 57 (39-117) U/L Troponin I High Sens < 2.7 (<3.5-17.0) ng/L Total Protein 6.6 (6.5-8.0) g/dL Albumin 4.1 (3.5-5.0) g/dL Independent Interpretation I performed an independent interpretation of an: EKG and Plain X-Ray Interpretation: I independently viewed the chest x-ray and agree with the radiology report I independently viewed the EKG which shows normal sinus rhythm with a rate of 73, normal TN, normal QRS, normal QT Radiology Impression Discussion of test interpretation with radiology: I have reviewed the radiologist's reading. Radiologist Impression: [place] [id number] XRay Report Signed Patient: Natalie Aranda MR#: [id number] : 1965 Acct:[id number] Age/Sex: 59 / F ADM Date: 10/27/24 Loc: .ED Attending Dr: Ordering Physician: Generic ED Physician Date of Service: 10/27/24 Procedure(s): XR chest 1V Accession Number(s): [id number] cc: Generic ED Physician; Beth Alfredo DO~ CLINICAL HISTORY: CP 1 view chest x-ray Comparison: None provided Findings: No consolidation or effusion. Heart size is normal. S shaped thoracolumbar scoliosis is present. IMPRESSION: No acute cardiopulmonary abnormality. This document has been electronically signed by: Aidan Edwards on 10/27/2024 11:53:23 Independent Historian Clinical information obtained from an independent historian. History obtained from or confirmed by: Other Here with Uncle Discharge Plan Discharge Clinical Impression: Chest pain Patient Disposition: Home, Self-Care Instructions: Chest Pain (ED) Additional Instructions: All your test?results from your emergency department visit today are reassuring.? Todos los resultados de las pruebas de castillo visita de rito al servicio de urgencias son tranquilizadores. Follow up with your primary care provider. Return to the emergency department immediately?if your symptoms?were to worsen or if you were to develop any shortness of breath, difficulty breathing, chest pain, dizziness, lightheadedness, back pain, abdominal pain, fever, chills, or any other symptoms. Mis?seguimiento?con castillo m?dico de atenci?n primaria. Acuda inmediatamente al servicio de urgencias si wanda s?ntomas empeoran o si presenta falta de aliento, dificultad para respirar, dolor tor?cico, mareos, aturdimiento, dolor de espalda, dolor abdominal, fiebre, escalofr?os o cualquier otro s?ntoma. Prescriptions: New naproxen 500 mg tablet 500 mg PO BID PRN (Reason: pain) Qty: 20 0RF cyclobenzaprine 10 mg tablet 10 mg PO TID PRN (Reason: muscle spasm) Qty: 15 0RF lidocaine [Lidoderm] 5 % adhesive patch,medicated 1 patch topical DAILY Qty: 15 0RF Rx Instructions: leave on most painful area for up to 12 hrs No Action albuterol sulfate [ProAir HFA] 90 mcg/actuation HFA aerosol inhaler 2 puff INHALATION Q4-6H PRN (Reason: Wheezing) baclofen 20 mg tablet 20 mg PO DAILY gabapentin 600 mg tablet 600 mg PO BID Flovent HFA 110 mcg/actuation HFA aerosol inhaler 1 puff inhalation BID hydrochlorothiazide 25 mg tablet 25 mg PO DAILY bupropion HCl [Wellbutrin SR] 150 mg tablet sustained-release 12 hr 150 mg PO BID atorvastatin 20 mg tablet 20 mg PO DAILY 60 Days Qty: 60 3RF docusate sodium 100 mg capsule 100 mg PO BEDTIME Qty: 90 3RF Rx Instructions: vipul candice cApsula cada noche Citrucel 500 mg tablet 500 mg PO DAILY Qty: 90 2RF Rx Instructions: vipul un comprimido todos los mota con un vaso de agua omeprazole 40 mg capsule,delayed release(DR/EC) 40 mg PO BID Qty: 180 2RF sennosides [Natural Senna Laxative] 8.6 mg tablet 17.2 mg PO BEDTIME Qty: 180 3RF sucralfate 1 gram tablet 1 g PO BEDTIME Qty: 30 1RF cholecalciferol (vitamin D3) 50 mcg (2,000 unit) capsule 50 mcg PO DAILY Qty: 90 3RF cyanocobalamin (vitamin B-12) 1,000 mcg capsule 1,000 mcg PO DAILY Qty: 90 2RF Linzess 145 mcg capsule 145 mcg PO DAILY Qty: 90 2RF Referrals: Beth Alfredo DO [Primary Care Provider, Internal Medicine] Print Language: Afghan
[2024-10-27 17:53] VITALS: BP 153/78
[2024-10-27 18:01] LABS: D Dimer High Sensitivity < 150 NG/ML; INTERNATIONAL NORM RATIO 1.0 (0.9-1.1); Prothrombin Time 11.5 SEC (10.9-12.4)
[2024-10-27 18:37] VITALS: BP 153/78; PULSE 50; RESP 16; TEMP 37
== END 2024-10-27 18:43 | disposition home or self-care (01) ==
PROVIDERS: Nurse Practitioner Family; Emergency Provider Emergency Medicine; PCP Family Medicine
DX: R07.9 Chest pain, unspecified (principal); I10 Essential (primary) hypertension; E78.5 Hyperlipidemia, unspecified; M41.9 Scoliosis, unspecified; Z79.899 Other long term (current) drug therapy
CPT/HCPCS: 36415; 71045; 80053; 83735; 84484; 85025; 85379; 85610; 93005; 96372; 99284; J1885

== ENCOUNTER → 2024-10-27 10:47 | Outpatient (BNV) | payer MEDICAID, SELFPAY | PROVIDERS: Emergency Provider Emergency Medicine; PCP Family Medicine; Visit Provider Internal Medicine Cardiovascular Disease | DX: R07.89 Other chest pain (principal) | CPT/HCPCS: 93010 ==

== ENCOUNTER 2025-01-29 08:35 | Outpatient (REF) | payer MEDICAID, SELFPAY ==
--- NOTE | ~2025-01-29 | CT_ITS ---
EXAMINATION: CT LOW-DOSE SCREENING CHEST WITHOUT CONTRAST CLINICAL INFORMATION: 60-year-old female, current smoker, 37 pack years, lung cancer screening. COMPARISON: 01/02/2024, 07/08/2022. TECHNIQUE: Multidetector volumetric CT imaging of the chest is performed on a Siemens SOMATOM Definition scanner without contrast using low dose technique. Additional 2D coronal and sagittal reformatted images and axial 3D maximum intensity projection (MIP) images are generated on the CT workstation. This CT examination was performed using dose optimization techniques as appropriate, variously including the following: *Automated exposure control *Adjustment of mA and/or kV according to patient size (this includes techniques or standardized protocols for targeted exams where dose is matched to indication/reason for exam; i.e. extremities or head) *Use of iterative reconstruction technique FINDINGS: PULMONARY NODULES: Two tiny 2 mm nodules in the lateral right apex, subpleural, unchanged (series 14, images 25-26). There are a few scattered tiny 2 mm micronodules, entirely unchanged. Previously seen 3 mm subpleural nodule in the right apex posteriorly is not well seen on today's examination. 3 mm nodule in the posterior right upper lobe (series 14, image 32), most likely endobronchial mucous plug. There are no new or enlarging pulmonary nodules. LUNGS: There is mild paraseptal emphysema with upper lobe predominance. There are mild groundglass changes in the subpleural zones of both upper lobes and the left lower lobe nonspecific, similar to the prior examination. There are no consolidations. There is no evidence of interstitial lung disease. The small airways appear grossly normal. No bronchiectasis. No pleural effusion or pneumothorax. MEDIASTINUM: Normal-appearing thyroid. No mass or mediastinal lymphadenopathy present. Heart size is normal. There is no pericardial effusion. Aorta is mildly calcified but normal in caliber. There is no aneurysm. The pulmonary trunk is normal in size. There is a small type I hiatus hernia present. CORONARY ARTERY CALCIFICATION: Mild. CHEST WALL/AXILLA: No mass or abnormal lymph nodes present. UPPER ABDOMEN: Imaged upper abdominal contents appear normal allowing for low-dose noncontrast technique. OSSEOUS STRUCTURES: There is no suspicious lytic or blastic bone lesion. There is a biconvex thoracolumbar scoliosis present along with degenerative changes, similar to the prior. CT/CT lung screening IMPRESSION: 1. There are a few scattered pulmonary micronodules measuring up to 3 mm. There is no new or enlarging pulmonary nodule evident. 2. There is mild paraseptal emphysema. There are nonspecific subpleural groundglass changes in both upper lobes and the left lower lobe, unchanged from the prior examination. 3. There is no definite active lung disease. ASSESSMENT: 1. Lung-RADS Category 2: Benign appearance or behavior of nodules. 2. Lung-RADS Category S: None. RECOMMENDATION: Continued routine annual low-dose CT lung screening in 1 year is recommended. An order for CT CHEST LOW DOSE CANCER SCREENING ([id number]) can be placed. Electronically signed by: Kamlesh Hernandez MD 01/29/2025 10:19 AM RACHELL
--- OUTSIDE RECORDS SUMMARY | 2025-01-29 16:18 | XMS_ITS | Encounter Summary ---
Author Organization [employer] Address [address] [place] [address] Care Team Providers Care Youth Support Worker Name Role Phone Nadya Alfredofer Primary Care Provider + [phone] Encounter Details Date Type Department Care Team ([facility] st Contact Info) Description 03/24/2023 Orders Only [facility] [address] [place] [address] Beth Mckinnon LPN Social History Tobacco Use [...] documented as of this encounter Care Teams Youth Support Worker Relationship Specialty Start Date End Date Beth Alfredo DO [address] [place] [id number] PCP - General Family Medicine 11/25/14 documented as of this encounter
--- OUTSIDE RECORDS SUMMARY | 2025-01-29 16:18 | XMS_ITS | Encounter Summary ---
Author Organization [employer] Address [address] [place] [address] Care Team Providers Care Supervisor Gear Repair Name Role Phone MelissaBeth mercado Primary Care Provider [phone] Encounter Details Date Type Department Care Team ([facility] Contact Info) Description 01/29/2025 Orders Only [facility] External Provider, [facility] Social History Tobacco Use Types Packs/Day Years Used Date Smoking Tobacco: Every Day Cigarettes 1 30 Smokeless Tobacco: Never Depression Answer Date Recorded Patient Health Questionnaire-9 Score 0 05/31/2022 Housing Stability Answer Date Recorded What is your housing situation today? I have kerrynorma wheeler 03/12/[address] you [...] Procedure Name Priority Date/Time Associated Diagnosis Comments LDCT LUNG SCREENING Routine 01/29/2025 9 :14 AM EST documented in this encounter Results * CT Lung Screening Low dose (01/29/2025 9:14 AM EST) Anatomical Region Laterality Modality Lung Computed Tomogra phy 01/29/2025 9:14 AM EST Narrative 01/29/2025 10:22 AM EST [place] [address] CT Scan Report Signed Patient: Natalie Aranda Fauzia Nielson#: [id number] : 1965 Acct:[id number] Age/Sex: 60 / F ADM Date: 01/29/25 Loc: HO.CT Attending Dr: Breanne José PA-C Ordering Physician: Breanne José PA-C Date of Service: 01/29/25 Procedure(s): CT lung screening Accession Number(s): [id number] cc: Beth Alfredo DO; Breanne José PA-C Report Number: [id number]: Total DLP = 120.00 mGy-cm Reason for Exam: F17.210 - Nicotine dependence, cigarettes, uncomplicated EXAMINATION: CT LOW-DOSE SCREENING CHEST WITHOUT CONTRAST CLINICAL INFORMATION: 60-year-old female, current smoker, 37 pack years, lung cancer screening. COMPARISON: 01/02/2024, 07/08/2022. TECHNIQUE: Multidetector volumetric CT imaging of the [...] or head) *Use of iterative reconstruction technique FINDINGS: PULMONARY NODULES: Two tiny 2 mm nodules in the lateral right apex, subpleural, unchanged (series 14, images 25-26). There are a few scattered tiny 2 mm micronodules, entirely unchanged. Previously seen 3 mm subpleural nodule in the right apex posteriorly is not well seen on today's examination. 3 mm nodule in the posterior right upper lobe (series 14, image 32), most likely endobronchial mucous plug. There are no new or enlarging pulmonary nodules. LUNGS: There is mild paraseptal emphysema with upper lobe predominance. There are mild groundglass changes in the subpleural zones of both upper lobes and the left lower lobe nonspecific, similar to the prior examination. There are no consolidations. There is no evidence of interstitial lung disease. The small airways appear grossly normal. No bronchiectasis. No pleural effusion or pneumothorax. MEDIASTINUM: Normal-appearing thyroid. No mass or mediastinal lymphadenopathy present. Heart size is normal. There is no pericardial effusion. Aorta is mildly calcified but normal in caliber. There is no aneurysm. The pulmonary trunk is normal in size. There is a small type I hiatus hernia present. CORONARY ARTERY CALCIFICATION: Mild. CHEST WALL/AXILLA: No mass or abnormal lymph nodes present. UPPER ABDOMEN: Imaged upper abdominal contents appear normal allowing for low-dose noncontrast technique. OSSEOUS STRUCTURES: There is no suspicious lytic or blastic bone lesion. There is a biconvex thoracolumbar scoliosis present along with degenerative changes, similar to the prior. CT/CT lung screening IMPRESSION: 1. There are a few scattered pulmonary micronodules measuring up to 3 mm. There is no new or enlarging pulmonary nodule evident. 2. There is mild paraseptal emphysema. There are nonspecific subpleural groundglass changes in both upper lobes and the left lower lobe, unchanged from the prior examination. 3. There is no definite active lung disease. ASSESSMENT: 1. Lung-RADS Category 2: Benign appearance or behavior of nodules. 2. Lung-RADS Category S: None. RECOMMENDATION: Continued routine annual low-dose CT lung screening in 1 year is recommended. An order for CT CHEST LOW DOSE CANCER SCREENING ([id number]) can be placed. Electronically signed by: Kamlesh Hernandez MD 01/29/2025 10:19 AM [facility] [place]ict[place] By: Kamlesh Hernandez MD Signed By: <Electronically signed by Kamlesh Hernandez MD in OV> 01/29/25 1019 DD/ 0914 TD/TT: 01/29/25 0944 Supervisor Mending: Procedure Note Donotuseinterpreter, Image - 01/29/[address] [place] [address] [address] Scan Report Signed Patient: Natalie Aranda R#: [id number] : 1965Acct:[id number] Age/Sex: 60 / FADM Date: 01/29/25 Loc: HO.CT Attending Dr: Breanne José PA-C Ordering Physician: Breanne José PA-C Date of Service: 01/29/25 Procedure(s): CT lung screening Accession Number(s): [id number] cc: Beth Alfredo DO; Breanne José PA-C Report Number: [id number]: Total DLP = 120.00 mGy-cm Reason for Exam: F17.210 - Nicotine dependence, cigarettes, uncomplicated EXAMINATION: CT LOW-DOSE SCREENING CHEST WITHOUT CONTRAST CLINICAL INFORMATION: 60-year-old female, current smoker, 37 pack years, lung cancer screening. COMPARISON: 01/02/2024, 07/08/2022. TECHNIQUE: Multidetector volumetric CT imaging of the [...] or head) *Use of iterative reconstruction technique FINDINGS: PULMONARY NODULES: Two tiny 2 mm nodules in the lateral right apex, subpleural, unchanged (series 14, images 25-26). There are a few scattered tiny 2 mm micronodules, entirely unchanged. Previously seen 3 mm subpleural nodule in the right apex posteriorly is not well seen on today's examination. 3 mm nodule in the posterior right upper lobe (series 14, image 32), most likely endobronchial mucous plug. There are no new or enlarging pulmonary nodules. LUNGS: There is mild paraseptal emphysema with upper lobe predominance. There are mild groundglass changes in the subpleural zones of both upper lobes and the left lower lobe nonspecific, similar to the prior examination. There are no consolidations. There is no evidence of interstitial lung disease. The small airways appear grossly normal. No bronchiectasis. No pleural effusion or pneumothorax. MEDIASTINUM: Normal-appearing thyroid. No mass or mediastinal lymphadenopathy present. Heart size is normal. There is no pericardial effusion. Aorta is mildly calcified but normal in caliber. There is no aneurysm. The pulmonary trunk is normal in size. There is a small type I hiatus hernia present. CORONARY ARTERY CALCIFICATION: Mild. CHEST WALL/AXILLA: No mass or abnormal lymph nodes present. UPPER ABDOMEN: Imaged upper abdominal contents appear normal allowing for low-dose noncontrast technique. OSSEOUS STRUCTURES: There is no suspicious lytic or blastic bone lesion. There is a biconvex thoracolumbar scoliosis present along with degenerative changes, similar to the prior. CT/CT lung screening IMPRESSION: 1. There are a few scattered pulmonary micronodules measuring up to 3 mm. There is no new or enlarging pulmonary nodule evident. 2. There is mild paraseptal emphysema. There are nonspecific subpleural groundglass changes in both upper lobes and the left lower lobe, unchanged from the prior examination. 3. There is no definite active lung disease. ASSESSMENT: 1. Lung-RADS Category 2: Benign appearance or behavior of nodules. 2. Lung-RADS Category S: None. RECOMMENDATION: Continued routine annual low-dose CT lung screening in 1 year is recommended. An order for CT CHEST LOW DOSE CANCER SCREENING ([id number]) can be placed. Electronically signed by: Kamlesh Hernandez MD 01/29/2025 10:19 AM [facility] [place] Dictated By: Kamlesh Hernandez MD Signed By: <Electronically signed by Kamlesh Hernandez MD in OV> 01/29/25 1019 DD/ TD/TT: 01/29/2544 Supervisor Mending: [facility] External Provider IMG CT PROCEDURES Edited Result - Final documented in this encounter Visit Diagnoses Not on filedocumented in this encounter Additional Health Concerns Assessment Noted Time PHQ-9 Depression Total Score: 0 06/01/19 23 10:02 AM EDT documented as of this encounter Care Teams Supervisor Gear Repair Relationship Specialty Start Date End Date Beth Alfredo DO [address] [place] [address] PCP - General Family Medicine 11/25/14 documented as of this encounter
--- OUTSIDE RECORDS SUMMARY | 2025-01-29 16:19 | XMS_ITS | Encounter Summary ---
Author Organization [employer] Address [address] [facility] [address] [place] [address] Care Team Providers Care Manager Financial Reporting Name Role Phone Nadya Alfredofer Primary Care Provider [phone] Encounter Details Date Type Department Care Team (Late st Contact Info) Description 04/04/2022 Orders Only [facility]ED[facility] [address] [place] [address] Beth Mckinnon LPN Social History Tobacco Use [...] AM EST Narrative 05/02/2022 12:54 PM EST [facility] [address] [place] [address] Mammography Report Signed Patient: Natalie Aranda#: [id number] : 1965 Acct:[id number] Age/Sex: 57 / F ADM Date: 04/29/22 Loc: HO.MAMMO Attending Dr: Beth Alfredo DO Ordering Physician: Beth Alfredo DO Results: 1N egative Date of Service: 04/29/22 Follow Up: 1 Year From Orig inal Mammogram Procedure(s): MM tomosynthesis screening BI Accession Number(s): [id number] cc: Beth Alfredo DO EXAMINATION: MM SCREENING [...] in OV> 05/02/22 1251 DD/ 0915 TD/TT: Chief Legal Officer: ROSALINA Procedure Note Donotuseinterpreter, Image - 05/02/2022 [facility] [address] [place], [place] [address] Mammography Report Signed Patient: TroyNatalie Carpenter R#: [id number] : 1965Acct:[id number] Age/Sex: 57 / FADM Date: 04/29/22 Loc: HO.MAMMO Attending Dr: Beth Alfredo DO Ordering Physician: Beth Alfredoults: 1N egative Date of Service: 04/29/22Follow Up: 1 Year From Orig inal Mammogram Procedure(s): MM tomosynthesis screening BI Accession Number(s): [id number] cc: Beth Alfredo DO EXAMINATION: MM SCREENING [...] in OV> 05/02/22 1251 DD/ 0915 TD/TT: Chief Legal Officer: ROSALINA [facility] External Provider IMG BI PROCEDURES Edited Result - Final documented in this encounter Visit Diagnoses Not on filedocumented in this encounter Care Teams Manager Financial Reporting Relationship Specialty Start Date End Date Beth Alfredo DO [address] [place] [address] PCP - General Family Medicine 11/25/14 documented as of this encounter
--- OUTSIDE RECORDS SUMMARY | 2025-01-29 16:19 | XMS_ITS | Encounter Summary ---
Author Organization [employer] Address [address] [place] [address] [address] [place] [address] Care Team Providers Care Patternmaker Bench Name Role Phone Beth Alfredo DO Primary Care Provider [phone] Encounter Details Date Type Department Care Team ([facility] st Contact Info) Description 08/05/2022 Abstract [facility] [address] [place], [place] [id number] Beth Alfredo DO [address] [place], [place] [id number] Social History Tobacco Use Types Packs/Day Years [...] documented as of this encounter Care Teams Patternmaker Bench Relationship Specialty Start Date End Date Beth Alfredo DO [address] [place], [place] [phone] PCP - General Family Medicine 11/25/14 documented as of this encounter
--- OUTSIDE RECORDS SUMMARY | 2025-01-29 16:19 | XMS_ITS | Encounter Summary ---
Author Organization [employer] Address [address] [facility] [address] [place] [address] Care Team Providers Care Human Resources Assistant Manager Name Role Phone Beth Alfredo DO Primary Care Provider [phone] Encounter Details Date Type Department Care Team (Late st Contact Info) Description 09/12/2022 Orders Only [facility] & PEDS [address] [place] [address] Beth Mckinnon LPN Social History Tobacco Use [...] documented as of this encounter Care Teams Human Resources Assistant Manager Relationship Specialty Start Date End Date Beth Alfredo DO [address] [place] [address] PCP - General Family Medicine 11/25/14 documented as of this encounter
--- OUTSIDE RECORDS SUMMARY | 2025-01-29 16:19 | XMS_ITS | Clinical Summary ---
Author Organization [employer] Address [address] [facility] 7t [place] [address] Care Team Providers Care Residential Instructor Name Role Phone Beth Alfredo Primary Care Provider [phone] Allergies No known active allergies Medications Misc. [...] EVERY DAY 90 tablet 3 5 Active fluticasone (Flonase) 50 MCG/ACT nasal [...] 60 tablet 3 5 03/19/19 26 Active cholecalciferol (Vitamin D-3) 50 MCG (1999 UT) capsule Take 1 capsule (50 mcg) by mouth Once per day. 90 capsule 5 Active polycarbophil (Fibercon) 625 MG tablet Take 1 tablet (625 mg) by mouth 2 times daily. 180 tablet 5 03/19/19 Active fluticasone furoate (Arnuity Ellipta) 100 MCG/ACT inhaler Inhale 1 puff Once per day. Rinse mouth with water after use to reduce aftertaste and incidence of candidiasis. Do not swallow. 3 each 5 03/19/19 Active albuterol 108 (90 Base) MCG/ACT inhaler Inhale 2 puffs every 4 (four) hours if needed for shortness of breath or wheezing. 18 g 5 03/19/19 26 Active Lidoderm 5 % patch Apply 2 patches topically if needed each day for mild pain. Remove & discard patch within 12 hours or as directed by MD. 60 patch 5 03/19/19 26 Active diclofenac (Voltaren) 50 MG EC tabletIndication s:Chronic low back pain, unspecified back pain laterality, unspecified whether sciatica present Take 1 tablet (50 mg) by mouth if needed in the morning and at bedtime (pain). Do not crush, chew, or split. 30 tablet 5 Active amitriptyline (Elavil) 10 MG tablet TAKE 1 TABLET BY MOUTH AT BEDTIME 30 tablet 5 Active Diclofenac Sodium 1 % gelIndications:N beatris pain APPLY 2 G TOPICALLY IF NEEDED IN THE MORNING, AT NOON, IN THE EVENING, AND AT BEDTIME (PAIN). 100 g 5 Active baclofen (Lioresal) 20 MG tablet TOME AYESHA TABLETA PRINCE VECES AL JUS PARA EL ESPASMO MUSCULAR CUANDO SEA NECESARIO OR PAIN 90 tablet 5 Active GaviLAX 17 GM/SCOOP powder TAKE 17 G BY MOUTH IF NEEDED EACH DAY (CONSTIPATION). 510 g 5 Active hydroCHLOROthiaz carolina (HYDRODiuril) 25 MG tablet TAKE 1 TABLET BY MOUTH ONCE A DAY 90 tablet 1 5 Active Active Problems Problem Noted Date Diagnosed Date [...] Encounters Date Type Department Care Team Description 01/29/2025 Orders Only [facility] External Provider, [facility] from Last 3 Months Immunizations Immunization Administration Dates Next Due Influenza injectable quadriv [...] 88 03/19/2024 9:51 AM EST Temperature 36.3 C (97.4 F) 03/19/2024 9:51 AM EST Respiratory Rate 20 03/19/2024 9:51 AM EST [...] 1965 FIT 1966 FOBT 1965 Sigmoidoscopy 1965 Disability Screening 1966 Hepatitis B Vaccines (1 of 3 - 19+ 3-dose series) 1985 RSV Patients and Patients Aged 60 years or older (1 - Risk 50-74 years 1-dose series) 01/19/2016 Depression Screening 06/01/2023 05/31/2022, 06/01/19 COVID-19 Vaccine ( season) 2024 02/01/2022, 07/13/2021, 02/02/2021, Additional history exists Influenza Vaccine (#1) 2024 , 02/16/2021, 12/15/2019, Additional history exists SDOH Screening 03/12/2025 03/12/2024 Tobacco Screening 03/12/2025 03/12/2024 Alcohol/Substance Use Screening 03/19/2025 03/19/2024 Lung Cancer Screening 01/29/2026 01/29/2025, 024 Mammogram 05/16/2026 05/16/2024, 04/14, 04/29/2022, Additional history exists Cervical Cancer Screening 06/02/2026 HPV/Cotest 06/02/2026 06/02/2021, 06/08/2018 Pap Smear 06/02/2026 06/02/2021 Colonoscopy 03/04/2027 03/04/2022 Colorectal Cancer Screening 03/04/2027 Lipid Panel 03/19/2029 03/19/2024, 05/12, 01/14/2022, Additional history exists DTaP/Tdap/Td Vaccines (3 - Td or Tdap) 02/16/2031 02/16/2021, 08/20/2009 Zoster Vaccines Completed 06/27/2021, 04/27/2021 HIV Screening Completed 03/19/2024 Hepatitis C Screening Completed 03/19/2024 Pneumococcal Vaccine: 50+ Years Completed 03/19/2024, 04/01/2014 HIB Vaccines Aged Out No longer eligi ble based on patient's age to complete this topic HPV Vaccines Aged Out No longer eligi ble based on patient's age to complete this topic Hepatitis A Vaccines Aged Out No long er eligible based on patient's age to complete this topic IPV Vaccines Aged Out No longer eligi ble based on patient's age to complete this topic Meningococcal B Vaccine Aged Out No l onger eligible based on patient's age to complete [...] SCREENING Routine 01/29/2025 9 :14 AM EST BI MAMMOGRAM SCREENING TOMOSYNTHESIS BILATERAL Routine 05/16/2024 11:16 AM EST Encounter for screening mammogram for malignant neoplasm of breast HEPATITIS C AB W/REFL TO HCV RNA, [...] skin tags Healthcare maintenance Encounter for immunization HM COLONOSCOPY Routine 03/04/2022 HPV MRNA E6/E7 REFLEX TO HPV 16, 18/45 Routine 06/02/2021 9:23 AM EDT THINPREP IMAGING SYSTEM PAP Routine 06/02/2021 9:23 AM EDT from Last 3 Months or Most Recently Relevant to Health Maintenance Results * CT Lung Screening Low dose (01/29/2025 9:14 AM EST) Anatomical Region Laterality Modality Lung Computed Tomogra phy 01/29/2025 9:14 AM EST Narrative 01/29/2025 10:22 AM EST [address] [address] [address] Scan Report Signed Patient: Natalie Aranda#: [id number] : 1965 Acct:[id number] Age/Sex: 60 / F ADM Date: 01/29/25 Loc: HO.CT Attending Dr: Breanne José PA-C Ordering Physician: Breanne José PA-C Date of Service: 01/29/25 Procedure(s): CT lung screening Accession Number(s): [id number] cc: Beth Alfredo DO; Breanne José PA-C Report Number: [id number]: Total DLP = 120.00 mGy-cm Reason for [...] for CT CHEST LOW DOSE CANCER SCREENING ([id number]) can be placed. Electronically signed by: Kamlesh Hernandez MD 01/29/2025 10:19 AM EST Dictated By: Kamlesh Hernandez MD Signed By: <Electronically signed by Kamlesh Hernandez MD in OV> 01/29/25 1019 DD/ TD/TT: 01/29/2544 Digital Intern: Procedure Note Donotuseinterpreter, Image - 01/29/[address] [address] [address] Scan Report Signed Patient: Natalie Aranda EM R#: [id number] : 1965Acct:[id number] Age/Sex: 60 / FADM Date: 01/29/25 Loc: HO.CT Attending Dr: Breanne José PA-C Ordering Physician: Breanne José PA-C Date of Service: 01/29/25 Procedure(s): CT lung screening Accession Number(s): [id number] cc: Beth Alfredo DO; Breanne José PA-C Report Number: [id number]: Total DLP = 120.00 mGy-cm Reason for [...] for CT CHEST LOW DOSE CANCER SCREENING ([id number]) can be placed. Electronically signed by: Kamlesh Hernandez MD 01/29/2025 10:19 AM EST Dictated By: Kamlesh Hernandez MD Signed By: <Electronically signed by Kamlesh Hernandez MD in OV> 01/29/25 1019 DD/ 0914 TD/TT: 01/29/25 0944 Digital Intern: [facility] External Provider IMG CT PROCEDURES Edited Result - Final * BI Mammogram Screening Tomosynthesis Bilateral (05/16/2024 11:16 AM EST) Anatomical Region Laterality Modality Breast Bilateral Mammography 05/16/2024 11:1 6 AM EST Narrative 05/25/2024 4:09 PM EDT [address] [place] [address] Mammography Report Signed Patient: Natalie Aranda R#: [id number] : 1965 Acct:[id number] Age/Sex: 59 / F ADM Date: 05/16/24 Loc: HO.MAMMO Attending Dr: Beth Alfredo DO Ordering Physician: Beth Alfredo DO Results: 2B enign Findings Date of Service: 05/16/24 Follow Up: 1 Year From Orig inal Mammogram Procedure(s): MM tomosynthesis screening BI Accession Number(s): [id number] cc: Beth Alfredo DO EXAMINATION: MM SCREENING DIGITAL BREAST TOMOSYNTHESIS, BILATERAL CLINICAL INFORMATION: Screening. Asymptomatic. COMPARISON: Mammography: Comparison is made with available priors TECHNIQUE: Digital breast mammography with tomosynthesis is performed in both the craniocaudal and mediolateral oblique views along with computer-aided detection (CAD). FINDINGS: There are scattered areas of fibroglandular density (ACR BI-RADS breast composition Category b). Right breast marker clip from previous benign needle core biopsy. There are no significant masses, abnormal calcifications, or other abnormalities. MM/MM tomosynthesis screening BI IMPRESSION: No mammographic evidence of malignancy. ASSESSMENT: BI-RADS BI-RADS 2 - Benign Findings RECOMMENDATION: Routine annual mammography screening. 1 year F/U This examination should not preclude the clinical evaluation of a suspicious palpable abnormality. This patient's information was entered into a reminder system with a target due date for their next mammogram. Electronically signed by: Elham Dutton DO 05/25/2024 04:06 PM EDT Dictated By: Elham Dutton DO Signed By: <Electronically signed by Elham Dutton DO in OV> 05/25/24 1606 DD/ 1116 TD/TT: 05/16/24 1133 Digital Intern: Procedure Note Donotuseinterpreter, Image - 05/25/2024 [place] [facility] [address] [place], [place] [address] Mammography Report Signed Patient: Natalie rAanda R#: [id number] : 1965Acct:[id number] Age/Sex: 59 / FADM Date: 05/16/24 Loc: HO.MAMMO Attending Dr: Beth Alfredo DO Ordering Physician: Beth Alfredoults: 2B enign Findings Date of Service: 05/16/24Follow Up: 1 Year From Orig ina Mammogram Procedure(s): MM tomosynthesis screening BI Accession Number(s): [id number] cc: Beth Alfredo DO EXAMINATION: MM SCREENING DIGITAL BREAST TOMOSYNTHESIS, BILATERAL CLINICAL INFORMATION: Screening. Asymptomatic. COMPARISON: Mammography: Comparison is made with available priors TECHNIQUE: Digital breast mammography with tomosynthesis is performed in both the craniocaudal and mediolateral oblique views along with computer-aided detection (CAD). FINDINGS: There are scattered areas of fibroglandular density (ACR BI-RADS breast composition Category b). Right breast marker clip from previous benign needle core biopsy. There are no significant masses, abnormal calcifications, or other abnormalities. MM/MM tomosynthesis screening BI IMPRESSION: No mammographic evidence of malignancy. ASSESSMENT: BI-RADS BI-RADS 2 - Benign Findings RECOMMENDATION: Routine annual mammography screening. 1 year F/U This examination should not preclude the clinical evaluation of a suspicious palpable abnormality. This patient's information was entered into a reminder system with a target due date for their next mammogram. Electronically signed by: Elham Dutton DO 05/25/2024 04:06 PM EDT Dictated By: Elham Dutton DO Signed By: <Electronically signed by Elham Dutton DO in OV> 05/25/24 1606 DD/ 1116 TD/TT: 05/16/24 1133 Digital Intern: Beth Alfredo DO IMG BI PROCEDURES Final Resu lt * Hepatitis C Antibody with Reflex to HCV, RNA, Quantitative, Real-Time PCR (03/19/2024 10:50 AM EST) Hepatitis C Antibody Nonreactive Nonreactive [facility] Comment:Antibodies to HCV no t detected; does not exclude early acuteHCV infection. Blood Venous blood specimen / Unknown 03/19/2024 10:50 AM EST 03/19/2024 1:00 PM EST Beth Alfredo [facility] LAB BLOOD ORDERABLES Final R esult Performing Organization Address [facility] Co de Phone Number [facility] [address] [place] [phone] * HIV-1/2 Antigen and Antibodies, Fourth Generation, with Reflexes (03/19/2024 10:50 AM EST) HIV AB/AG Nonreactive Nonreactive [facility] Comment:HIV-1 p24 Ag and/or HIV-1/HIV-2 Ab not detected.A test result that is nonreactive does not exclude thepossibility of exposure to or infection with HIV-1 and/orHIV-2. Nonreactive results in this assay for individualswith prior exposure to HIV-1 and/or HIV-2 may be due toantigen and antibody levels that are below the limit ofdetection of this assay.The [place] HIV Ag/Ab Combo assay result andsupplemental assay results should be interpreted inconjunction with the patient's clinical presentation,history and other laboratory results. If the results areinconsistent with clinical evidence, additional testing issuggested to confirm the result. Blood Venous blood specimen / Unknown 03/19/2024 10:50 AM EST 03/19/2024 1:00 PM EST Beth Juni [facility] LAB BLOOD ORDERABLES Final R esult Performing Organization Address [facility]/ZIP Co de Phone Number [facility] [address] [place] [phone] [phone] * (ABNORMAL) Lipid Panel, Standard (03/19/2024 10:50 AM EST) Triglycerides 156(H) <150 mg/dL [facility] Comment:Desirable Triglyceri de: less than 150 mg/dLBorderline High Triglyceride 150-199 mg/dLHigh Triglyceride: 200-499 mg/dLVery High Triglyceride: greater than or equal to 5OO mg/dL Cholesterol 147 <200 mg/dL [facility] Comment:Desirable Cholestero l: less than 200 mg/dLBorderline High Cholesterol: 200-239 mg/dLHigh Cholesterol: greater than 239 mg/dL LDL Cholesterol Calculated 74 <100 mg/dL [facility] Comment:Desirable LDL: less than 100 mg/dLNear Optimal/Above Optimal LDL: 110- 129 mg/dLBorderline High LDL: 130-159 mg/dLHigh LDL: 160-189 mg/dLVery High LDL: greater than or equal to 190 mg/dL HDL Cholesterol 42 >40 mg/dL [facility] Comment:Desirable HDL: great er than 40 mg/dL Note: This HDL assay may give artificially low results in patients with liver disease. Blood Venous blood specimen / Unknown 03/19/2024 10:50 AM EST 03/19/2024 1:00 PM EST Beth Alfredo DO LAB BLOOD ORDERABLES Final R esult [facility] [address] [place] [address] [phone] * Hm Colonoscopy (03/04/2022) Colonoscopy Normal Normal Narrative RositaLuisana gregorio - 03/04/2022 Repeat Colonoscopy interval based on path results in 3-5 years. See external hospital admission note on 03/04/2022 us Historical Provider HEALTH MAINTENANCE Final Result * THINPREP TIS PAP (06/02/2021 9:23 AM EDT) Clinical Information: None given [facility] COMMENT SEE COMMENT [facility] Comment: EXPLANATORY NOTE: The Pap is a screening test for cervical cancer. It is not a diagnostic test and is subject to false negative and false positive results. It is most reliable when a satisfactory sample, regularly obtained, is submitted with relevant clinical findings and history, and when the Pap result is evaluated along with historic and current clinical information. COMMENT: This Pap test has been evaluated with computer assisted technology. [facility] Alto Singer : SEE COMMENT [facility] Comment: [facility], CT(ASCP) CT screening location: [place] [address] Interpretation/R esult: Negative for intraepithelial lesion or malignancy. [facility] LMP: NONE GIVEN [facility] Prev. BX: NONE [facility]IVEN [facility] Prev. PAP: NONE GIVEN [facility] SOURCE: None given [facility] Statement Of Adequacy: SEE COMMENT [facility] Comment: Satisfactory for evaluation. Endocervical/transformation zone component absent. 06/02/2021 9:23 AM EDT Beth Alfredo DO LAB PATHOLOGY ORDERABLES Fin al Result Performing Organization Address [facility] Co de Phone Number [facility] [address] * HPV mRNA E6/E7 REFLEX TO HPV 16, 18/45 (06/02/2021 9:23 AM EDT) HPV nRNA E6/E7 Not Detected Not Detected [facility] Comment: Methodology: School Psychology Specialist-Mediated Amplification This assay detects E6/E7 viral messenger RNA (mRNA) from 14 high-risk HPV types (16,18,31,33,35,39,45,51,52,56,58,59,66,68). The analytical performance characteristics of this assay have been determined by [place]. The modifications have not been cleared or approved by the FDA. This assay has been validated pursuant to the CLIA regulations and is used for clinical purposes. For additional information, please refer to http://education.Moxtra.DroidUnit.net/faq/KEC341j2 (This link if provided for information/ educational purposes only.) 06/02/2021 9:23 AM EDT Beth Alfredo DO LAB CYTOLOGY ORDERABLES Nevin l Result Performing Organization Address [facility] Co de Phone Number [facility] [address] from Last 3 Months or Most Recently Relevant to Health Maintenance Insurance [facility] C3 Care Teams Residential Instructor Relationship Specialty Start Date End Date Beth Alfredo DO [address] [place] [phone] PCP - General Family Medicine 11/25/14
--- OUTSIDE RECORDS SUMMARY | 2025-01-29 16:19 | XMS_ITS | Encounter Summary ---
Author Organization [employer] Address [address] [facility] 7t [place] [address] Care Team Providers Care Trim Machine Operator Name Role Phone Beth Alfredo DO Primary Care Provider + [phone] Encounter Details Date Type Department Care Team ([facility] st Contact Info) Description 06/22/2022 Orders Only [facility] [address] [place] [address] Beth Alfredo DO [address] [place] [address] Social History Tobacco Use Types Packs/Day Years [...] documented as of this encounter Care Teams Trim Machine Operator Relationship Specialty Start Date End Date Beth Alfredo DO [address] [place] [address] PCP - General Family Medicine 11/25/14 documented as of this encounter
--- OUTSIDE RECORDS SUMMARY | 2025-01-29 16:19 | XMS_ITS | Encounter Summary ---
Author Organization [employer] Address [address] [place] [address] [address]t [place] [address] Care Team Providers Care Brewery Worker Name Role Phone Beth Alfredo DO Primary Care Provider + [phone] Reason for Visit * Reason Comments Med Refill Encounter Details Date Type Department Care Team (Late st Contact Info) Description 08/23/2022 Refill [facility] [address] [place] [address] Beth Alfredo DO [address] [place] [address] Tobacco dependence Social History Tobacco Use Types [...] documented as of this encounter Care Teams Brewery Worker Relationship Specialty Start Date End Date Beth Alfredo DO [address] [place] [address] PCP - General Family Medicine 9/15/15 documented as of this encounter
== END 2025-01-29 08:36 | disposition home or self-care (01) ==
LOC: HO.CT 08:35
PROVIDERS: PCP Family Medicine; Visit Provider Physician Assistant Medical
DX: Z12.2 Encounter for screening for malignant neoplasm of respiratory organs (principal); F17.210 Nicotine dependence, cigarettes, uncomplicated
CPT/HCPCS: 71271

== ENCOUNTER → 2025-01-29 08:37 | Outpatient (BNV) | payer MEDICAID, SELFPAY | PROVIDERS: PCP Family Medicine; Visit Provider Radiology Diagnostic Radiology | DX: F17.210 Nicotine dependence, cigarettes, uncomplicated (principal) | CPT/HCPCS: 71271 ==